=== PATIENT | female | born 1995 | race Caucasian/White ===

== ENCOUNTER 2019-10-01 10:53 | Outpatient (CLI) | payer OTHER, SELFPAY ==
--- NOTE | 2019-10-01 11:07 | US_ITS ---
WS: [id number] ULTRASOUND THYROID TECHNIQUE: Ultrasound of the thyroid. CLINICAL INFORMATION: enlarged thyroid COMPARISON: None. FINDINGS: Thyroid: Right and left thyroid lobes are normal in size and echotexture. No thyroid nodules are pres ent. Right thyroid lobe: 5.7 cm x 1.8 cm x 1.8 cm Left thyroid lobe: 4.3 cm x 1.6 cm x 1.1 cm. Isthmus: 0.3 mm. Cervical lymphadenopathy: None. US/US thyroid [id number] IMPRESSION: Normal thyroid ultrasound examination.
--- NOTE | 2019-10-01 11:31 | XR_ITS ---
WS: [id number] Lumbar spine, 3 views, 10/01/2019 Clinical Data: LUMBAR PAIN DOWN LEFT LEG/SCIATICA Comparison: None. Findings: No compression fractures or subluxation is seen. No disc space narrowing is seen. The transverse proc esses and SI joints are normal. XR/XR lumbar spine 2-3V* [id number] Impression: Negative lumbar spine.
== END 2019-10-01 10:54 | disposition home or self-care (01) ==
PROVIDERS: Family Provider Nurse Practitioner; PCP Nurse Practitioner; Visit Provider Nurse Practitioner
DX: M54.30 Sciatica, unspecified side (principal); E04.9 Nontoxic goiter, unspecified
CPT/HCPCS: 72100; 76536; 80053; 84443

== ENCOUNTER 2020-04-24 16:45 | Outpatient (CLI) | payer OTHER, SELFPAY ==
--- NOTE | 2020-04-24 16:45 | MRR_ITS ---
PROCEDURE INFORMATION: Exam: MR Head Without Contrast Exam date and time: 04/24/2020 4:50 PM Age: 24 years old Clinical indication: Pain; Headache; Without aura; Does respond to medication; Without migrainosus; Patient HX: HX of chronic migraine, recently getting worse in severity and longevity; Additional info: G43.709 chronic migraine without aura, not intractable, w. . . TECHNIQUE: Imaging protocol: MR of the head without contrast. COMPARISON: No relevant prior studies available. FINDINGS: Brain: There is no acute intracranial hemorrhage, cerebral edema, or midline shift. No restricted diffusion is present to suggest acute infarction. Ventricles: No hydrocephalus. Bones/joints: Unremarkable. Sinuses: There is a small mucus retention cyst or polyp within the right maxillary sinus. Mastoid air cells: The mastoid air cells are clear. Orbits: Unremarkable. Soft tissues: Unremarkable. MR/MR head wo con* [id number] IMPRESSION: No acute intracranial abnormality.
== END 2020-04-24 16:46 | disposition home or self-care (01) ==
LOC: RADSHAW 16:51
PROVIDERS: PCP Nurse Practitioner; Visit Provider Nurse Practitioner Family
DX: G43.709 Chronic migraine without aura, not intractable, without status migrainosus (principal)
CPT/HCPCS: 70551

== ENCOUNTER → 2020-05-20 14:52 | Outpatient (BNVA) | payer OTHER, SELFPAY | PROVIDERS: PCP Nurse Practitioner; Visit Provider Internal Medicine | DX: R63.5 Abnormal weight gain (principal); E66.01 Morbid (severe) obesity due to excess calories; Z68.41 Body mass index [BMI] 40.0-44.9, adult; G43.709 Chronic migraine without aura, not intractable, without status migrainosus; L68.0 Hirsutism | CPT/HCPCS: 99204 ==

== ENCOUNTER 2020-05-23 09:04 | Outpatient (CLI) | payer OTHER, SELFPAY ==
[2020-05-23 10:22] LABS: Thyroid Stimulating Hormone 2.19 uIU/mL (0.27-4.20)
== END 2020-05-23 09:05 | disposition home or self-care (01) ==
PROVIDERS: PCP Nurse Practitioner; Visit Provider Internal Medicine
DX: G43.709 Chronic migraine without aura, not intractable, without status migrainosus (principal)
CPT/HCPCS: 36415; 84443

== ENCOUNTER → 2020-07-21 14:26 | Outpatient (BNVA) | payer OTHER, SELFPAY | PROVIDERS: PCP Nurse Practitioner; Visit Provider Internal Medicine | DX: E66.01 Morbid (severe) obesity due to excess calories (principal); Z68.41 Body mass index [BMI] 40.0-44.9, adult; L68.0 Hirsutism; R63.5 Abnormal weight gain | CPT/HCPCS: 99213 ==

== ENCOUNTER → 2020-10-27 16:43 | Outpatient (BNVA) | payer OTHER, SELFPAY | PROVIDERS: PCP Nurse Practitioner; Visit Provider Nurse Practitioner | DX: Z12.4 Encounter for screening for malignant neoplasm of cervix (principal); Z11.3 Encounter for screening for infections with a predominantly sexual mode of transmission; N72 Inflammatory disease of cervix uteri; Z30.49 Encounter for surveillance of other contraceptives | CPT/HCPCS: 87491; 87591; 88175 ==

== ENCOUNTER 2021-05-15 10:55 | Outpatient (CLI) | payer OTHER, SELFPAY ==
[2021-05-15 11:22] LABS: Basophils % 0.7 %; Eosinophils # 0.1 10^3/uL (0.0-0.8); Hematocrit 39.3 % (37.0-47.0); Hemoglobin 12.6 g/dL (11.5-15.3); Lymphocytes % 33.3 %; Mean Corpuscular HGB Conc 32.1 g/dL (30.0-36.0); Mean Corpuscular Hemoglobin 26.6 pg (28.0-34.0); Mean Corpuscular Volume 83.1 fl (81-99); Mean Platelet Volume 9.9 fL (7.4-10.4); Monocytes # 0.4 10^3/uL (0.2-0.9); Monocytes % 6.8 %; Neutrophils # 3.38 10^3/uL (1.8-7.7); Neutrophils % 57.9 %; Nucleated Red Blood Cells % 0 %; Platelet Count 330 10^3/cmm (130-400); Red Blood Count 4.73 10^6/uL (4.1-5.3); Red Cell Distribution Width 15.4 % (12.1-15.1); White Blood Count 5.9 10^3/uL (4.0-10.0)
[2021-05-15 11:55] LABS: 25 Hydroxy Vitamin D 35 ng/mL (30-100); Alanine Aminotransferase 10 U/L (0-33); Albumin Level 4.2 g/dL (3.5-5.2); Alkaline Phosphatase 62 IU/L (35-105); Anion Gap 16.1 (5-19); Aspartate Amino Transferase 15 U/L (0-32); Blood Urea Nitrogen 8 mg/dL (6-20); Calcium 9.1 mg/dL (8.5-10.5); Carbon Dioxide 21 mmol/L (22-29); Chloride 107 mmol/L (98-107); Chol HDL Ratio 3.16 mg/dL (0.0-4.40); Cholesterol 180 mg/dL (0-200); Glomerular Filtration Rate 88.9 mL/min (90-130); Glucose 119 mg/dL (65-115); HDL Cholesterol 57 mg/dL (60-100); LDL Cholesterol Calculated 93 mg/dL (50-129); Osmolality Calculated 289 mOsm/kg (285-295); Potassium 4.1 mmol/L (3.5-5.1); Sodium 140 mmol/L (136-145); Thyroid Stimulating Hormone 1.36 uIU/mL (0.27-4.20); Total Bilirubin 0.2 mg/dL (0.15-1.2); Total Protein 7.2 g/dL (6.6-8.7); Triglycerides 151 mg/dL (0-150); VLDL Cholestrol Calculation 30 mg/dL (0-30); Vitamin B12 406 pg/mL (232-1245)
[2021-05-17 16:59] LABS: Thyroglobulin AB <1 IU/mL (< or = 1)
== END 2021-05-15 10:56 | disposition home or self-care (01) ==
PROVIDERS: PCP Nurse Practitioner; Visit Provider Nurse Practitioner
DX: R53.83 Other fatigue (principal); E55.9 Vitamin D deficiency, unspecified
CPT/HCPCS: 80053; 80061; 82306; 82607; 84443; 85025; 86800

== ENCOUNTER → 2021-06-01 11:34 | Outpatient (BNVA) | payer OTHER, SELFPAY | PROVIDERS: PCP Nurse Practitioner; Visit Provider Nurse Practitioner | DX: J02.0 Streptococcal pharyngitis (principal) | CPT/HCPCS: 87880 ==

== ENCOUNTER 2021-07-07 12:50 | Outpatient (CLI) | payer OTHER, SELFPAY ==
[2021-07-07 13:37] LABS: Estmated Average Glucose 100; Hemoglobin A1C 5.1 % (4.0-6.0)
== END 2021-07-07 12:51 | disposition home or self-care (01) ==
PROVIDERS: PCP Nurse Practitioner; Visit Provider Nurse Practitioner
DX: R73.9 Hyperglycemia, unspecified (principal)
CPT/HCPCS: 83036

== ENCOUNTER 2021-08-20 20:02 | Emergency (ER) | payer OTHER, SELFPAY ==
[2021-08-20 20:09] VITALS: BP 158/106; PULSE 104; RESP 16; TEMP 36.7; O2SAT 99
--- NOTE | 2021-08-20 20:14 | ED_ITS ---
HPI - Extremity Problem General: Chief complaint: Extremity Problem,Nontraumatic Stated complaint: Rtb Leg Pain-Burning Time Seen by Provider: 08/20/21 20:09 History of Present Illness: HPI Narrative: Patient is a 25-year-old female comes to the ED with right leg pain. Patient says symptoms started yesterday. She denies any injury or trauma to cause pain. Says pain is located in right lower leg near calf muscle. She says that some burning type pain. She admits to having a history of sciatica, but never has pain radiate all the way down to her lower leg and it usually stops around the thigh region. Denies any history of DVTs or blood clots. Patient is currently on control. She denies any chest pain, shortness of breath or hemoptysis. Associated symptoms: Deny chest pain, fever(s) or rash Review of Systems Const: Denies: fever(s), chills or fatigue Eyes: Denies: change in vision or eye discomfort ENMT: Denies: throat pain, odynophagia, nasal discharge or nasal congestion Card: Denies: chest pain, palpitations, edema, swelling of feet/ankles, dyspnea on exertion or orthopnea Resp: Denies: dyspnea, productive cough or non-productive cough GI: Denies: abdominal pain, nausea, vomiting, diarrhea, constipation or hematochezia : Denies: flank pain, dysuria or hematuria Musc: Reports: extremity pain (right lower leg); Denies: neck pain, back pain or extremity swelling Skin/Breast: Denies: rash or new lesions Neuro: Denies: headache(s), numbness in extremities or weakness in extremities [facility] ED PFSH: Medical History Anxiety Chronic migraine Encounter for surveillance of nuvaring Obesity (BMI 30-39.9) Surgical History History of tonsillectomy and adenoidectomy age 5 Family History Other Cancer Diabetes Heart disease Hypertension Social History Second hand smoke exposure: No Smoking risk assessment/counseling performed?: No Alcohol intake: current Alcohol intake frequency: holidays/special occasions only Desire information about alcohol rehabilitation?: No Counseling given: No Desire information about substance/drug rehabilitation?: No Counseling given: No Adopted: No Caregiver/support person: No Lives independently: Yes Household members: significant other Housing: House Marital status: Single Number of children: 0 service: No Current occupational status: employed Current occupation: [employer] – [place] History of recent travel: No Sexually active: Yes Current gender identity: Female Physical Exam Const: COMMON NORMALS: no acute distress, patient oriented x3, healthy appearing and alert GENERAL APPEARANCE: cooperative and comfortable HENMT: COMMON NORMALS: normocephalic HEAD & SCALP: normocephalic MOUTH: Normal oral and palatal mucosa present THROAT: posterior oropharynx normal and uvula midline Neck/C-Spine: COMMON NORMALS: supple GENERAL: Yes normal visual inspection Resp: COMMON NORMALS: normal respiratory effort, No retractions, No use of accessory muscles and clear to auscultation bilaterally AUSCULTATION: clear to auscultation bilaterally Cardio: COMMON NORMALS: regular rate, regular rhythm, S1 normal heart sound present, S2 normal heart sound present, No gallops present (Cardio), No clicks present (Cardio), No murmurs present (Cardio) and Peripheral pulses 2+ throughout RATE: regular rate RHYTHM: regular rhythm HEART SOUNDS: S1 normal heart sound present and S2 normal heart sound present PERIPHERAL PULSES: Peripheral pulses 2+ throughout GI: COMMON NORMALS: Normal to inspection, nondistended, normoactive bowel sounds present, Soft to palpation, non-tender and no masses PALPATION: Yes Soft to palpation : COMMON NORMALS: Yes no CVA tenderness BLADDER/KIDNEY EXAM: Yes no CVA tenderness Back/Pelvis: COMMON NORMALS: no CVA tenderness Extremity: COMMON NORMALS: normal to inspection, full ROM, no calf tenderness and no pedal edema Neuro: COMMON NORMALS: patient oriented x3 and moves all extremities SENSORIUM/ORIENTATION: Yes alert Skin: GENERAL SKIN EXAM: dry skin Course Vital Signs: Vital signs: Vital Signs Temperature 98.0 F 08/20/21 20:09 Pulse Rate 104 H 08/20/21 20:09 Respiratory Rate 16 08/20/21 20:09 Blood Pressure 158/106 08/20/21 20:09 Pulse Oximetry 99 08/20/21 20:09 MDM - Extremity (Nontraumatic) MDM Narrative: Medical decision making narrative: Patient is a 25-year-old female comes to the ED with nontraumatic pain then paresthesia to localized spot on right lower leg. Denies any injury. Patient has a history of sciatica pain. Denies any chest pain, shortness of breath or hemoptysis. Vital stable. Exam is benign and patient has no right lower extremity edema or calf tenderness. Ultrasound venous duplex right lower extremity showed no DVTs or blood clots. Patient was diagnosed with paresthesia and pain of right lower extremity. She was discharged home with a prescription for prednisone. Return to ED precautions given. Follow-up with PCP in 7 to 10 days for reevaluation. Patient understood agree with plan. Imaging Data^: US Vascular: Attestation: I personally reviewed and interpreted this imaging study as follows: Radiologist's impression: Ultrasound venous duplex right lower extremity?prelim report no DVTs or blood clots seen. Discharge Plan Discharge Patient Disposition: Home Clinical Impression: Paresthesia and pain of extremity Condition: Stable Prescriptions: New prednisone 20 mg tablet 20 mg PO BID 5 Days Qty: 10 RF: 0 No Action Contrave 8-90 mg tablet extended release 2 tab PO BID Qty: 120 RF: 2 NuvaRing 0.12-0.015 mg/24 hr ring 1 vag ring VAGINAL .wear for 3 weeks 90 Days Qty: 3 RF: 3 Discharge Orders: Discharge ED (Routine); Ordered 08/20/21 Ordered By: Ty Maddox Referrals: Manpreet Alonzo, [facility] [Primary Care Provider] - Discharge Diet: Regular Discharge Activity: Resume usual activity Activity Restrictions/Additional Instructions: Follow-up with medical provider as directed in 7 to 10 days reevaluation. Apply cold pack on painful sore areas of right lower leg to help with symptoms. Take medications as prescribed. Return to the ER or your medical provider if condition worsens. Please read and understand discharge instructions. Thank you for choosing [facility] for your healthcare needs today. Please realize this is an emergency room and that we are providing you with a medical screening exam and this may not be complete and all inclusive of all the testing and or work up that you may need to determine your ailment or severity of your illness. It is very important that you follow up as instructed or that you return to the Emergency Department should you have concerns or if your condition changes or worsens in any way. Coding Level of Care Code ED Counter Tender for Chg Fwd Exam Comprehensive
--- NOTE | 2021-08-20 20:21 | USR_ITS ---
PROCEDURE INFORMATION: Exam: US Duplex Right Lower Extremity Veins, Limited Exam date and time: 08/20/2021 8:21 PM Age: 25 years old Clinical indication: Pain; Leg, lower; Right; Additional info: Non traumatic pain in right lower leg TECHNIQUE: Imaging protocol: Real-time Duplex ultrasound of the Right Lower Extremity with 2-D dueñas scale, color Doppler flow and spectral waveform analysis with image documentation. Limited exam was focused on the right lower extremity veins. COMPARISON: CT Abdomen/Pelvis Renal [id number] 07/21/2017 12:55 PM FINDINGS: Real-time grayscale, Doppler, color Doppler and duplex imaging of the right lower extremity was performed. Spectral analysis was performed. There is normal flow and compressibility of the common femoral, superficial femoral and popliteal veins. There is normal augmentation. There is no intraluminal thrombus. The visualized calf veins were unremarkable. US/[place] [id number] IMPRESSION: No evidence for deep venous thrombosis. Radiation Dose CTDIVOL = (mGy): DLP = (mGy-cm)
== END 2021-08-20 21:41 | disposition home or self-care (01) ==
PROVIDERS: Emergency Provider Physician Assistant; PCP Nurse Practitioner
DX: R20.2 Paresthesia of skin (principal); M79.604 Pain in right leg
CPT/HCPCS: 93971; 99282

== ENCOUNTER 2021-11-25 08:05 | Outpatient (CLI) | payer OTHER, SELFPAY ==
--- NOTE | 2021-11-25 08:21 | FL_ITS ---
WS: [id number] Barium swallow and esophagram, upper GI series with air, 11/25/2021 Clinical Data: K21.9 - Gastro-esophageal reflux disease without esophagitis Comparison: None. Fluoroscopy time: 1.1 minutes. Findings: The patient swallowed the thick and thin barium, and it flowed through the hypopharynx without hesita tion. No stricture, mass, polyp or erosion was seen. The barium into the esophagus and there was normal motility throughout. No hiatal hernia, reflux, str icture, polyp, mass, erosion or ulcer was noted. The barium passed into the stomach which was well distended. No erosion, polyp, mass or deformity cou ld be seen. No gastric ulcer was present. Barium then passed into the duodenal bulb which distended normally without ulceration. The proximal small bowel is normal. FL/FL upper GI w air* [id number] Impression: Normal esophagram and upper GI series.
== END 2021-11-25 08:06 | disposition home or self-care (01) ==
LOC: RAD 08:05
PROVIDERS: PCP Nurse Practitioner; Visit Provider Surgery
DX: K21.9 Gastro-esophageal reflux disease without esophagitis (principal)
CPT/HCPCS: 74246

== ENCOUNTER 2022-01-20 12:48 | Outpatient (CLI) | payer OTHER, SELFPAY ==
[2022-01-20 14:33] LABS: Basophils # 0.1 10^3/uL (0.0-0.1); Basophils % 0.9 %; Eosinophils % 0.5 %; Hematocrit 35.2 % (37.0-47.0); Hemoglobin 11.3 g/dL (11.5-15.3); Mean Corpuscular HGB Conc 32.1 g/dL (30.0-36.0); Mean Corpuscular Hemoglobin 27.4 pg (28.0-34.0); Mean Corpuscular Volume 85.4 fl (81-99); Mean Platelet Volume 10.2 fL (7.4-10.4); Monocytes # 0.5 10^3/uL (0.2-0.9); Monocytes % 8.5 %; Neutrophils # 2.91 10^3/uL (1.8-7.7); Neutrophils % 52.9 %; Nucleated Red Blood Cells % 0 %; Platelet Count 335 10^3/cmm (130-400); Red Blood Count 4.12 10^6/uL (4.1-5.3); Red Cell Distribution Width 12.6 % (12.1-15.1); White Blood Count 5.5 10^3/uL (4.0-10.0)
[2022-01-20 14:59] LABS: Alanine Aminotransferase 12 U/L (0-33); Albumin Level 4.4 g/dL (3.5-5.2); Alkaline Phosphatase 65 IU/L (35-105); Chloride 103 mmol/L (98-107); Chol HDL Ratio 3.66 mg/dL (0.0-4.40); Cholesterol 194 mg/dL (0-200); Ferritin 5 ng/mL (15-150); HDL Cholesterol 53 mg/dL (60-100); Iron 37 ug/dL (37-145); LDL Cholesterol Calculated 113 mg/dL (50-129); LDL HDL Ratio 2.13 RATIO (0.00-3.22); Potassium 4.1 mmol/L (3.5-5.1); Sodium 138 mmol/L (136-145); Total Iron Binding Capacity 407 mcg/dl; Triglycerides 140 mg/dL (0-150); Unsaturated Iron Binding 370 ug/dL (112-347)
[2022-01-20 15:04] LABS: Calcium 9.7 mg/dL (8.5-10.5); Parathyroid Hormone 15.3 pg/mL (15-65)
[2022-01-20 15:13] LABS: Folate Level 15.2 ng/mL (4.8-37.3)
[2022-01-20 15:53] LABS: Anion Gap 20.1 (5-19); Aspartate Amino Transferase 15 U/L (0-32); Blood Urea Nitrogen 11 mg/dL (6-20); Calcium 9.7 mg/dL (8.5-10.5); Carbon Dioxide 19 mmol/L (22-29); Globulin 3.3 g/dL (1.3-4.6); Glomerular Filtration Rate 88.1 mL/min (90-130); Glucose 72 mg/dL (65-115); Magnesium 2.3 mg/dL (1.7-2.3); Osmolality Calculated 284 mOsm/kg (285-295); Thyroid Stimulating Hormone 1.39 uIU/mL (0.27-4.20); Total Bilirubin 0.2 mg/dL (0.15-1.2); Total Protein 7.7 g/dL (6.6-8.7); Vitamin B12 419 pg/mL (232-1245)
[2022-01-23 14:02] LABS: Vit D 1,25 (Oh)2, Total 56 pg/mL (18-72); Vit D2 1,25 (Oh)2 <8 pg/mL; Vit D3 1,25 (Oh)2 56 pg/mL
[2022-01-24 16:11] LABS: Vitamin B1(Thiamin) Plas/Ser 8 nmol/L (8-30)
[2022-01-25 11:22] LABS: Zinc Level, Serum or Plasma 81 mcg/dL (60-130)
== END 2022-01-20 12:49 | disposition home or self-care (01) ==
LOC: LAB 12:50
PROVIDERS: PCP Nurse Practitioner; Visit Provider Surgery
DX: E88.81 Metabolic syndrome and other insulin resistance (principal)
CPT/HCPCS: 36415; 80053; 80061; 82310; 82607; 82652; 82728; 82746; 83540; 83550; 83735; 83970; 84425; 84443; 84630; 85025

== ENCOUNTER 2022-02-01 09:35 | Inpatient (IN) | payer OTHER, SELFPAY ==
[2022-01-26 10:22] VITALS: BMI 34.7
--- NOTE | 2022-01-26 15:02 | ANES.PREANE2 ---
Pre-Anesthetic Assessment Height/Weight: Height 1.65 m Weight 94.801 kg Operation Date: 02/01/22 11:50 Proposed Procedures p Laparoscopic Gastric Sleeve w/ EGD 99761/73146/E66.01(Not Applicable) - Scooter Reis MD Familial anesthetic complications: None Was Beta Wolf taken within 24 hours: N/A Was Clonidine taken within 24 hours: N/A Social No alcohol and No tobacco Exam alert, oriented x 3, clear to auscultation bilaterally and regular rate & rhythm Airway Submandibular: within normal limits Cervical ROM: within normal limits Mallampati: Class II Dentition: full Metabolic Morbid Obesity Neuropsych Anxiety and Headache Anesthetic Plan ASA status: 2 Anesthesia: General Medications/Allergies Home Medications Medication Instructions Recorded Confirmed Last Taken Type etonogestrel 0.12 mg-ethinyl 1 vag ring VAGINAL .wear for 3 09/20/21 01/26/22 Unknown Rx estradiol 0.015 mg/24 hr vaginal weeks 90 Days #3 ea ring (NuvaRing) Allergies Allergy/AdvReac Type Severity Reaction Status Date / Time No Known Allergies Allergy Verified 01/26/22 10:56 [facility] Anesthesia Medical History Anxiety Chronic migraine Encounter for surveillance of nuvaring Obesity (BMI 30-39.9) Surgical History History of tonsillectomy and adenoidectomy age 5 Family History Other Cancer Diabetes Heart disease Hypertension Social History Smoking and tobacco status: never smoked Second hand smoke exposure: No Smoking risk assessment/counseling performed?: No Alcohol intake: current Alcohol intake frequency: holidays/special occasions only Desire information about alcohol rehabilitation?: No Counseling given: No Desire information about substance/drug rehabilitation?: No Counseling given: No Adopted: No Caregiver/support person: No Lives independently: Yes Household members: significant other Housing: House Marital status: Single Number of children: 0 service: No Current occupational status: employed Current occupation: [employer] [place] History of recent travel: No Sexually active: Yes Current gender identity: Female Data Anesthesia Cardiac Studies: No Data to Display
[2022-02-01] VITALS (27 sets, daily range): BP systolic 119–139; BP diastolic 68–90; PULSE 60–96; RESP 14–26; TEMP 36.4–37.2; O2SAT 96–100; BMI 34.4; BMI 35.6
--- NOTE | 2022-02-01 06:24 | W.PM.OPSUD ---
Surgery/Procedure H&P Update DATE OF PROCEDURE: February 01, 2022 DATE H&P PERFORMED: 01/26/22 H&P UPDATE INFORMATION: I have reviewed H&P completed within last 30 days, I have examined patient prior to procedure and Changes to prior documentation as noted here ( patient is down from 218 to 207 pounds) PLANNED PROCEDURE: Operation Date: 02/01/22 07:00 Proposed Procedures p Laparoscopic Gastric Sleeve w/ EGD [id number]/19502/E66.01(Not Applicable) - Scooter Reis MD
[2022-02-01] MEDS: heparin 5,000 unit/mL INJ 1 mL 5000 UNIT SUBCUT (06:43)
[2022-02-01] MEDS: pantoprazole 40 mg SDV IVP (06:43)
[2022-02-01] MEDS: scopolamine 1.5 Patch 1 PATCH TRANSDERMA (06:44)
[2022-02-01] MEDS: acetaminophen 1,000 MG/100 ML PIGGYBACK 400 MG IV ×2 (06:44→15:15)
[2022-02-01] MEDS: sodium chloride 0.9% 1,000 ML 999 ML IV (06:46)
[2022-02-01 07:09] LABS: OR HCG Qualitative Urine Negative (Negative)
--- NOTE | 2022-02-01 07:38 | ANES.PAUD2 ---
Pre-Anesthetic Update Pre-Anesthetic Assessment: Date of Surgery/Procedure: 02/01/22 Proposed Procedure: Operation Date: 02/01/22 07:00 Proposed Procedures p Laparoscopic Gastric Sleeve w/ EGD [id number]/E66.01(Not Applicable) - Scooter Reis MD Any changes to Pre-Anesthetic Assessment?: No Last Intake: Intake Last Liquid Date 01/31/22 Last Liquid Time 21:00 Last Solid Date 01/31/22 Last Solid Time 08:00 Vitals: Temperature 98.3 F 02/01/22 06:09 Temperature Source Temporal Artery S can 02/01/22 06:09 Pulse Rate 96 02/01/22 06:09 Respiratory Rate 18 02/01/22 06:09 Blood Pressure 139/73 02/01/22 06:09 Blood Pressure Viviana n 95 02/01/22 06:09 Pulse Oximetry 98 02/01/22 06:09 Oxygen Delivery Me thod 02/01/22 06:12 Exam: Pre-Anes Outpt Exam: alert, oriented x 3, clear to auscultation bilaterally and regular rate & rhythm Cardiac Studies: No Data to Display
--- NOTE | 2022-02-01 08:47 | SUR.OPER ---
Family Notified Of Patient's Status Via Phone.
--- NOTE | 2022-02-01 09:18 | PM.OP ---
Operative Report Date of procedure: February 01, 2022 Post-op findings: Obesity Procedure done: Laparoscopic vertical sleeve gastrectomy with intraoperative EGD Specimens removed/disposition: Subtotal gastrectomy with gastric sleeve, sutures marked proximal Surgeon: Scooter Reis MD Tawer: Jayjay Carson Circulating nurse Ana Anesthesia: General (ANN MARIE Shukla and Prashanth Paulino) Estimated blood loss (mL): 20 IV fluids (mL): 1,600 Urine output (mL): 200 Procedure: Patient was identified in the holding area, appropriate pharmacologic DVT prophylaxis was given and preoperative IV fluid hydration, patient was then taken to the operating room where the patient was placed in supine position, intubated by anesthesia prophylactic antibiotics were given per protocol, Time-out was done verifying the patient's name/date of /planned procedure and destination after the procedure, all were in agreement.SCDs confirmed to be functioning, and beta marlo protocol was confirmed. A Riggins catheter was inserted by the circulating nurse revealing clear urine. A foot board was applied to secure the patient while the patient is placed in reversed Trendelenburg, all pressure points were padded, and the patient was appropriately secured to the table, anesthesia was asked to rotate the table back and forth to verify that the patient is appropriately secured, and that was the case. The abdomen was prepped and draped under the usual sterile technique. A transverse incision was made with a 15 blade scalpel approximately 15 cm below the xiphoid process and 3 cm left of the midline. A 5 mm optical trocar port was placed under direct vision into the peritoneal cavity without initial evidence of injury to peritoneal structures upon entry. The peritoneal cavity was insufflated with carbon dioxide gas up to 15 mmHg pressure. A 45? angle laparoscopy was placed through the port into the peritoneal cavity there was no significant blood, fluid, or evidence of intra-abdominal injury under direct visualization, Longer trocars were then used; a 12 mm trocar port was placed in the right epigastric region and a fourth 5 mm trocar port was placed in the mid epigastric region more caudad than and medial to the previous port. A 5 mm trocar port was placed in the left lateral flank and additional 5 mm trocar was inserted midway between the left lateral flank trocar and the initial 5 mm trocar. There after the index 5 mm trocar was switched to a 12 mm trocar under direct visualization after extending the skin incision. I lifted the omentum up to make sure there were no injuries encountered from the initial trocar insertion, the underlying transverse colon and small bowel viscera were normal. All trocars inserted were long arc trocars due to the thick layer of subcutaneous tissue that the patient has.Patient was then placed in the reversed Trendelenburg. Following this, the greater curvature of the stomach was freed from the omentum using the ENSEAL device. This division included the short gastric vessels proximally. This dissection was carried from approximately 4 cm-6 cm proximal to the pylorus and extending all the way up to the angle of Hiss. During this process the posterior aspect of the stomach was mobilized from the underlying peritoneum and the posterior aspect of the stomach was well exposed. With the greater curvature of the stomach exposed from within 4-6 cm of the pylorus and extending to the angle of Hiss, which also included the posterior stomach, a 40 Brazilian standard template passed under direct vision down the esophagus, stomach, and into the first part of the duodenum by the anesthesia provider and under direct guidance and visualization by me, via the laparoscopy. Using the template 40 Brazilian aligned along the lesser curvature of the stomach and all the way to the first part of the Duodenum, the 40 Brazilian Bougie was used as a template the laparoscopic vertical gastric sleeve was performed starting from a point about 5 cm from the pylorus along the greater curvature. Using the [place] Laparoscopic ERIC linear cutting stapler with [place] Endopath enforcement, a series of mirian were used to transect the stomach in a vertical fashion along the left side of the template. Through the entire division of the stomach using the staplers, the template was always checked to be in good place and well aligned to the lesser curvature while dividing the stomach. This was carried all the way to the angle of Hiss. [place] 60 mm Green loads were used for the distal third of the stomach and Gold loads were used for the more proximal part of the stomach and then blue loads with reinforcement. All staplers were reinforced by Endopath. The staple line along the remaining tubularized stomach was tested for leaks and bleeding under direct vision as the 40 Brazilian template was exchanged (and there was no evidence of blood on the tip of the template) by a standard diagnostic EGD via the mouth by my me after I scrubbed out, insufflation was achieved and the staple line submerged under saline, meanwhile a clamp was applied distally onto the end of the tubularized stomach to allow insufflation test for leak. There was no evidence of leak .There was adequate hemostasis along the staple line.EGD was taken out at this point after deflation of the tubularized stomach. I scrubbed the back in. The transected partial stomach, which included the greater curvature, was removed from the peritoneum through the first 12 mm trocar site, there was some spillage of gastric contents in the wound but that was thoroughly irrigated after the specimen was removed. And was sent for permanent pathology. Prior to closure of the fascia. A final look laparoscopy identified no injuries or bleeding. Except for minor oozing along the distal staple line and 5 mm clips were applied. And the proximal part is well Bilateral TAP (transversus abdominous plain peripheral nerve block) block using Exparel 20 mL Exparel,40 ml Normal saline,20 ml bupivacaine 0.25% 30 mL on each side injected, 20 mL injected the port sites. An interrupted #1 PDS suture on a granny needle suture passer was used to close the right epigastric and the other 12 mm trocar left of the midline fascial defects under direct visualization. The other trocars were removed under direct vision and no evidence of bleeding was identified. The pneumoperitoneum was decompressed. All skin incisions were irrigated with saline, then closed with mirian, followed by application of sterile dressings. The patient was extubated and taken to the recovery room with normal vital signs. Riggins catheter was maintained All counts of instruments, sponges and needles were completed at the end of the procedure I was present for the whole entire procedure
--- NOTE | 2022-02-01 09:39 | SUR.PHASEI ---
0925 PT TO PACU 5 PT DOES NOT AWAKE TO VOICE OR TOUCH, GOOD RESP EFFORT NOTED SATS 100% ON 8LMASK, ABDOMEN SOFT WITH 5 SITES WITH BANDAIDS, HOB AT 30 DEGREES, MARIN TO DEPENDANT DRAINAGE WITH CLEAR LT YELLOW URINE TO TUBING AND BAG, STATLOCK PLACED TO RT INNER THIGH, BILAT SCDS ON AND WORKING, IV TO RT INNER FOREARM WITH NS 700ML UP AT KVO RATE PER GRAVITY, PT HAS #18 PIID TO LT HAND. NO CREPITUS NOTED TO NECK OR SHOULDERS, MONITOR WITH SR NO ECTOPY NOTED VSS. WARM BLANKETS TO PT, ID BRACELET TO LT WRIST AND PT ID'D WITH 2 IDENTIFIERS.
[2022-02-01] MEDS: fentaNYL 50 mcg/mL INJ 2mL IVP ×2 (09:48→10:01)
[2022-02-01] MEDS: ondansetron 2 mg/ML SDV 2 mL 4 MG IVP ×2 (09:52→15:15)
--- NOTE | 2022-02-01 10:12 | SUR.PHASEI ---
SEE PAIN MED AND NAUSEA MED GIVEN, DR GUILLAUME AND DR GUTIERREZ AT BEDSIDE, AWARE OF THE MEDS , PT SLEEPS UNLESS AWAKENED THEN MOANS AND C/O OF PAIN AND NAUSEA, BUT QUICKLY BACK TO SLEEP , PT OK TO GO TO FLOOR PER DR GUTIERREZ AND CONTINUE ORDERED NAUSEA MEDS IM ON FLOOR.L
[2022-02-01] MEDS: famotidine 20 mg/2 mL INJ IVP ×2 (10:46→21:06)
[2022-02-01] MEDS: lactated ringers 1,000 ML 150 ML IV ×3 (10:46→23:08)
--- NOTE | 2022-02-01 10:51 | SUR.PHASEI ---
PT TO FLOOR PER CART, MOM AND DAD WALKED UP WITH PT TO ROOM, PT SLEEPY BUT AWAKES AND TALKS TO MOM, PT MOVED TO BED WITH ASSIST OF 4 STAFF, PT AWAKES , VERBALLY C/O O NAUSEA AND PAIN, THEN QUICKLY BACK TO SLEEP RESPIRATIONS EVEN AND UNLABORED, VSS.
[2022-02-01 11:57] LABS: Glucose Point of Care 139 mg/dL (70-110)
[2022-02-01] MEDS: morphine 4 mg/mL SDV 1 mL 2 MG IVP (12:22)
--- NOTE | 2022-02-01 16:26 | ANE.PACU2 ---
Inpatient post-anesthesia follow up: Airway intact: Yes Vital signs: Temperature 97.7 F Pulse Rate 89 Respiratory Rate 14 Blood Pressure 131/86 Pulse Oximetry 98 Oxygen Delivery Me thod Room Air Oxygen Flow Rate 3 Fraction of Inspir ed Oxygen Hydration adequate: Yes Nausea and vomiting: No Pain level: 3 Mental status: Baseline
[2022-02-01] MEDS: HYDROmorphone 1 mg/mL INJ 1 mL IVP ×3 (17:19→22:28)
[2022-02-01 17:46] LABS: Glucose Point of Care 153 mg/dL (70-110)
--- NOTE | 2022-02-01 19:22 | PC.NURSE ---
This RN witnessed FABIAN Carter waste 0.5 mg of dilaudid.
--- NOTE | 2022-02-01 19:33 | PC.NURSE ---
Gave patient 0.5mg of Dilaudid instead of 1mg Dilaudid due to change in respiratory rate.
--- NOTE | 2022-02-01 20:37 | PC.NURSE ---
Pt refused morphine stating I would rather lay here in pain than take that and stating it doesn't even touch the pain . Pt and family educated on narcotics and respiratory depression. This RN counted respirations of 24. Dilaudid 1 mg administered as ordered over 5 minutes. Respirations decreased to 13. Re-assessed pt after 30 minutes and respirations 18 resting with eyes closed.
[2022-02-01 21:08] LABS: Glucose Point of Care 127 mg/dL (70-110)
[2022-02-02] VITALS (9 sets, daily range): BP systolic 137–147; BP diastolic 82–89; PULSE 57–85; RESP 12–20; TEMP 36.8–37.2; O2SAT 96–97
[2022-02-02] MEDS: acetaminophen 1,000 MG/100 ML PIGGYBACK 400 MG IV ×2 (02:09→19:43)
[2022-02-02] MEDS: HYDROmorphone 1 mg/mL INJ 1 mL IVP ×3 (04:04→12:46)
[2022-02-02] MEDS: ondansetron 2 mg/ML SDV 2 mL 4 MG IVP ×3 (04:06→19:47)
[2022-02-02 05:01] LABS: Hematocrit 31.7 % (37.0-47.0); Hemoglobin 10.2 g/dL (11.5-15.3)
[2022-02-02 05:22] LABS: Anion Gap 18.1 (5-19); Blood Urea Nitrogen 4 mg/dL (6-20); Calcium 7.9 mg/dL (8.5-10.5); Carbon Dioxide 17 mmol/L (22-29); Chloride 103 mmol/L (98-107); Glomerular Filtration Rate 151.6 mL/min (90-130); Glucose 129 mg/dL (65-115); Osmolality Calculated 277 mOsm/kg (285-295); Potassium 4.1 mmol/L (3.5-5.1); Sodium 134 mmol/L (136-145)
[2022-02-02] MEDS: heparin 5,000 unit/mL INJ 1 mL 5000 UNIT SUBCUT (05:22)
[2022-02-02] MEDS: lactated ringers 1,000 ML 150 ML IV (05:22)
--- NOTE | 2022-02-02 06:25 | PC.NURSE ---
Pt encouraged to amb again this am and get out of bed to the chair. Pt declined at this time.
[2022-02-02 06:34] LABS: Glucose Point of Care 115 mg/dL (70-110)
--- NOTE | 2022-02-02 06:47 | PM.PN ---
Subjective Subjective: Patient overall feels well. Adequate urine output. Patient is a bit sensitive to pain medications. Medications: Reviewed: Yes Vitals/I&O/Wt Last Vital Signs Temp 98.6 F 02/02/22 04:00 Pulse 78 02/02/22 04:00 Resp 20 H 02/02/22 04:04 BP 143/88 02/02/22 04:00 Pulse Ox 97 02/02/22 04:00 02/01/22 02/01/22 02/02/22 14:59 22:59 06:59 Intake Total 1750 / 1750 1075 / 2825 1915 / 4740 Output Total 420 / 420 1400 / 1820 2250 / 4070 Balance 1330 / 1330 -325 / 1005 -335 / 670 Weight last 48 hrs Weight 207 lb 6 oz Weight 207 lb 6 oz Physical Exam Narrative: Patient is conscious alert oriented X3 No apparent distress BMI 36 Head and neck examination PERRLA no masses no cervical lymphadenopathy no jaundice Cardiac examination audible S1-S2 no murmurs no gallops no arrhythmias Chest is clear bilateral,abscence of Rhonchi or wheezes,no surgical emphysema Abdomen nontender except for incision sites nondistended soft no organomegaly guarding or rigidity/no signs of peritonitis Fully catheter in place with clear urine Extremities no cyanosis no clubbing no edema Urinary Catheter Management: Riggins: Cath Placed During This Visit: yes Reason for Continuing Indwelling Catheter: Perioperative Use in Selected Surgeries Urinary Catheter Date of Insertion: 02/01/22 Urinary Catheter Time of Insertion: 07:15 Data : 02/02/22 04:50 02/02/22 04:50 A&P Assessment and plan (1) Status post laparoscopic sleeve gastrectomy: Assessment Status post laparoscopic sleeve gastrectomy 02/01/2022 Pllan Encourage ambulation Incentive spirometer every hour DC Riggins catheter Following an upper GI study, once this is cleared we will start the patient on post bariatric phase 1 diet Assurance and education All questions have been answered and all concerns have been addressed to patient's satisfaction. Status: Acute Attestations Medical Necessity Statement*: Patient requiring inpatient hospitalization for perioperative care. Coding Level of Care Code Acute Weatherization Specialist for Chg Fwd Diagnoses Status post laparoscopic sleeve gastrectomy Z98.84
--- NOTE | 2022-02-02 06:47 | PC.NURSE ---
Physician rounding. Verbal order to remove lockhart. 9 mL of water removed from balloon. Pt tolerated well.
--- NOTE | 2022-02-02 08:00 | FL_ITS ---
WS: [id number] Limited upper GI with Gastrografin. HISTORY: Status post gastric sleeve surgery. Fluoroscopy time: 0.7 minutes. Spot imaging number; 11. Patient swallowed the Gastrografin mixture without difficulty. Gastrografin flowed into the stomach a nd duodenum without difficulty. Very minimal edema along the gastric sleeve procedure. No extravasati on of the contrast. Patient tolerated the procedure well. FL/FL upper GI series [id number] IMPRESSION: Normal postoperative appearance of the gastric sleeve. No extravasation of Peggy rografin identified.
[2022-02-02] MEDS: famotidine 20 mg/2 mL INJ IVP ×2 (09:09→21:58)
[2022-02-02] MEDS: diatrizoate meglumine 120 mL Sol PO (09:46)
--- NOTE | 2022-02-02 11:05 | PC.CHAP ---
Pastoral Care Encounter/Spiritual Assessment Type of Contact [] Declined cafeteria director visit [] Patient/Family/Request visit [] Outpatient visit [] Follow-up visit [] Physician referral [] Code/Alert [xxxxxx] Routine visit [] Staff referral [] Actively dying [] Patient sleeping [] Family support [] [] Out of room [] Palliative care [] [] Receiving care in room [] Pre-surgical visit [] Trauma [] Long length of stay [] ICU visit [] Other: Relational/Emotional Strength [x] Patient feels connected with others/family/visitors/staff [] Distress [] Loneliness/isolation [] Abandonment Spirituality of Patient [x] Person of Radha [] Attends Mosque of their Radha [x] Believes in Prayer [] Reads Bible or Pentecostalism materials [] There are Spiritual issues to be addressed Firewood 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 Interventions [x] Prayer [x Active listening [] Non-anxious presence [] Spiritual/emotional support [] Crisis/trauma care [] Spiritual counseling [] Bereavement support [] Provided bereavement packet [] Provided Bible/devotional materials [] Provided toy/stuffed animal, coloring book to patient or family member [] Provided Communion [] Anointing/[place] [] Salvation [x] Completed spiritual assessment [] Other: Impact on Illness or Injury [] Angry [] Fearful [] Anxious [] Often cries [] Exhaustion [] Unable to work [] Unable to attend pentecostalism [] Unable to walk/stand [] Unable to read [] Unable to drive [] Unable to eat/drink [] Unable to sleep [] Unable to be with family [] Patient intubated [] Other: Summary Time spent with patient 10 min
[2022-02-02 11:40] LABS: Glucose Point of Care 108 mg/dL (70-110)
[2022-02-02] MEDS: HYDROcodone-acetaminophen 5-325 mg Tablet 1 TAB PO ×2 (16:00→22:02)
[2022-02-02] MEDS: calcium gluconate 0.9% NaCL 1 GM/50 ML PREMIX IV ×2 (16:01→16:39)
[2022-02-02] MEDS: lactated ringers 1,000 ML 50 ML IV (16:01)
--- NOTE | 2022-02-02 16:20 | P.DS_ITS ---
Discharge Providers Date of Admission: 02/01/22 09:35 Date of Discharge: February 02, 2022 Attending Provider at Admission: Scooter Reis MD Attending Provider at Discharge: Scooter Reis MD Primary Care Provider: DALIA Virk Diagnoses at Discharge Discharge Diagnosis (1) Status post laparoscopic sleeve gastrectomy: Reason for Visit Reason for Visit: Brief History: 08/18/21 This Is a pleasant 25 years old female patient with a current weight of 226 pounds and a BMI of 37.5 class II obesity.? Had tried different modalities for weight loss in the form of diet and previous administration of Contrave but was not successful Obesity related comorbidities in the form of hirsutism, chronic migraine, sciatica and anxiety Previous Bariatric surgery--- not applicable Quality of life affected in a nonpositive Psychological status--anxious She was referred to my practice for consideration of weight loss surgery, as a sustained option for obesity management. Interim history 10/20/21 Patient comes today for follow-up and she continues to struggle with her weight she did lose about 6 pounds and she has been on low calorie diet per my recommendations 12 cans/day.? Patient reports to me that she has history of diabetes.? In addition to the other medical comorbidities.in the form of hirsutism, chronic migraine, sciatica and anxiety.Also patient reports to me that she had history of bouts of acid reflux.? But she never had endoscopies done before.? Never had Upper GI study as well. Patient today provided more specific history regarding that she has been on Contrave and Metformin and she has been performing physical activity and exercise in addition that she has been on 1200-calorie diet for the past 2 months.? Also patient reports that she has been exercising and dieting even before seeing me.? Without obvious success of weight loss as she continues to have challenges with her obesity which is affecting her quality of life nonpositive weight. Patient comes today with a current weight of 219 pounds and 6 ounces and a BMI 36.5.She does continue to show interest in weight loss surgery as a sustainable option for weight management 12/01/2021 Patient comes today for follow-up and she continues to show interest in weight loss surgery.? She did undergo an upper GI study per my request that did show normal findings. Patient's current weight 222 pounds and a BMI of 36.9 continues to have associated medical comorbidities in the form of migraines, and anxiety, hirsutism, sciatica and history of GERD. Patient is very much interested in weight loss surgery as a sustainable option for her obesity and associated medical comorbidities. 01/26/2022 Patient comes today to discuss bariatric surgery in the form of laparoscopic vertical sleeve gastrectomy.? Patient was found to be psychologically an appropriate candidate for bariatric surgery.? She met the appropriate indication and based on medical necessity she would benefit from weight loss surgery. Current weight 208 pounds and a BMI of 35 with associated medical comorbidities hirsutism, chronic migraine, sciatica and anxiety. Patient recently attended the seminar for preop. Patient continued to be ambulatory without assistance and has been able to void urine without the need for Riggins catheter. She has been the bit anxious and more education was given to the patient and her mom as well as her Dad. Patient came for elective laparoscopic vertical sleeve gastrectomy for her obesity status with associated medical comorbidities. Hospital Course Hospital Course Patient undergone uneventful postoperative course. Passed the upper GI study an d tolerating p.o. intake. She has been having pain issues and it was requiring IV narcotics. The patient was switched to oral pain medication and was supposed to be going home but her level of pain was still need better control, so I elected to give the patient 1 more night and ultimately she was discharged the following day. During the hospital stay patient had stable vital signs, adequate urine output had some nausea but no vomiting and was tolerating p.o. intake. Patient met the appropriate and safe criteria for discharge home Physical Exam Narrative: Patient is conscious alert oriented X3 No apparent distress BMI 36 Head and neck examination PERRLA no masses no cervical lymphadenopathy no jaundice Cardiac examination audible S1-S2 no murmurs no gallops no arrhythmias Chest is clear bilateral,abscence of? Rhonchi or wheezes,no surgical emphysema Abdomen nontender except for incision sites nondistended soft no organomegaly guarding or rigidity/no signs of peritonitis, incisions are clean and dry and intact and skin mirian in place Extremities no cyanosis? no clubbing no edema Urinary Catheter Management: Riggins: Cath Placed During This Visit: yes Reason for Continuing Indwelling Catheter: Perioperative Use in Selected Surgeries Urinary Catheter Date of Insertion: 02/01/22 Urinary Catheter Time of Insertion: 07:15 Discharge Data Studies Completed and Pending Completed Studies During Hospitalization Category Date Time Status [place] upper GI series [id number] Routine Exams 02/02/22 08:00 Completed Pending at discharge Category Date Time Status ES surgery / GI images Routine Exams 02/01/22 06:46 Taken Basic Metabolic Panel AM LABS Lab 02/03/22 04:00 Ordered Basic Metabolic Panel AM LABS Lab 02/04/22 04:00 Ordered Hemoglobin and Hematocrit AM LABS Lab 02/03/22 04:00 Ordered Hemoglobin and Hematocrit AM LABS Lab 02/04/22 04:00 Ordered Pathology: Surgical [PTH] Routine Pth 02/01/22 09:27 Received Radiology Impressions Upper GI Series 02/02/22 08:00 IMPRESSION: Normal postoperative appearance of the gastric sleeve. No extravasation of Gastrografin identified. Laboratory Results Hgb 10.2 g/dL (11.5-15.3) L 02/02/22 04:50 Hct 31.7 % (37.0-47.0) L 02/02/22 04:50 Sodium 134 mmol/L (136-145) L 02/02/22 04:50 Potassium 4.1 mmol/L (3.5-5.1) 02/02/22 04:50 Chloride 103 mmol/L (98-107) 02/02/22 04:50 Carbon Dioxide 17 mmol/L (22-29) L 02/02/22 04:50 Anion Gap 18.1 (5-19) 02/02/22 04:50 BUN 4 mg/dL (6-20) L 02/02/22 04:50 Creatinine 0.5 mg/dL (0.5-0.9) 02/02/22 04:50 GFR Calculation 151.6 mL/min (90-130) H 02/02/22 04:50 Glucose 129 mg/dL (65-115) H 02/02/22 04:50 POC Glucose 108 mg/dL (70-110) 02/02/22 11:20 Calculated Osmolality 277 mOsm/kg (285-295) L 02/02/22 04:50 Calcium 7.9 mg/dL (8.5-10.5) L 02/02/22 04:50 Urine HCG, Qual Negative (Negative) 02/01/22 07:08 Additional Data from Hospital Stay Upper GI study Patient swallowed the Gastrografin mixture without difficulty. Gastrografin flowed into the stomach and duodenum without difficulty. Very minimal edema along the gastric sleeve procedure. No extravasation of the contrast. Patient tolerated the procedure well. FL/FL upper GI series [id number] IMPRESSION: ? Normal postoperative appearance of the gastric sleeve. No extravasation of Gastrografin identified. Procedures Performed Laparoscopic vertical sleeve gastrectomy with intraoperative EGD Specimens removed/disposition: Subtotal gastrectomy with gastric sleeve, sutures marked proximal Surgeon: Scooter Reis MD Processing Supervisor: Surgical abran Kumar and Marian Circulating nurse Ana Anesthesia: General (ANN MARIE Shukla and Prashanth Paulino) Estimated blood loss (mL): 20 IV fluids (mL): 1,600 Urine output (mL): 200 Procedure: Patient was identified in the holding area, appropriate pharmacologic DVT prophylaxis was given and preoperative IV fluid hydration, patient was then taken to the operating room where the patient was placed in supine position, intubated by anesthesia prophylactic antibiotics were given per protocol, Time- out was done verifying the patient's name/date of /planned procedure and destination after the procedure, all were in agreement.SCDs confirmed to be functioning, and beta marlo protocol was confirmed. A Riggins catheter was inserted by the circulating nurse revealing clear urine. A foot board was applied to secure the patient while the patient is placed in reversed Trendelenburg, all pressure points were padded, and the patient was appropriately secured to the table, anesthesia was asked to rotate the table back and forth to verify that the patient is appropriately secured, and that was the case. The abdomen was prepped and draped under the usual sterile technique.? A transverse incision was made with a 15 blade scalpel approximately 15 cm below the xiphoid process and 3 cm left of the midline. A 5 mm optical trocar port was placed under direct vision into the peritoneal cavity without initial evidence of injury to peritoneal structures upon entry. The peritoneal cavity was insufflated with carbon dioxide gas up to 15 mmHg pressure. A 45? angle laparoscopy was placed through the port into the peritoneal cavity there was no significant blood, fluid, or evidence of intra- abdominal injury under direct visualization, Longer trocars were then used; a 12 mm trocar port was placed in the right epigastric region and a fourth 5 mm trocar port was placed in the mid epigastric region more caudad than and medial to the previous port. A 5 mm trocar port was placed in the left lateral flank and additional 5 mm trocar was inserted midway between the left lateral flank trocar and the initial 5 mm trocar.? There after the index 5 mm trocar was switched to a 12 mm trocar under direct visualization after extending the skin incision. I lifted the omentum up to make sure there were no injuries encountered from the initial trocar insertion, the underlying transverse colon and small bowel viscera were normal. ? All trocars inserted were long arc trocars due to the thick layer of subcutaneous tissue that the patient has.Patient was then placed in the reversed Trendelenburg. Following this, the greater curvature of the stomach was freed from the omentum using the ENSEAL device.? This division included the short gastric vessels proximally.? This dissection was carried from approximately 4 cm-6 cm proximal to the pylorus and extending all the way up to the angle of Hiss. During this process the posterior aspect of the stomach was mobilized from the underlying peritoneum and the posterior aspect of the stomach was well exposed. With the greater curvature of the stomach exposed from within 4-6 cm of the pylorus and extending to the angle of Hiss, which also included the posterior stomach, a 40 [place] standard template passed under direct vision down the esophagus, stomach, and into the first part of the duodenum by the anesthesia provider and under direct guidance and visualization by me, via the laparoscopy. Using the template 40 [place] aligned along the lesser curvature of the stomach and all the way to the first part of the Duodenum, the 40 [place] Bougie was used as a template the laparoscopic vertical gastric sleeve was performed starting from a point about 5 cm from the pylorus along the greater curvature. Using the [place] Laparoscopic ERIC linear cutting stapler with [email or web address] enforcement, a series of mirian were used to transect the stomach in a vertical fashion along the left side of the template. Through the entire division of the stomach using the staplers, the template was always checked to be in good place and well aligned to the lesser curvature while dividing the stomach. This was carried all the way to the angle of Hiss. [place] 60 mm Green loads were used for the distal third of the stomach and Gold loads were used for the more proximal part of the stomach and then blue loads with reinforcement. All staplers were reinforced by Endopath. The staple line along the remaining tubularized stomach was tested for leaks and bleeding under direct vision as the 40 [place] template was exchanged (and there was no evidence of blood on the tip of the template) by a standard diagnostic EGD via the mouth by my me after I scrubbed out, insufflation was achieved and the staple line submerged under saline, meanwhile a clamp was applied distally onto the end of the tubularized stomach to allow insufflation test for leak. Th ere was no evidence of leak .There was adequate hemostasis along the staple line.EGD was taken out at this point after deflation of the tubularized stomach. I scrubbed the back in. The transected partial stomach, which included the greater curvature, was removed from the peritoneum through the first 12 mm trocar site, there was some spillage of gastric contents in the wound but that was thoroughly irrigated after the specimen was removed.? And was sent for permanent pathology. Prior to closure of the fascia.? A final look laparoscopy identified no injuries or bleeding.? Except for minor oozing along the distal staple line and 5 mm clips were applied.? And the proximal part is well Bilateral TAP (transversus abdominous plain peripheral nerve block) block using Exparel 20 mL Exparel,40 ml Normal saline,20 ml bupivacaine 0.25% 30 mL on each side injected, 20 mL injected the port sites. An interrupted #1 PDS suture on a granny needle suture passer was used to close the right epigastric and the other 12 mm trocar left of the midline fascial defects under direct visualization. The other trocars were removed under direct vision and no evidence of bleeding was identified. The pneumoperitoneum was decompressed. All skin incisions were irrigated with saline, then closed with mirian, followed by application of sterile dressings. The patient was extubated and taken to the recovery room with normal vital signs. Riggins catheter was maintained All counts of instruments, sponges and needles were completed at the end of the procedure I was present for the whole entire procedure Vitals Last Vital Signs Temp 98.3 F 02/02/22 15:39 Pulse 67 02/02/22 15:39 Resp 12 02/02/22 15:39 BP 144/89 02/02/22 15:39 Pulse Ox 96 02/02/22 15:39 Discharge Plan Discharge Patient Disposition: Home Condition: Stable Prescriptions: New hydrocodone-acetaminophen 5-325 mg tablet 1 tab PO Q6H PRN (Reason: pain) Qty: 28 0RF Transderm-Scop 1 mg over 3 days patch 3 day 1 patch transdermal Q72H Qty: 4 1RF ondansetron HCl 4 mg tablet 4 mg PO Q8H PRN (Reason: nausea and vomiting) 10 Days Qty: 30 2RF oxycodone 5 mg tablet 5 mg PO Q6H PRN (Reason: pain) Qty: 20 0RF Protonix 40 mg tablet,delayed release (DR/EC) 40 mg PO DAILY 30 Days Qty: 30 3RF Continued NuvaRing 0.12-0.015 mg/24 hr ring 1 vag ring VAGINAL .wear for 3 weeks 90 Days Qty: 3 0RF Discharge Orders: Discharge Order (Routine); Ordered 02/02/22 Ordered By: Scooter Reis Referrals: Scooter Reis MD [Physician] - 02/09/22 2:15 pm () Manpreet Alonzo FNP-C [Primary Care Provider] - 02/09/22 11:20 am (Please follow up with primary care and discuss anxiety) Discharge Diet: As Directed Discharge Activity: Limit activity as instructed Patient Instructions: Scopolamine (Absorbed through the skin) (Transderm Scop), Hydrocodone/Acetaminophen (By mouth) (Vicodin, Barton, Lortab), Oxycodone/Acetaminophen (By mouth), Ondansetron (By mouth) (Zofran, Zofran ODT, Zuplenz), Nutrition after Bariatric Surgery (DC), Opioid Safety, Post Anesthesia Care Activity Restrictions/Additional Instructions: Post discharge instructions: 1. Patient can shower after 48 hours from surgery. Do not soak in bathtub, swimming pool or hot tub for 4 weeks after surgery. 2. Leave incisions open to air, do not apply triple antibiotic ointment or medications on the incisions. 3. Up and walking as tolerated Activity 4. Do not lift more than 5 pounds first 2 weeks after surgery and not more than 25 pounds 6 to 8 weeks after surgery. Driving 5. Do not operate heavy machinery or drive while using pain medications Diet Stage 1 When do I start this stage? The day after your surgery (Day 1). You will get to start this stage after you pass the upper GI study and/or methylene blue test. How long will I be on this stage? Day 1 thru day 2 or until you are discharged from the hospital. Goals: ? Drink 4 to 6 ounces of fluid per hour. ? Aim for a total of 64 ounces of fluid daily. Add the following food/beverages to your diet: Clear broth or bouillon 100% no sugar added apple, cranberry, or grape juice. Dilute with 1 part juice and 1 part water. No citrus justice (i.e. organe juice, grapefruit juice, etc.) Limit to 8 ounces per or less per day. Tea (do not add milk) Coffee (do not add milk or creamer) Sugar-free gelatin Sugar-free popsicles Sugar-free flavored beverages (Crystal Light?, Sugar-Free Josep-Aid?, Propel?, PowerAde Zero?, Vitamin Water 10?, Fruit?0?, Sob? Lean?, etc.) Artificial sweetener of your choice Stage 2 When do I start this stage? Day 3 (or once you are discharged from the hospital) How long will I be on this stage? Day 3 thru Day 13 Goals: ? Drink 4 to 6 ounces of fluid per hour. ? Aim for a total of 64 ounces of fluid daily. ? Aim to meet protein goals with liquid protein supplements Add the following food/beverages to your diet: Protein supplements (thin, water-based supplement may be easier to digest at first while milk-based supplements may feel ``heavy?? and uncomfortable at first) Milk: 1%, skim, light soy milk, or lactose-free milk Pain control Patient was given a prescription for pain Nausea Nausea is common after surgery, take nausea medications as needed and stay on a liquid bland diet until nausea resolves. Breathing Patient was encouraged and was given incentive spirometer to use at home 10 times an hour while awake Call the office at [phone] during office hours or go the Emergency Room after hours for - ?Fever to 100.4 or greater ?Shaking chills ?Pain that increases over time ?Redness, warmth, or pus draining from incision sites ?Persistent nausea or inability to take in liquids Discharge Attestations Time Spent in Discharge Care*: greater than 30 min Quality Metrics Clinical Quality Measures [ No reported AMI, CVA or VTE this stay] Coding Level of Care Code Acute Chg FW DC note Diagnoses Status post laparoscopic sleeve gastrectomy Z98.84
[2022-02-02 18:18] LABS: Glucose Point of Care 95 mg/dL (70-110)
[2022-02-02 20:59] LABS: Glucose Point of Care 98 mg/dL (70-110)
[2022-02-02] MEDS: metoclopramide 5 mg/mL SDV 2 mL IVP (22:06)
[2022-02-03] VITALS (7 sets, daily range): BP systolic 135–146; BP diastolic 80–90; PULSE 59–86; RESP 17–18; TEMP 36.7–37.3; O2SAT 97
[2022-02-03] MEDS: ondansetron 2 mg/ML SDV 2 mL 4 MG IVP (03:28)
[2022-02-03] MEDS: HYDROmorphone 1 mg/mL INJ 1 mL IVP (03:35)
--- NOTE | 2022-02-03 04:08 | PC.NURSE ---
patient had been c/o pain 3 hours after receiving last pain meds, ambulation and cold compress utilized with no positive result, patient continue to c/o pain, @0315 morphine offered and patient refused along with patient's mother stating that morphine does not work, nurse explained current orders and which pain meds needs to be given first, second, and third, patient continue to refuse morphine. nausea and dry heaving started, zofran given and dilaudid given at 0335. re-assessment of pain @0400 and patient rated pain at ZERO
[2022-02-03 04:22] LABS: Hematocrit 34.9 % (37.0-47.0)
[2022-02-03 04:49] LABS: Anion Gap 20.1 (5-19); Blood Urea Nitrogen 5 mg/dL (6-20); Calcium 8.9 mg/dL (8.5-10.5); Carbon Dioxide 20 mmol/L (22-29); Chloride 104 mmol/L (98-107); Glomerular Filtration Rate 102.8 mL/min (90-130); Glucose 118 mg/dL (65-115); Osmolality Calculated 288 mOsm/kg (285-295); Potassium 4.1 mmol/L (3.5-5.1); Sodium 140 mmol/L (136-145)
[2022-02-03 06:46] LABS: Glucose Point of Care 94 mg/dL (70-110)
[2022-02-03] MEDS: famotidine 20 mg/2 mL INJ IVP (08:45)
[2022-02-03] MEDS: oxyCODONE 5 mg IR Tab/Cap PO (09:01)
--- NOTE | 2022-02-03 09:06 | PM.PN ---
Subjective Subjective: Elected to keep the patient 1 more night in the hospital for better pain control. Patient seems to be requiring IV narcotics. She denies being anxious. Medications: Reviewed: Yes Vitals/I&O/Wt Last Vital Signs Temp 99.1 F 02/03/22 07:43 Pulse 81 02/03/22 07:43 Resp 17 02/03/22 09:01 BP 146/90 02/03/22 07:43 Pulse Ox 97 02/03/22 07:43 02/02/22 02/03/22 02/03/22 22:59 06:59 14:59 Intake Total 350 / 1200 Output Total 1640 / 1740 880 / 2620 Balance -1290 / -540 -880 / -1420 Weight last 48 hrs Weight 207 lb 6 oz Physical Exam Narrative: Patient is conscious alert oriented X3 No apparent distress BMI 36 Head and neck examination PERRLA no masses no cervical lymphadenopathy no jaundice Cardiac examination audible S1-S2 no murmurs no gallops no arrhythmias Chest is clear bilateral,abscence of? Rhonchi or wheezes,no surgical emphysema Abdomen nontender except for incision sites nondistended soft no organomegaly guarding or rigidity/no signs of peritonitis, incisions are clean and dry and intact and skin mirian in place Extremities no cyanosis no clubbing no edema Urinary Catheter Management: Riggins: Cath Placed During This Visit: yes Reason for Continuing Indwelling Catheter: Perioperative Use in Selected Surgeries Urinary Catheter Date of Insertion: 02/01/22 Urinary Catheter Time of Insertion: 07:15 Data : 02/03/22 03:15 02/03/22 03:15 A&P Assessment and plan (1) Status post laparoscopic sleeve gastrectomy: Assessment Status post laparoscopic sleeve gastrectomy 02/01/2022 Pllan Encourage ambulation Incentive spirometer every hour We will add we will add oxycodone 5 mg p.o. IR every 6 hours as needed for pain control and hydrocodone for breakthrough pain We will monitor the patient through the day and if she continues to do well we will plan to DC home. Patient was kept 1 more night and was discharged today for better pain control Assurance and education All questions have been answered and all concerns have been addressed to patient's satisfaction. Attestations Medical Necessity Statement*: Patient requiring inpatient hospitalization passing 2 midnights for appropriate pain control Coding Level of Care Code Acute Dictating Machine Transcriber for Chg Fwd Diagnoses Status post laparoscopic sleeve gastrectomy Z98.84
== END 2022-02-03 12:46 | disposition home or self-care (01) | DRG 621 ==
LOC: MEDSURG 09:38
PROVIDERS: Anesthesiology; Admitting Provider Surgery; PCP Nurse Practitioner; Visit Provider Surgery
PROC: 0DB64Z3 Excision of Stomach, Percutaneous Endoscopic Approach, Vertical (ICD-10-PCS; CPT 43775; principal; 2022-02-01 07:00)
PROC: 0DJ08ZZ Inspection of Upper Intestinal Tract, Via Natural or Artificial Opening Endoscopic (ICD-10-PCS; CPT 43235; 2022-02-01 07:00)
DX: E66.9 Obesity, unspecified (principal); Z68.35 Body mass index [BMI] 35.0-35.9, adult; L68.0 Hirsutism; M54.30 Sciatica, unspecified side; G43.709 Chronic migraine without aura, not intractable, without status migrainosus; F41.9 Anxiety disorder, unspecified
CPT/HCPCS: 36410; 36415; 36416; 51702; 74240; 80048; 81025; 82962; 84703; 85014; 85018; 88309; 96372; C9113; C9290; J0610; J0690; J1100; J1170; J1200; J1644; J1885; J2250; J2270; J2405; J2704; J2710; J2765; J3010; J3490; J7030; Q9963

== ENCOUNTER 2022-02-12 05:10 | Inpatient (IN) | payer OTHER, SELFPAY ==
[2022-02-12] VITALS (24 sets, daily range): BP systolic 113–180; BP diastolic 82–116; PULSE 86–122; RESP 16–24; TEMP 36.3–36.8; O2SAT 93–98; BMI 33.3
--- NOTE | 2022-02-12 05:30 | CTR_ITS ---
PROCEDURE INFORMATION: Exam: CT Abdomen And Pelvis With Contrast Exam date and time: 02/12/2022 6:17 AM Age: 26 years old Clinical indication: Nausea and vomiting; Abdominal pain; Generalized; Prior surgery; Surgery date: <1 month; Surgery type: Gastric sleeve on 02/01/2022; Patient HX: C/O diffuse abd pain with n/v x 2 days. ; Additional info: Abdominal pain vomiting postgastrectomy TECHNIQUE: Imaging protocol: Computed tomography of the abdomen and pelvis with contrast. Radiation optimization: All CT scans at this facility use at least one of these dose optimization techniques: automated exposure control; mA and/or kV adjustment per patient size (includes targeted exams where dose is matched to clinical indication); or iterative reconstruction. Contrast material: OMNI 300; Contrast volume: 90 ml; Contrast route: INTRAVENOUS (IV); COMPARISON: CT Abdomen/Pelvis Renal [id number] 07/21/2017 12:55 PM RADIATION DOSE METRICS: Total DLP (mGy-cm): 1822.12 FINDINGS: Lungs: The lung bases are clear. Liver: Essentially unremarkable, except for portal vein findings discussed below. Gallbladder and bile ducts: No visible gallstones or other definite gallbladder abnormality by CT. Ultrasound would be more sensitive for detecting gallstones, if clinically needed. No biliary tree dilation. Pancreas: Slight enlargement of the pancreatic head, possibly with very mild increased attenuation/inflammation in the adjacent fat. These findings are subtle, but could represent evidence for mild acute pancreatitis. Please correlate with clinical and laboratory evaluation. No significant peripancreatic and retroperitoneal fluid. No pseudocyst. No pancreatic duct dilation. Spleen: Unremarkable. Adrenal glands: Unremarkable. Kidneys and ureters: Possible small left intrarenal calculus. No hydronephrosis of either kidney. No visible ureteral calculus. No perinephric fluid. The kidneys enhance homogeneously. Stomach and bowel: Evidence for recent gastric sleeve surgery. No adjacent extraluminal gas or fluid collection. Possibility of somewhat thickened mucosa/wall in the distal stomach and proximal duodenum. This is a nonspecific appearance, and could be transient on CT, but could also represent evidence for gastritis/duodenitis or peptic ulcer disease. Please correlate clinically. No significant bowel distention. There are no CT findings to strongly suggest diverticulitis. Appendix: The appendix is visualized and appears normal. Intraperitoneal space: No free intraperitoneal air, or generalized ascites. Vasculature: There is apparent thrombosis of the main portal vein. The main portal vein is unopacified with contrast, and the apparent thrombus extends into the intrahepatic portal veins, right greater than left. Thrombus is also seen extending inferiorly into the upper branches of the superior mesenteric vein. Probably some mild associated mesenteric edema. The splenic vein appears patent. No evidence for abdominal aortic aneurysm. Lymph nodes: No retroperitoneal adenopathy. Urinary bladder: Unremarkable as visualized. Reproductive: Very small amount of cul-de-sac fluid. No definite abnormal ovarian/adnexal cyst or mass by CT. Bones/joints: No significant acute finding. Soft tissues: Postsurgical changes are seen in the abdominal wall. Very small umbilical hernia, containing only fat, unchanged. CT/CT abdomen pelvis w con* [id number] IMPRESSION: 1. Evidence for portal vein thrombosis, with extension into the liver, and also into the upper branches of the superior mesenteric vein. See additional details/discussion above. 2. Suspect possible mucosal/wall thickening in the distal stomach and proximal duodenum, see above discussion. 3. Possibility of mild acute pancreatitis, see above discussion. 4. No free air or significant bowel distention. No evidence for bowel obstruction. 5. Normal appendix. 6. Possible small left intrarenal calculus. No hydronephrosis or visible ureteral calculus. 7. Very small amount of cul-de-sac fluid. No definite abnormal ovarian/adnexal cyst or mass by CT. 8. Other findings discussed above.
--- NOTE | 2022-02-12 05:33 | W.ED.NAVMDI ---
Documented by User: Zay Hatfield DO 02/12/22 18:13 HPI - Nausea/Vomiting/Diarrhea General: Chief complaint: Nausea/Vomiting/Diarrhea Stated complaint: N/V Time Seen by Provider: 02/12/22 05:25 Source: patient History of Present Illness: 26-year-old female who is 11 days post sleeve gastrectomy. He states that she ate food that she was not supposed to yesterday, refried beans, and began to vomit. She has had abdominal pain and vomiting since that time. Multiple episodes of vomiting. No coffee-ground emesis or clots. No diarrhea. No fever. Pain is located in the epigastrium and left upper quadrant. She has not been able to hold down her pain medication. MD elicited complaint: nausea, vomiting and abdominal pain Pertinent past history: abdominal surgery Onset (ago): hour(s) Description of vomiting: food contents and watery Associated nausea: Yes Associated abdominal pain: Yes Location of pain: Epigastric and LUQ Pain consistency: constant Severity: moderate Quality: stabbing and aching Exacerbating factors: vomiting Relieving factors: none Associated symtoms: Reports nausea; Denies chest pain, cough, dysuria, fevers/chills, headache(s) or short of breath Review of Systems ENMT: Denies: bleeding gums Card: Denies: chest pain Resp: Denies: dyspnea, productive cough or non-productive cough GI: Reports: abdominal pain, nausea and vomiting; Denies: diarrhea : Denies: dysuria Skin/Breast: Denies: rash Neuro: Denies: headache(s) PFS ED PFSH: Medical History Anxiety Chronic migraine Encounter for surveillance of nuvaring Obesity (BMI 30-39.9) Surgical History History of tonsillectomy and adenoidectomy age 5 Status post laparoscopic sleeve gastrectomy Family History Other Cancer Diabetes Heart disease Hypertension Social History Smoking and tobacco status: never smoked Second hand smoke exposure: No Smoking risk assessment/counseling performed?: No Alcohol intake: current Alcohol intake frequency: holidays/special occasions only Desire information about alcohol rehabilitation?: No Counseling given: No Desire information about substance/drug rehabilitation?: No Counseling given: No Adopted: No Caregiver/support person: No Lives independently: Yes Household members: significant other Housing: House Marital status: Single Number of children: 0 service: No Current occupational status: employed Current [place]: [employer] [place] of recent travel: No Sexually active: Yes Current gender identity: Female Physical Exam Const: GENERAL APPEARANCE: cooperative; not comfortable HENMT: COMMON NORMALS: normocephalic, atraumatic and Normal external nose present HEAD & SCALP: normocephalic and atraumatic FACE & SINUS: normal facial exam NOSE: Normal external nose present and Normal nares present Eye: COMMON NORMALS: Equal, round and reactive pupils present and EOMs intact bilaterally PUPIL: Yes Equal, round and reactive pupils present Neck/C-Spine: GENERAL: Yes trachea midline Chest: CHEST: Yes Symmetrical chest wall rise Resp: COMMON NORMALS: normal respiratory effort, No use of accessory muscles and clear to auscultation bilaterally AUSCULTATION: clear to auscultation bilaterally Cardio: COMMON NORMALS: regular rate and regular rhythm RATE: regular rate RHYTHM: regular rhythm GI: COMMON NORMALS: Normal to inspection, nondistended, normoactive bowel sounds present PALPATION: Yes Tenderness to palpation present (GI) Details: LUQ : COMMON NORMALS: Yes no CVA tenderness BLADDER/KIDNEY EXAM: Yes no CVA tenderness Back/Pelvis: COMMON NORMALS: no CVA tenderness Extremity: COMMON NORMALS: no pedal edema Neuro: CHARLY COMA SCALE: document GCS findings [place] coma scale eye opening: Spontaneous Charly coma scale verbal response: Orientated [place] coma scale motor response: Obey commands Charly coma scale total score: 15 Course Vital Signs: Vital signs: Vital Signs Temperature 97.4 F L 02/12/22 05:15 Pulse Rate 115 H 02/12/22 15:30 Respiratory Rate 24 H 02/12/22 16:33 Blood Pressure 148/107 02/12/22 15:30 Pulse Oximetry 96 02/12/22 16:33 MDM - Nausea/Vomiting/Diarrhea Medical Decision Making Patient is pending laboratory and imaging results. She will be checked out at shift change Lab Data : 02/12/22 05:48 02/12/22 05:48 Radiology Impressions Abdomen/Pelvis CT 02/12/22 05:30 IMPRESSION: 1. Evidence for portal vein thrombosis, with extension into the liver, and also into the upper branches of the superior mesenteric vein. See additional details/discussion above. 2. Suspect possible mucosal/wall thickening in the distal stomach and proximal duodenum, see above discussion. 3. Possibility of mild acute pancreatitis, see above discussion. 4. No free air or significant bowel distention. No evidence for bowel obstruction. 5. Normal appendix. 6. Possible small left intrarenal calculus. No hydronephrosis or visible ureteral calculus. 7. Very small amount of cul-de-sac fluid. No definite abnormal ovarian/adnexal cyst or mass by CT. 8. Other findings discussed above. ADDENDUM: 02/12/22 0737 This report contains findings that may be critical to patient care. I discussed the critical exam findings by phone with Dr Villanueva, at 7:31 AM CDT, 02/12/2022. The findings were acknowledged and understood. They were also instructed to review the provided written report for complete details, and description of other non-critical findings. ADDENDUM: 02/12/22 1004 Request for additional radiological consultation by Dr. Espinosa. Findings were discussed with Dr. Espinosa at 02/12/2022 10:01 AM CDT. Laboratory Results WBC 11.5 10^3/uL (4.0-10.0) H 02/12/22 05:48 RBC 4.60 10^6/uL (4.1-5.3) 02/12/22 05:48 Hgb 12.4 g/dL (11.5-15.3) 02/12/22 05:48 Hct 37.8 % (37.0-47.0) 02/12/22 05:48 MCV 82.2 fl (81-99) 02/12/22 05:48 MCH 27.0 pg (28.0-34.0) L 02/12/22 05:48 MCHC 32.8 g/dL (30.0-36.0) 02/12/22 05:48 RDW 12.9 % (12.1-15.1) 02/12/22 05:48 Plt Count 265 10^3/cmm (130-400) 02/12/22 05:48 MPV 11.1 fL (7.4-10.4) H 02/12/22 05:48 Neut % (Auto) 84.7 % 02/12/22 05:48 Lymph % (Auto) 8.4 % 02/12/22 05:48 Carver % (Auto) 6.3 % 02/12/22 05:48 Eos % (Auto) 0.0 % 02/12/22 05:48 Baso % (Auto) 0.3 % 02/12/22 05:48 Neut # (Auto) 9.72 10^3/uL (1.8-7.7) H 02/12/22 05:48 Lymph # (Auto) 1.0 10^3/uL (0.8-4.8) 02/12/22 05:48 Carver # (Auto) 0.7 10^3/uL (0.2-0.9) 02/12/22 05:48 Eos # (Auto) 0.0 10^3/uL (0.0-0.8) 02/12/22 05:48 Baso # (Auto) 0.0 10^3/uL (0.0-0.1) 02/12/22 05:48 Nucleated RBC % (auto) 0 % 02/12/22 05:48 Nucleated RBCs # 0.0 /100WBC 02/12/22 05:48 PT 15.40 SECONDS (12.1-14.9) H 02/12/22 14:32 INR 1.19 (0.8-1.2) 02/12/22 14:32 APTT 149.7 SECONDS (23.9-36.7) H D 02/12/22 14:32 Sodium 137 mmol/L (136-145) 02/12/22 05:48 Potassium 3.7 mmol/L (3.5-5.1) 02/12/22 05:48 Chloride 98 mmol/L (98-107) 02/12/22 05:48 Carbon Dioxide 15 mmol/L (22-29) L 02/12/22 05:48 Anion Gap 27.7 (5-19) H 02/12/22 05:48 BUN 8 mg/dL (6-20) 02/12/22 05:48 Creatinine 0.7 mg/dL (0.5-0.9) 02/12/22 05:48 GFR Calculation 102.8 mL/min (90-130) 02/12/22 05:48 Glucose 152 mg/dL (65-115) H 02/12/22 05:48 Calculated Osmolality 285 mOsm/kg (285-295) 02/12/22 05:48 Lactate 0.7 mmol/L (0.5-2.2) 02/12/22 09:33 Calcium 9.7 mg/dL (8.5-10.5) 02/12/22 05:48 Total Bilirubin 0.4 mg/dL (0.15-1.2) 02/12/22 05:48 AST 18 U/L (0-32) 02/12/22 05:48 ALT 22 U/L (0-33) 02/12/22 05:48 Alkaline Phosphatase 91 IU/L (35-105) 02/12/22 05:48 C-Reactive Protein 172.5 mg/L (0.0-4.9) H 02/12/22 05:48 Total Protein 8.3 g/dL (6.6-8.7) 02/12/22 05:48 Albumin 4.4 g/dL (3.5-5.2) 02/12/22 05:48 Globulin 3.9 g/dL (1.3-4.6) 02/12/22 05:48 Lipase 60 U/L (13-60) 02/12/22 05:48 HCG, Qual Negative (Negative) 02/12/22 09:33 Urine Color Yellow (Yellow) 02/12/22 07:25 Urine Appearance Clear (CLEAR) 02/12/22 07:25 Urine pH 5 (5-7) 02/12/22 07:25 Ur Specific [place] 1.015 (1.005-1.030) 02/12/22 07:25 Urine Protein 1+ (Negative) H 02/12/22 07:25 Urine Glucose (UA) Norm (Normal) 02/12/22 07:25 Urine Ketones 3+ (Negative) H 02/12/22 07:25 Urine Blood 3+ (Negative) H 02/12/22 07:25 Urine Nitrate Negative (Negative) 02/12/22 07:25 Urine Bilirubin 1+ (Negative) H 02/12/22 07:25 Urine Urobilinogen Norm mg/dL (Negative) 02/12/22 07:25 Ur Leukocyte Esterase Negative (Negative) 02/12/22 07:25 Urine RBC 5-10 /hpf (0-2) H 02/12/22 07:25 Urine WBC Rare /hpf (0-5) 02/12/22 07:25 Ur Squamous Epith Cells 10-15 /hpf (0-5) H 02/12/22 07:25 Amorphous Sediment Not Reportable 02/12/22 07:25 Urine Bacteria Trace /hpf (NONE) 02/12/22 07:25 Urine Mucus Trace /hpf 02/12/22 07:25 Discharge Plan Discharge Patient Disposition: Admitted As Inpatient Clinical Impression: Portal vein thrombosis, Superior mesenteric vein thrombosis Condition: Stable Coding Level of Care Code ED Embossing Clerk for Chg Fwd Exam Comprehensive Documented by User: Nikita Villanueva MD 02/12/22 08:31 HPI - Nausea/Vomiting/Diarrhea General: Chief complaint: Nausea/Vomiting/Diarrhea Stated complaint: N/V Time Seen by Provider: 02/12/22 05:25 [facility] ED PFSH: Medical History Anxiety Chronic migraine Encounter for surveillance of nuvaring Obesity (BMI 30-39.9) Surgical History History of tonsillectomy and adenoidectomy age 5 Status post laparoscopic sleeve gastrectomy Family History Other Cancer Diabetes Heart disease Hypertension Social History Smoking and tobacco status: never smoked Second hand smoke exposure: No Smoking risk assessment/counseling performed?: No Alcohol intake: current Alcohol intake frequency: holidays/special occasions only Desire information about alcohol rehabilitation?: No Counseling given: No Desire information about substance/drug rehabilitation?: No Counseling given: No Adopted: No Caregiver/support person: No Lives independently: Yes Household members: significant other Housing: House Marital status: Single Number of children: 0 service: No Current occupational status: employed Current [place]: [employer] [place] History of recent travel: No Sexually active: Yes Current gender identity: Female Physical Exam Neuro: CHARLY COMA SCALE: document GCS findings Charly coma scale total score: 15 Course Reevaluation(s): Reevaluation #1: Signout from Dr. Hatfield. Patient here with abdominal pain and vomiting. She is about 10 days postop from gastric sleeve surgery. We are awaiting lab and CT results. On reassessment I talked to the patient about the CT results. We will start her on heparin bolus and drip thrombosis dosing protocol. I discussed the case with her surgeon who will admit, with consult from hospitalist service. Vital Signs: Vital signs: Vital Signs Temperature 97.4 F L 02/12/22 05:15 Pulse Rate 115 H 02/12/22 15:30 Respiratory Rate 24 H 02/12/22 16:33 Blood Pressure 148/107 02/12/22 15:30 Pulse Oximetry 96 02/12/22 16:33 MDM - Nausea/Vomiting/Diarrhea Lab Data : 02/12/22 05:48 02/12/22 05:48 Radiology Impressions Abdomen/Pelvis CT 02/12/22 05:30 IMPRESSION: 1. Evidence for portal vein thrombosis, with extension into the liver, and also into the upper branches of the superior mesenteric vein. See additional details/discussion above. 2. Suspect possible mucosal/wall thickening in the distal stomach and proximal duodenum, see above discussion. 3. Possibility of mild acute pancreatitis, see above discussion. 4. No free air or significant bowel distention. No evidence for bowel obstruction. 5. Normal appendix. 6. Possible small left intrarenal calculus. No hydronephrosis or visible ureteral calculus. 7. Very small amount of cul-de-sac fluid. No definite abnormal ovarian/adnexal cyst or mass by CT. 8. Other findings discussed above. ADDENDUM: 02/12/22 0737 This report contains findings that may be critical to patient care. I discussed the critical exam findings by phone with Dr Villanueva, at 7:31 AM CDT, 02/12/2022. The findings were acknowledged and understood. They were also instructed to review the provided written report for complete details, and description of other non-critical findings. ADDENDUM: 02/12/22 1004 Request for additional radiological consultation by Dr. Espinosa. Findings were discussed with Dr. Espinosa at 02/12/2022 10:01 AM CDT. Laboratory Results WBC 11.5 10^3/uL (4.0-10.0) H 02/12/22 05:48 RBC 4.60 10^6/uL (4.1-5.3) 02/12/22 05:48 Hgb 12.4 g/dL (11.5-15.3) 02/12/22 05:48 Hct 37.8 % (37.0-47.0) 02/12/22 05:48 MCV 82.2 fl (81-99) 02/12/22 05:48 MCH 27.0 pg (28.0-34.0) L 02/12/22 05:48 MCHC 32.8 g/dL (30.0-36.0) 02/12/22 05:48 RDW 12.9 % (12.1-15.1) 02/12/22 05:48 Plt Count 265 10^3/cmm (130-400) 02/12/22 05:48 MPV 11.1 fL (7.4-10.4) H 02/12/22 05:48 Neut % (Auto) 84.7 % 02/12/22 05:48 Lymph % (Auto) 8.4 % 02/12/22 05:48 Carver % (Auto) 6.3 % 02/12/22 05:48 Eos % (Auto) 0.0 % 02/12/22 05:48 Baso % (Auto) 0.3 % 02/12/22 05:48 Neut # (Auto) 9.72 10^3/uL (1.8-7.7) H 02/12/22 05:48 Lymph # (Auto) 1.0 10^3/uL (0.8-4.8) 02/12/22 05:48 Carver # (Auto) 0.7 10^3/uL (0.2-0.9) 02/12/22 05:48 Eos # (Auto) 0.0 10^3/uL (0.0-0.8) 02/12/22 05:48 Baso # (Auto) 0.0 10^3/uL (0.0-0.1) 02/12/22 05:48 Nucleated RBC % (auto) 0 % 02/12/22 05:48 Nucleated RBCs # 0.0 /100WBC 02/12/22 05:48 PT 15.40 SECONDS (12.1-14.9) H 02/12/22 14:32 INR 1.19 (0.8-1.2) 02/12/22 14:32 APTT 149.7 SECONDS (23.9-36.7) H D 02/12/22 14:32 Sodium 137 mmol/L (136-145) 02/12/22 05:48 Potassium 3.7 mmol/L (3.5-5.1) 02/12/22 05:48 Chloride 98 mmol/L (98-107) 02/12/22 05:48 Carbon Dioxide 15 mmol/L (22-29) L 02/12/22 05:48 Anion Gap 27.7 (5-19) H 02/12/22 05:48 BUN 8 mg/dL (6-20) 02/12/22 05:48 Creatinine 0.7 mg/dL (0.5-0.9) 02/12/22 05:48 GFR Calculation 102.8 mL/min (90-130) 02/12/22 05:48 Glucose 152 mg/dL (65-115) H 02/12/22 05:48 Calculated Osmolality 285 mOsm/kg (285-295) 02/12/22 05:48 Lactate 0.7 mmol/L (0.5-2.2) 02/12/22 09:33 Calcium 9.7 mg/dL (8.5-10.5) 02/12/22 05:48 Total Bilirubin 0.4 mg/dL (0.15-1.2) 02/12/22 05:48 AST 18 U/L (0-32) 02/12/22 05:48 ALT 22 U/L (0-33) 02/12/22 05:48 Alkaline Phosphatase 91 IU/L (35-105) 02/12/22 05:48 C-Reactive Protein 172.5 mg/L (0.0-4.9) H 02/12/22 05:48 Total Protein 8.3 g/dL (6.6-8.7) 02/12/22 05:48 Albumin 4.4 g/dL (3.5-5.2) 02/12/22 05:48 Globulin 3.9 g/dL (1.3-4.6) 02/12/22 05:48 Lipase 60 U/L (13-60) 02/12/22 05:48 HCG, Qual Negative (Negative) 02/12/22 09:33 Urine Color Yellow (Yellow) 02/12/22 07:25 Urine Appearance Clear (CLEAR) 02/12/22 07:25 Urine pH 5 (5-7) 02/12/22 07:25 Ur Specific [place] 1.015 (1.005-1.030) 02/12/22 07:25 Urine Protein 1+ (Negative) H 02/12/22 07:25 Urine Glucose (UA) Norm (Normal) 02/12/22 07:25 Urine Ketones 3+ (Negative) H 02/12/22 07:25 Urine Blood 3+ (Negative) H 02/12/22 07:25 Urine Nitrate Negative (Negative) 02/12/22 07:25 Urine Bilirubin 1+ (Negative) H 02/12/22 07:25 Urine Urobilinogen Norm mg/dL (Negative) 02/12/22 07:25 Ur Leukocyte Esterase Negative (Negative) 02/12/22 07:25 Urine RBC 5-10 /hpf (0-2) H 02/12/22 07:25 Urine WBC Rare /hpf (0-5) 02/12/22 07:25 Ur Squamous Epith Cells 10-15 /hpf (0-5) H 02/12/22 07:25 Amorphous Sediment Not Reportable 02/12/22 07:25 Urine Bacteria Trace /hpf (NONE) 02/12/22 07:25 Urine Mucus Trace /hpf 02/12/22 07:25 Discharge Plan Discharge Patient Disposition: Admitted As Inpatient Clinical Impression: Portal vein thrombosis, Superior mesenteric vein thrombosis Condition: Stable Coding Level of Care Code ED Embossing Clerk for Angelica Fwd Exam Comprehensive
[2022-02-12] MEDS: ondansetron 2 mg/ML SDV 2 mL 8 MG IVP (05:51)
[2022-02-12] MEDS: sodium chloride 0.9% 1,000 ML 999 ML IV (05:51)
[2022-02-12] MEDS: HYDROmorphone 1 mg/mL INJ 1 mL IVP ×6 (05:52→23:33)
[2022-02-12 06:02] LABS: Basophils % 0.3 %; Hematocrit 37.8 % (37.0-47.0); Hemoglobin 12.4 g/dL (11.5-15.3); Lymphocytes % 8.4 %; Mean Corpuscular HGB Conc 32.8 g/dL (30.0-36.0); Mean Corpuscular Volume 82.2 fl (81-99); Mean Platelet Volume 11.1 fL (7.4-10.4); Monocytes # 0.7 10^3/uL (0.2-0.9); Monocytes % 6.3 %; Neutrophils # 9.72 10^3/uL (1.8-7.7); Neutrophils % 84.7 %; Nucleated Red Blood Cells % 0 %; Platelet Count 265 10^3/cmm (130-400); Red Cell Distribution Width 12.9 % (12.1-15.1); White Blood Count 11.5 10^3/uL (4.0-10.0)
[2022-02-12] MEDS: iohexol 300 mg/mL 100 mL Btl IV (06:17)
[2022-02-12 06:19] LABS: Alanine Aminotransferase 22 U/L (0-33); Albumin Level 4.4 g/dL (3.5-5.2); Alkaline Phosphatase 91 IU/L (35-105); Anion Gap 27.7 (5-19); Aspartate Amino Transferase 18 U/L (0-32); Blood Urea Nitrogen 8 mg/dL (6-20); C Reactive Protein 172.5 mg/L (0.0-4.9); Calcium 9.7 mg/dL (8.5-10.5); Carbon Dioxide 15 mmol/L (22-29); Chloride 98 mmol/L (98-107); Globulin 3.9 g/dL (1.3-4.6); Glomerular Filtration Rate 102.8 mL/min (90-130); Glucose 152 mg/dL (65-115); Lipase 60 U/L (13-60); Osmolality Calculated 285 mOsm/kg (285-295); Potassium 3.7 mmol/L (3.5-5.1); Sodium 137 mmol/L (136-145); Total Bilirubin 0.4 mg/dL (0.15-1.2); Total Protein 8.3 g/dL (6.6-8.7)
[2022-02-12 08:00] LABS: Glucose Urine UA Norm (Normal); Protein Urine 1+ (Negative); Specific Gravity, Urine 1.015 (1.005-1.030); Urine Appearance Clear (CLEAR); Urine Color Yellow (Yellow); pH Urine 5 (5-7)
[2022-02-12 08:01] LABS: Add Urine Microscopic? YES; Bilirubin Urine 1+ (Negative); Blood Urine 3+ (Negative); Ketones Urine 3+ (Negative); Leukocyte Esterase Urine Negative (Negative); Nitrate Urine Negative (Negative); Urobilinogen Urine Norm (Negative)
--- NOTE | 2022-02-12 08:02 | PM.CONSULT ---
Providers/Reason For Consult Consulting Physician/Specialty*: Scooter Reis MD Reason for Consult*: Portal venous thrombosis status post laparoscopic vertical sleeve gastrectomy Requesting Physician: Dr. Villanueva Attending Physician: Scooter Reis MD Primary Care Provider: ANNA Virk-Mellissa History of Present Illness History of Present Illness Ms. Luke Cook is a pleasant 26 year old female undergone uneventful laparoscopic vertical sleeve gastrectomy by me on 02/01/2022. Patient overall hospital course was uneventful except for requirement of additional pain medication at discharge to help her with pain control. Particularly at the incision sites. Patient has been tolerating p.o. intake while she was in the hospital and passing gas and she has been on pharmacologic DVT prophylaxis. Was discharged home on 02/03/2022 and has been followed at the bariatric surgery office on 02/09/2022 and continued to tolerate p.o. intake and stay compliant with her bariatric vitamins as well as appropriate hydration, she did struggle some with her protein intake and yesterday I did receive a phone call from her in the evening saying that she had fried beans and she has been vomiting ever since, were instructed the patient at that point to go back to the post bariatric phase 1 diet. As it got worse she presented to the ER with vague diffuse abdominal pain associated with nausea and vomiting with no evidence of hematemesis. And a CT scan of the abdomen pelvis was done with contrast and that did show; 1. Evidence for portal vein thrombosis, with extension into the liver, and also into the upper branches of the superior mesenteric vein. See additional details/discussion above. 2. Suspect possible mucosal/wall thickening in the distal stomach and proximal duodenum, see above discussion. 3. Possibility of mild acute pancreatitis, see above discussion. 4. No free air or significant bowel distention. No evidence for bowel obstruction. 5. Normal appendix. 6. Possible small left intrarenal calculus. No hydronephrosis or visible ureteral calculus. 7. Very small amount of cul-de-sac fluid. No definite abnormal ovarian/adnexal cyst or mass by CT. 8. Other findings discussed above. Dr. Villanueva called me and I came to the ER right away to evaluate the patient. Patient was seen and evaluated in ER room #13. Resting with stable vital signs. Patient reports no history of previous DVT and no previous procedures except for tonsillectomy and as stated on the prior H&P and clinic notes prior to her bariatric surgery. She does report that her dad had history of DVTs in the past. But the patient herself never had any blood clot issues never been evaluated by hematology service. As there was no indication for that. Patient reports that she had a bowel movement yesterday and she is passing gas. Review of Systems General: Reports: 10 or more systems reviewed and unremarkable except in HPI and below Medications/Allergies Home Medications Medication Instructions Recorded Confirmed Last Taken Type hydrocodone 5 mg-acetaminophen 325 1 tab PO Q6H PRN #28 tab 02/02/22 02/10/22 Unknown Rx mg tablet ondansetron HCl 4 mg tablet 4 mg PO Q8H PRN 10 Days #30 tab 02/02/22 02/10/22 Unknown Rx scopolamine base 1 mg over 3 days 1 patch TRANSDERMAL Q72H #4 ea 02/02/22 02/10/22 Unknown Rx transdermal patch (Transderm-Scop 1.5 mg transdermal patch () oxycodone 5 mg tablet 5 mg PO Q6H PRN #20 tab 02/03/22 02/10/22 Unknown Rx pantoprazole 40 mg tablet,delayed 40 mg PO DAILY 30 Days #30 tab 02/03/22 02/10/22 Unknown Rx release (Protonix) etonogestrel 0.12 mg-ethinyl 1 vag ring VAGINAL .wear for 3 02/09/22 02/10/22 Unknown Rx estradiol 0.015 mg/24 hr vaginal weeks 90 Days #3 ea ring (NuvaRing) Allergies Allergy/AdvReac Type Severity Reaction Status Date / Time No Known Allergies Allergy Verified 02/10/22 16:51 PFSH Acute PFSH: Medical History Anxiety Chronic migraine Encounter for surveillance of nuvaring Obesity (BMI 30-39.9) Surgical History History of tonsillectomy and adenoidectomy age 5 Status post laparoscopic sleeve gastrectomy Family History Other Cancer Diabetes Heart disease Hypertension Social History Smoking and tobacco status: never smoked Second hand smoke exposure: No Smoking risk assessment/counseling performed?: No Alcohol intake: current Alcohol intake frequency: holidays/special occasions only Desire information about alcohol rehabilitation?: No Counseling given: No Desire information about substance/drug rehabilitation?: No Counseling given: No Adopted: No Caregiver/support person: No Lives independently: Yes Household members: significant other Housing: House Marital status: Single Number of children: 0 service: No Current occupational status: employed Current occupation: [employer] – [place] History of recent travel: No Sexually active: Yes Current gender identity: Female Vitals/I&O/Wt Last Vital Signs Temp 97.4 F L 02/12/22 05:15 Pulse 86 02/12/22 06:45 Resp 16 02/12/22 06:45 BP 159/93 02/12/22 06:45 Pulse Ox 96 02/12/22 06:45 02/11/22 02/12/22 02/12/22 22:59 06:59 14:59 Intake Total 1000 / 1000 Balance 1000 / 1000 Weight last 48 hrs Weight 194 lb Physical Exam Narrative: Patient is conscious alert oriented X3 No apparent distress BMI 33.3 Head and neck examination PERRLA no masses no cervical lymphadenopathy no jaundice Cardiac examination audible S1-S2 no murmurs no gallops no arrhythmias Chest is clear bilateral,abscence of Rhonchi or wheezes,no surgical emphysema Abdomen mildly and diffusely tender but nondistended soft no organomegaly guarding or rigidity/no signs of peritonitis Bowel sounds are positive Extremities no cyanosis no clubbing no edema Data : 02/12/22 05:48 02/12/22 05:48 A&P Assessment and plan (1) Portal vein thrombosis: After thorough history physical examination and reviewing the chart and images with my personal interpretation, there is no evidence of pneumatosis or free air. As I did discuss with the patient that portal vein thrombosis status post laparoscopic vertical sleeve gastrectomy is a rare complication and we will plan on the followin-IV fluid resuscitation 2-we will start the patient on heparin drip and will start her on a bolus of IV heparin with coordination of management with the ER physician 3-I did discuss the case over the phone with hepatobiliary surgery at [facility] flight operations engineer and Dr. Fu whom she ecommended IV fluid resuscitation using fractionated or unfractionated anticoagulation. Nothing would have been done differently if the patient to be transferred. 4. We will consult hospitalist to manage anticoagulation 5. Repeated physical exam 6. N.p.o. for 7. Pain control 8. Repeat labs in the morning 9. Strict I's and O's 10. Cardiac monitoring Assurance and education All questions have been answered and all concerns have been addressed to patient's satisfaction. 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
[2022-02-12 08:03] LABS: Bacteria Urine TRACE /hpf; Mucus Urine TRACE /hpf; WBC Urine RARE /hpf (0-5)
[2022-02-12 08:04] LABS: Add Urine Culture? No
[2022-02-12 08:43] LABS: INR 1.16 (0.8-1.2)
--- NOTE | 2022-02-12 08:45 | PM.CONSULT ---
Providers/Reason For Consult Consulting Physician/Specialty*: Internal Medicine Reason for Consult*: Management of anticoagulation Requesting Physician: Dr Reis Attending Physician: Dr Reis Primary Care Provider: DALIA Virk History of Present Illness History of Present Illness Luke Cook is a 26 year old female with a past medical history significant for anxiety, migraines, and obesity status post recent laproscopic vertical sleeve who presents to the emergency department complaining of severe pain, nausea, and emesis. Patient underwent laproscopic vertical sleeve on 02/01 and discharged on 02/03 with post-op course reportedly unremarkable. She reports she was doing fairly well at home until yesterday when she fried beans followed by nausea, recurrent emesis, and severe abdominal pains. She reports she has been unable to hold any PO intake down since that time. She reports the abdominal pain is currently 8 out of 10. Reports IV hydromorphone given in the ED helped the pain some. Endorses associated symptoms of dry mouth. Denies fevers, chills, chest pain, diarrhea, or constipation. In the ED, CT imaging was most concerning for portal vein thrombosis with extension into the liver and upper branches of the superior mesenteric vein. She was evaluated by her surgeon Dr. Reis and started on heparin drip. Patient denies known history of prior VTE. She is on a ethinylestradiol/etonogesterl ring. She reports her father had a blood clot but is unsure if provoked or unprovoked. Also unsure age of onset. Review of Systems Narrative: A complete review of systems was obtained and is negative except as stated in HPI. Medications/Allergies Home Medications Medication Instructions Recorded Confirmed Last Taken Type hydrocodone 5 mg-acetaminophen 325 1 tab PO Q6H PRN #28 tab 02/02/22 02/10/22 Unknown Rx mg tablet ondansetron HCl 4 mg tablet 4 mg PO Q8H PRN 10 Days #30 tab 02/02/22 02/10/22 Unknown Rx scopolamine base 1 mg over 3 days 1 patch TRANSDERMAL Q72H #4 ea 02/02/22 02/10/22 Unknown Rx transdermal patch (Transderm-Scop 1.5 mg transdermal patch () oxycodone 5 mg tablet 5 mg PO Q6H PRN #20 tab 02/03/22 02/10/22 Unknown Rx pantoprazole 40 mg tablet,delayed 40 mg PO DAILY 30 Days #30 tab 02/03/22 02/10/22 Unknown Rx release (Protonix) etonogestrel 0.12 mg-ethinyl 1 vag ring VAGINAL .wear for 3 02/09/22 02/10/22 Unknown Rx estradiol 0.015 mg/24 hr vaginal weeks 90 Days #3 ea ring (NuvaRing) Allergies Allergy/AdvReac Type Severity Reaction Status Date / Time No Known Allergies Allergy Verified 02/10/22 16:51 PFSH Acute PFSH: Medical History Anxiety Chronic migraine Encounter for surveillance of nuvaring Obesity (BMI 30-39.9) Surgical History History of tonsillectomy and adenoidectomy age 5 Status post laparoscopic sleeve gastrectomy Family History Other Cancer Diabetes Heart disease Hypertension Social History Smoking and tobacco status: never smoked Second hand smoke exposure: No Smoking risk assessment/counseling performed?: No Alcohol intake: current Alcohol intake frequency: holidays/special occasions only Desire information about alcohol rehabilitation?: No Counseling given: No Desire information about substance/drug rehabilitation?: No Counseling given: No Adopted: No Caregiver/support person: No Lives independently: Yes Household members: significant other Housing: House Marital status: Single Number of children: 0 service: No Current occupational status: employed Current occupation: [employer] – [place] History of recent travel: No Sexually active: Yes Current gender identity: Female Vitals/I&O/Wt Last Vital Signs Temp 97.4 F L 02/12/22 05:15 Pulse 86 02/12/22 06:45 Resp 16 02/12/22 06:45 BP 159/93 02/12/22 06:45 Pulse Ox 96 02/12/22 06:45 02/11/22 02/12/22 02/12/22 22:59 06:59 14:59 Intake Total 1000 / 1000 Balance 1000 / 1000 Weight last 48 hrs Weight 87.997 kg Physical Exam Narrative: General: Patient is awake and alert. Appears uncomfortable. Head: Normocephalic. Atraumatic. EOM intact. Neck: No JVD. Cardiovascular: RRR. No gallops. No murmurs. No peripheral edema. Lungs: Clear to auscultation, no use of accessory muscles, no crackles or wheezes. Skin: No jaundice. No rashes. Abdomen: Trocar site surgical wounds are clear dry and intact. Very mild tenderness to palpation. No rebound. No guarding. Genito Urinary: Genital exam not performed since complaints not related. Rectal: Rectal exam not performed since no symptoms indicated blood loss. Extremeties: No cyanosis or clubbing. Musculoskeletal: 5/5 strength, normal range of motion, no swollen or erythematous joints. Neurological: Moves all 4 extremities. No myoclonus. Data : 02/12/22 05:48 02/12/22 05:48 A&P Assessment and plan (1) Portal vein thrombosis: -Associated with abdominal pain, nausea, and emesis -Pain control, reports hydromorphone works best -Antiemetics -NPO -IV fluids -Start heparin drip -Monitor PTT -Monitor PLT per protocol -Patient educated to remove Nuvaring, she reports will remove today Status: Acute (2) Superior mesenteric vein thrombosis: -As above Status: Acute (3) Leukocytosis: -Likely stress induced -Continue to monitor Status: Acute (4) Metabolic acidosis: -HAGMA -Obtain lactic acid -IV fluids Status: Acute (5) Status post laparoscopic sleeve gastrectomy: -Surgical sites C/D/I -Management per surgery -Diet and vitamin per surgery Status: Acute (6) Obesity (BMI 30-39.9): -S/P recent vertical sleeve Status: Chronic (7) Chronic migraine: Status: Chronic (8) Anxiety: Status: Acute Plan Thank you for allowing the hospitalist service to participate in the care of this patient. Will continue to follow. Consult Attestations Medical Necessity Statement: Patient with intractable n/v/abd pain, found to have PVT requiring hospiltization for IV fluids, IV analgesics, IV anti-emetics, and IV anticoagulation. 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
[2022-02-12] MEDS: pantoprazole 40 mg SDV IVP ×2 (08:48→18:30)
[2022-02-12] MEDS: heparin 5,000 unit/mL INJ 1 mL 7032 UNIT IVP (08:48)
[2022-02-12] MEDS: heparin drip 25,000 UNIT/500 ML PREMIX 31.68 UNIT IV (08:50)
[2022-02-12 09:58] LABS: Lactate (Lactic Acid level) 0.7 mmol/L (0.5-2.2)
[2022-02-12 10:06] LABS: HCG, Serum Qual Negative (Negative)
--- NOTE | 2022-02-12 11:09 | PC.NURSE ---
PT placed on continuous NIBP, SpO2, and CM
[2022-02-12] MEDS: lactated ringers 1,000 ML 125 ML IV ×2 (13:46→21:50)
[2022-02-12 15:36] LABS: INR 1.19 (0.8-1.2)
[2022-02-12 15:48] LABS: Partial Thromboplastin Time 149.7 SECONDS (23.9-36.7)
--- NOTE | 2022-02-12 17:20 | PC.NURSE ---
Hospitalist notified of PTT level. dose titrated per protocol. Hospitalist aware of new dose.
[2022-02-12] MEDS: LORazepam 0.5 mg Tablet 0.25 MG PO (18:30)
[2022-02-12] MEDS: heparin drip 25,000 UNIT/500 ML PREMIX 26.4 UNIT IV (19:26)
[2022-02-12] MEDS: scopolamine 1.5 Patch 1 PATCH TRANSDERMA (19:27)
[2022-02-12 21:36] LABS: Partial Thromboplastin Time 69.4 SECONDS (23.9-36.7)
--- NOTE | 2022-02-12 21:45 | PC.NURSE ---
PTT 69.4, heparin dosing protocol- no change, repeat PTT in 6 hours. Verified with Marlin Ibarra RN
[2022-02-13] VITALS (13 sets, daily range): BP systolic 115–166; BP diastolic 80–94; PULSE 80–107; RESP 12–18; TEMP 36.6–36.8; O2SAT 93–98
[2022-02-13 03:22] LABS: Basophils # 0.1 10^3/uL (0.0-0.1); Basophils % 0.4 %; Eosinophils # 0.1 10^3/uL (0.0-0.8); Eosinophils % 0.7 %; Hematocrit 32.8 % (37.0-47.0); Hemoglobin 10.5 g/dL (11.5-15.3); Lymphocytes # 2.9 10^3/uL (0.8-4.8); Lymphocytes % 21.2 %; Mean Corpuscular Hemoglobin 26.6 pg (28.0-34.0); Mean Corpuscular Volume 83.2 fl (81-99); Mean Platelet Volume 10.9 fL (7.4-10.4); Monocytes # 0.9 10^3/uL (0.2-0.9); Monocytes % 6.3 %; Neutrophils % 70.7 %; Nucleated Red Blood Cells % 0 %; Platelet Count 255 10^3/cmm (130-400); Red Blood Count 3.94 10^6/uL (4.1-5.3); Red Cell Distribution Width 13.2 % (12.1-15.1); White Blood Count 13.4 10^3/uL (4.0-10.0)
[2022-02-13 03:38] LABS: Partial Thromboplastin Time 56.8 SECONDS (23.9-36.7)
--- NOTE | 2022-02-13 03:41 | PC.NURSE ---
PTT 56.8, according to heparin dosing protocol- no dose change, recheck PTT in 6 hours. Verified by Marlin Ibarra RN.
[2022-02-13 03:43] LABS: Lactate (Lactic Acid level) 0.7 mmol/L (0.5-2.2)
[2022-02-13 03:44] LABS: Alanine Aminotransferase 15 U/L (0-33); Albumin Level 3.4 g/dL (3.5-5.2); Alkaline Phosphatase 75 IU/L (35-105); Anion Gap 16.6 (5-19); Aspartate Amino Transferase 11 U/L (0-32); Blood Urea Nitrogen 5 mg/dL (6-20); Calcium 8.8 mg/dL (8.5-10.5); Carbon Dioxide 21 mmol/L (22-29); Chloride 102 mmol/L (98-107); Globulin 3.2 g/dL (1.3-4.6); Glomerular Filtration Rate 122.8 mL/min (90-130); Glucose 96 mg/dL (65-115); Osmolality Calculated 279 mOsm/kg (285-295); Potassium 3.6 mmol/L (3.5-5.1); Sodium 136 mmol/L (136-145); Total Bilirubin 0.3 mg/dL (0.15-1.2); Total Protein 6.6 g/dL (6.6-8.7)
[2022-02-13] MEDS: HYDROmorphone 1 mg/mL INJ 1 mL IVP ×3 (04:51→15:20)
[2022-02-13] MEDS: lactated ringers 1,000 ML 125 ML IV ×2 (05:53→15:21)
--- NOTE | 2022-02-13 06:37 | USR_ITS ---
PROCEDURE INFORMATION: Exam: US Abdomen Complete Exam date and time: 02/13/2022 6:57 AM Age: 26 years old Clinical indication: Abdominal tenderness and bloating and nausea and vomiting and other: Please see CT; Prior surgery; Surgery date: <1 month; Surgery type: Stomach sleeve for obesity. Patient HX: Sleeve lap on 02-01-2022. ; Additional info: Portal vein thrmbosis on CT abdomen and pelvis, please preform u/s mesenteric duplex of mesenteric and and portal TECHNIQUE: Imaging protocol: Real-time ultrasound of the abdomen with image documentation. COMPARISON: CT abdomen pelvis w con* [id number] 02/12/2022 6:17 AM FINDINGS: Liver: Normal. No mass. Gallbladder: Normal. Sludge noted. No gallstones. There is no gallbladder wall thickening. Negative sonographic Ellis's sign. Biliary ducts: Normal. No stones. No dilation. Pancreas: Visualized pancreas is unremarkable. Right kidney: Normal. No mass. No hydronephrosis. Left kidney: Normal. No mass. No hydronephrosis. Spleen: Normal. No splenomegaly. Intraperitoneal space: Trace perihepatic free fluid noted. Aorta: Normal. No aneurysm. Inferior vena cava: Normal. Hepatic veins: Patent hepatic veins. Portal venous: No clear visualization of the portal vein, SMV or IMV. US/US abdomen complete* [id number] IMPRESSION: No clear visualization of the portal vein, SMV and IMV, which given CT findings is concerning for thrombosis.
[2022-02-13] MEDS: heparin drip 25,000 UNIT/500 ML PREMIX 26.4 UNIT IV (07:47)
--- NOTE | 2022-02-13 08:08 | P.PN_ITS ---
Subjective Subjective: Patient overall feels a whole lot better. Responding to IV fluid resuscitation, nausea medications and continue to have therapeutic PTT with the heparin drip that has been currently monitored by the hospitalist service. Adequate urine output. No acute events overnight. Multiple attempts by Dr. Villanueva ED physician to reach out for different facilities about potential further intervention if needed as he communicated with interventional vascular providers as well as me communicating with he patobiliary surgeon over [place] he also communicated with the interventional intervention at other facilities and all agreed to keep the patient on anticoagulation and that should take care of the matter. My initial concern if the patient were to deteriorate and she may need something tPA based we do not offer it at this facility. Ultimately the patient clinically is making appropriate progress, slight elevation of leukocytosis to 13.4 and could be reactive and also a slight drift in H&H where hemoglobin dropped from 12.4-10.5. Patient maintains stable vital signs. CMP shows normal lactic acid of 0.7 and liver function tests within normal limits. Patient was able to remove her estrogen based vaginal ring yesterday in the ER per my recommendation Medications: Reviewed: Yes Vitals/I&O/Wt Last Vital Signs Temp 98.2 F 02/13/22 03:53 Pulse 95 02/13/22 08:00 Resp 13 02/13/22 08:00 BP 126/81 02/13/22 08:00 Pulse Ox 98 02/13/22 08:00 02/12/22 02/13/22 02/13/22 22:59 06:59 14:59 Intake Total 1319.088 / 2319.088 1000 / 3319.088 326.04 / 326.04 Balance 1319.088 / 2319.088 1000 / 3319.088 326.04 / 326.04 Weight last 48 hrs Weight 194 lb 0.108 oz Weight 194 lb Physical Exam Narrative: Patient is conscious alert oriented X3 No apparent distress BMI 33.3 Head and neck examination PERRLA no masses no cervical lymphadenopathy no jaundice Cardiac examination audible S1-S2 no murmurs no gallops no arrhythmias Chest is clear bilateral,abscence of Rhonchi or wheezes,no surgical emphysema Abdomen less tender but nondistended soft no organomegaly guarding or rigidity/no signs of peritonitis Bowel sounds are positive Extremities no cyanosis no clubbing no edema Data : 02/13/22 02:49 02/13/22 02:49 A&P Assessment and plan (1) Portal vein thrombosis: Assessment Status post laparoscopic sleeve gastrectomy 02/01/2022. Developed nausea and vomiting over the past couple of days status post ingestion of fried beans and was drinking from a straw, likely she did build bubble of of gas of her gastric conduit and she ended up coming to the ER where CT scan of the abdomen pelvis was done and incidental finding of portal vein thrombosis and mild pancreatitis was detected. Plan of care; 1-IV fluid resuscitation 2-Continue heparin drip and will discuss with the hospitalist service about the appropriate oral anticoagulation upon discharge at some point 3-repeated physical exam 4. Encourage ambulation 5. Repeated physical exam 6. We will continue PPI and have the patient sips of water 7. Adequate pain control 8. Repeat labs in the morning 9. Strict I's and O's 10. Cardiac monitoring 11. I will start the patient empirically on Zosyn due to the leukocytosis 12. We will order an ultrasound mesenteric venous Doppler to reevaluate the portal vein thrombosis as well as the superior mesenteric. 13. Incentive spirometer every hour 14. Patient's education as well as educating her parents. Assurance and education All questions have been answered and all concerns have been addressed to patient's satisfaction. Status: Acute (2) Hypercoagulable state: We will plan to have hematology consultation upon discharge for potential work- up to rule out hypercoagulability status. To rule out potential underlying factor V Leiden deficiency, antiphospholipid syndrome etc. Patient was educated about that and she agreed Status: Suspected Attestations Medical Necessity Statement*: Patient requiring inpatient hospitalization for anticoagulation and resuming bowel function. 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
[2022-02-13] MEDS: piperacillin-tazobactam 3.375 GM in sodium chloride 0.9% (plus) 50 ML IV ×2 (09:01→18:06)
--- NOTE | 2022-02-13 09:12 | P.PN_ITS ---
Subjective Subjective: Patient reports abdominal pain is improved as compared to yesterday. Reports deep breaths aggrevate the pain. Reports no bowel movement overnight. Reports she removed her Nuva ring. Denies fevers, chills, chest pain or shortness of breath. Medications: Reviewed: Yes Vitals/I&O/Wt Last Vital Signs Temp 98.2 F 02/13/22 03:53 Pulse 95 02/13/22 08:00 Resp 13 02/13/22 08:00 BP 126/81 02/13/22 08:00 Pulse Ox 98 02/13/22 08:00 02/12/22 02/13/22 02/13/22 22:59 06:59 14:59 Intake Total 1319.088 / 2319.088 1000 / 3319.088 326.04 / 326.04 Balance 1319.088 / 2319.088 1000 / 3319.088 326.04 / 326.04 Weight last 48 hrs Weight 88 kg Weight 87.997 kg Physical Exam Narrative: General: Patient is awake and alert.? Appears fatigued. Head:? Normocephalic. Atraumatic. EOM intact. Neck: No JVD. Cardiovascular: RRR. No gallops. No murmurs. No peripheral edema. Lungs: Clear to auscultation, no use of accessory muscles, no crackles or wh eezes. Skin: No jaundice. No rashes. Abdomen: Surgical wounds are clear, dry and intact.? Very mild tenderness to palpation.? No rebound.? No guarding. Bowel sounds present. Extremeties: No cyanosis or clubbing. Musculoskeletal: Normal range of motion, no swollen or erythematous joints. Neurological: Moves all 4 extremities. No myoclonus. Data : 02/13/22 02:49 02/13/22 02:49 A&P Assessment and plan (1) Portal vein thrombosis: -PMV thrombus w/ extension intot he intrahepatic portal veins, right > left; upper branches of SMV a/w mild mesenteric edema -Abdominal pain improving, on IV analgesics -Reports she removed Nuva ring -Antiemetics as needed -Continue IV fluids while NPO -Heparin drip with serial PTT monitoring -Anticipate at least 6 months of anticoagulation with goal of PMV recanalization, recommend repeat imaging prior to discontinuing anticoagulation at that time -Can likely transition to DOAC when clinically improved and no procedures are needed Status: Acute (2) Superior mesenteric vein thrombosis: -As above Status: Acute (3) Metabolic acidosis: -Improving with treatment Status: Acute (4) Leukocytosis: -Slightly worse today -Afebrile -Exam improved -On emperic Zosyn Status: Acute (5) Status post laparoscopic sleeve gastrectomy: -Surgery following -Surgical wounds are c/d/i -Diet and bariatric vitamins per surgery Status: Acute (6) Obesity (BMI 30-39.9): -S/P lap sleeve Status: Chronic (7) Chronic migraine: -Anagesics as needed Status: Chronic (8) Anxiety: -On ativan PRN Status: Acute Plan Thank you for this consultation. The hospitalist service will continue to follow while patient remains in patient. Attestations Medical Necessity Statement*: Patient w/ symptomatic extensive portal vein thrombosis requring ongoing hospitalization for IV fluids support, IV analgesics/anti-emetics, and IV anticoagulation. Coding Level of Care Code Acute Product Support Consultant for [facility] Diagnoses Metabolic acidosis E87.2 Leukocytosis D72.829 Portal vein thrombosis I81 Superior mesenteric vein thrombosis K55.069 Status post laparoscopic sleeve gastrectomy Z98.84 Obesity (BMI 30-39.9) E66.9 Chronic migraine G43.709 Anxiety F41.9
[2022-02-13 14:00] LABS: Partial Thromboplastin Time 82.7 SECONDS (23.9-36.7)
[2022-02-13] MEDS: ondansetron 2 mg/ML SDV 2 mL 4 MG IVP ×2 (15:20→20:01)
--- NOTE | 2022-02-13 16:31 | PM.MISC ---
Miscellaneous Note Purpose of Documentation: Evening rounds Note: Ms. Cook has been clinically improving and feeling better. Started passing gas. Vital signs continue to be stable and no evidence of fevers. Tolerating sips of water. Talked with mom over the phone for updates and she told me that she feels that Ms. Cook is 100% better. Ultrasound findings were shared with the patient and her mom. We will plan to continue IV fluid and heparin drip with the plan to repeat blood work in the morning I will start the patient on sugar-free popsicles Encourage ambulation and incentive spirometer Risks benefits of bleeding as a side effect from anticoagulation has been discussed with the patient and her mom Assurance and education All questions have been answered and all concerns have been addressed to patient's satisfaction.
[2022-02-13] MEDS: lactated ringers 500 ML 999 ML IV (16:51)
[2022-02-13] MEDS: pantoprazole DR 40 mg Tablet PO (18:08)
[2022-02-13] MEDS: oxyCODONE 5 mg IR Tab/Cap PO (19:58)
[2022-02-13 20:03] LABS: Partial Thromboplastin Time 97.1 SECONDS (23.9-36.7)
[2022-02-13] MEDS: morphine 4 mg/mL SDV 1 mL 1 MG IVP (20:44)
[2022-02-13] MEDS: lactated ringers 1,000 ML 100 ML IV (23:02)
[2022-02-14] VITALS (10 sets, daily range): BP systolic 133–163; BP diastolic 80–87; PULSE 78–101; RESP 16–20; TEMP 36.4–36.9; O2SAT 97–99
[2022-02-14] MEDS: acetaminophen 325 mg Tablet 650 MG PO (00:55)
[2022-02-14] MEDS: piperacillin-tazobactam 3.375 GM in sodium chloride 0.9% (plus) 50 ML IV ×3 (00:59→17:57)
[2022-02-14 01:16] LABS: Basophils # 0.1 10^3/uL (0.0-0.1); Basophils % 0.5 %; Eosinophils # 0.1 10^3/uL (0.0-0.8); Eosinophils % 1.1 %; Hematocrit 28.8 % (37.0-47.0); Hemoglobin 9.5 g/dL (11.5-15.3); Lymphocytes # 2.8 10^3/uL (0.8-4.8); Lymphocytes % 28.1 %; Mean Corpuscular Hemoglobin 26.8 pg (28.0-34.0); Mean Corpuscular Volume 81.1 fl (81-99); Mean Platelet Volume 10.8 fL (7.4-10.4); Monocytes # 0.7 10^3/uL (0.2-0.9); Monocytes % 7.1 %; Neutrophils # 6.23 10^3/uL (1.8-7.7); Neutrophils % 62.8 %; Nucleated Red Blood Cells % 0 %; Platelet Count 233 10^3/cmm (130-400); Red Blood Count 3.55 10^6/uL (4.1-5.3); Red Cell Distribution Width 13.1 % (12.1-15.1); White Blood Count 9.9 10^3/uL (4.0-10.0)
[2022-02-14 01:33] LABS: Partial Thromboplastin Time 58.9 SECONDS (23.9-36.7)
[2022-02-14 01:41] LABS: Alanine Aminotransferase 12 U/L (0-33); Albumin Level 3.2 g/dL (3.5-5.2); Alkaline Phosphatase 65 IU/L (35-105); Anion Gap 19.1 (5-19); Aspartate Amino Transferase 10 U/L (0-32); Blood Urea Nitrogen 4 mg/dL (6-20); Calcium 8.6 mg/dL (8.5-10.5); Carbon Dioxide 18 mmol/L (22-29); Chloride 101 mmol/L (98-107); Globulin 3.3 g/dL (1.3-4.6); Glomerular Filtration Rate 122.8 mL/min (90-130); Glucose 77 mg/dL (65-115); Osmolality Calculated 276 mOsm/kg (285-295); Potassium 3.1 mmol/L (3.5-5.1); Sodium 135 mmol/L (136-145); Total Bilirubin 0.3 mg/dL (0.15-1.2); Total Protein 6.5 g/dL (6.6-8.7)
[2022-02-14 01:42] LABS: Lactate (Lactic Acid level) 0.8 mmol/L (0.5-2.2)
--- NOTE | 2022-02-14 04:25 | PC.NURSE ---
Heparin drip titrated per protocol throughout shift, last blood draw therapeutic with no change in infusion according to protocol.
[2022-02-14] MEDS: ondansetron 2 mg/ML SDV 2 mL 4 MG IVP ×3 (05:11→20:06)
--- NOTE | 2022-02-14 05:14 | PC.NURSE ---
Patient reports nausea at this time with small amount of clear emesis out. Prn medication given.
--- NOTE | 2022-02-14 06:11 | PC.NURSE ---
Reports a pain of 7, denies pharmacological intervention as well as non-pharmacological intervention. States nausea was alleviated with prn medication no further emesis.
[2022-02-14 07:39] LABS: Partial Thromboplastin Time 64.6 SECONDS (23.9-36.7)
[2022-02-14] MEDS: heparin drip 25,000 UNIT/500 ML PREMIX 17.6 UNIT IV (07:54)
[2022-02-14] MEDS: potassium chloride premix 100 ML 25 MEQ IV (07:55)
--- NOTE | 2022-02-14 08:23 | P.PN_ITS ---
Subjective Subjective: Patient overall feels better yet she did require IV pain medication overnight. She did have a bout of nonbloody clear emesis and she reports nausea. Maintained to have stable vital signs and adequate urine output. Slight drift in H&H and normalization of WBC count. Potassium of 3.1 pending replacement. Normal LFTs and normal lactic acid. APTT within therapeutic. Patient complains of pain towards the left and right side of the abdomen mostly at the incision sites Vitals/I&O/Wt Last Vital Signs Temp 98.3 F 02/14/22 07:31 Pulse 96 02/14/22 07:31 Resp 17 02/14/22 07:31 BP 163/85 02/14/22 07:31 Pulse Ox 98 02/14/22 07:31 02/13/22 02/14/22 02/14/22 22:59 06:59 14:59 Intake Total 1665.544 / 3208.784 50 / 3258.784 498.168 / 498.168 Output Total 0 / 400 1100 / 1500 Balance 1665.544 / 2808.784 -1050 / 1758.784 498.168 / 498.168 Weight last 48 hrs Weight 194 lb 0.108 oz Physical Exam Narrative: Patient is conscious alert oriented X3 No apparent distress BMI 33.3 Head and neck examination PERRLA no masses no cervical lymphadenopathy no jaundice Cardiac examination audible S1-S2 no murmurs no gallops no arrhythmias Chest is clear bilateral,abscence of Rhonchi or wheezes,no surgical emphysema Abdomen mildly but nondistended soft no organomegaly guarding or rigidity/no signs of peritonitis Bowel sounds are positive Extremities no cyanosis no clubbing no edema Data : 02/14/22 01:09 02/14/22 01:09 A&P Assessment and plan (1) Portal vein thrombosis: Assessment Status post laparoscopic sleeve gastrectomy 02/01/2022. Developed nausea and vomiting over the past couple of days status post ingestion of fried beans and was drinking from a straw, likely she did build bubble of of gas of her gastric conduit and she ended up coming to the ER where CT scan of the abdomen pelvis was done and incidental finding of portal vein thrombosis and mild pancreatitis was detected. Plan of care; 1-we will switch to maintenance fluids D5 and half-normal +20 KCl at 75 mL/h 2-discussed with hospitalist service about potential switch to oral anticoagulation and patient has been updated with that regard. 3-repeated physical exam 4. Encourage ambulation 5. Educate patient about safe contraception nonhormonal based and to seek specialist advice with that regard 6. We will start the patient on post bariatric stage I diet 7. Adequate pain control 8. We will follow on serum lipase 9. Strict I's and O's 10. Continue cardiac monitoring 11. DC Zosyn 12. Incentive spirometer every hour 13. Patient's education as well as educating her parents. Assurance and education All questions have been answered and all concerns have been addressed to patient's satisfaction. Status: Acute (2) Hypercoagulable state: We will plan to have hematology consultation upon discharge for potential work- up to rule out hypercoagulability status.Potential rule out underlying factor V Leiden deficiency, antiphospholipid syndrome etc. Patient was educated about that and she agreed Status: Suspected (3) Contraception management: Outpatient referral to women's health to discuss potential options Status: Chronic Attestations Medical Necessity Statement*: Patient requiring inpatient hospitalization for management of portal vein thrombosis and resuming bowel function Time Spent in Patient Care: 16 - 35 minutes Coding Level of Care Code Acute Slicer Machine Operator for Angelica Colon Diagnoses Portal vein thrombosis I81 Hypercoagulable state D68.59 Contraception management Z30.9
[2022-02-14] MEDS: promethazine 25 mg/mL SDV 1 mL 12.5 MG IM ×3 (08:24→22:41)
[2022-02-14] MEDS: HYDROmorphone 1 mg/mL INJ 1 mL IVP ×2 (08:31→23:17)
[2022-02-14] MEDS: potassium chloride oral liq 20 mEq/15 mL UDC 40 MEQ PO (08:42)
[2022-02-14 08:44] LABS: Lipase 17 U/L (13-60)
[2022-02-14] MEDS: D5-NS 0.45% + KCL 20 mEq 20 MEQ/1,000 ML BAG 75 MEQ IV ×2 (08:44→22:41)
--- NOTE | 2022-02-14 09:39 | PM.PN ---
Subjective Subjective: Luke reports that she is feeling better. She is not nauseated. She is still having some abdominal discomfort. She believes she is able to eat, without vomiting. A clear liquid diet has been started by her attending physician, surgery. Medications: Reviewed: Yes Vitals/I&O/Wt Last Vital Signs Temp 98.3 F 02/14/22 07:31 Pulse 96 02/14/22 07:31 Resp 18 02/14/22 08:31 BP 163/85 02/14/22 07:31 Pulse Ox 98 02/14/22 07:31 02/13/22 02/14/22 02/14/22 22:59 06:59 14:59 Intake Total 1665.544 / 3208.784 50 / 3258.784 1498.168 / 1498.168 Output Total 0 / 400 1100 / 1500 Balance 1665.544 / 2808.784 -1050 / 3162.378 4575.168 / 1498.168 Weight last 48 hrs Weight 88 kg Physical Exam Narrative: General exam is a young white female, conversive in no distress Neck is supple Cardiovascular regular rate and rhythm without murmur Lungs clear no wheezes or crackles Abdomen is soft. Positive bowel sounds are noted. Slight generalized tenderness. Extremities no cyanosis clubbing or edema Data : 02/14/22 01:09 02/14/22 01:09 A&P Assessment and plan (1) Portal vein thrombosis: She is currently on a heparin drip. 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 Check magnesium level Mild anemia Thank you for this consultation Attestations Medical Necessity Statement*: As per primary Coding Level of Care Code Acute Metalizing Machine Operator for Angelica Colon Diagnoses Portal vein thrombosis I81 Superior mesenteric vein thrombosis K55.069 Leukocytosis D72.829 Status post laparoscopic sleeve gastrectomy Z98.84 Anxiety F41.9
[2022-02-14 13:05] LABS: Partial Thromboplastin Time 54.5 SECONDS (23.9-36.7)
[2022-02-14] MEDS: heparin 5,000 unit/mL INJ 1 mL IV (14:50)
--- NOTE | 2022-02-14 15:03 | P.MISC_ITS ---
Miscellaneous Note Purpose of Documentation: Evening rounds Note: Patient overall seems to have intermittent nausea and once she start retching her abdominal wall muscles hurt, and require pain medications which made the nausea worse. She continues to pass gas and having stable vital signs and denies any bloating or abdominal distention or hematemesis. No evidence of hypotension or tachycardia or fevers, did tolerate some p.o. intake. To me she seems anxious and I did have a discussion over the phone with her mom and Ms. Cook's presents and her friend. About the importance to realize that pain medications can make her more nauseous and constipated which will make it a vicious [place]. At the same time we do want Ms. Cook to hurt so by application of ice packs or heat pads alternatingly can cut the edge and try to wean her off any pain medications if possible. I will also add Carafate p.o. every 6 hours to help with soothing of the lining of the gastric conduit and perhaps minimize the nausea. Patient's mom had an idea about having a machine at home to check on the blood thinner level and perhaps that would include warfarin which the patient will not be receiving this medicine she will be receiving Eliquis by the hospitalist service and that will not require testing at home. Another component that I educated the patient about the importance to control her nausea as I do want her to vomit her Eliquis when she gets started to maintain appropriate anticoagulation level. Patient understands and was assured Physical examination shows no tenderness except at the left upper quadrant and mild at the right lower quadrant but no signs of peritonitis We will continue to follow the patient closely as I do appreciate hospitalist input. Assurance and education All questions have been answered and all concerns have been addressed to marsha calvillo's satisfaction.
[2022-02-14] MEDS: LORazepam 0.5 mg Tablet 0.25 MG PO (17:56)
[2022-02-14] MEDS: pantoprazole DR 40 mg Tablet PO (17:56)
[2022-02-14] MEDS: sucralfate 1 gm/10 mL Oral Liq UDC PO ×2 (17:57→21:47)
--- NOTE | 2022-02-14 19:08 | PC.NURSE ---
PATIENT HAS VOMITED X3 IN THE LAST FEW HOURS. HEPARIN DRIP TURNED OFF AT 1800. DR. BENDER NOTIFIED. PLAN IS TO START ELIQUIS TONIGHT AT 2100. IF PATIENT IS UNABLE TO KEEP ELIQUIS DOWN WITHOUT VOMITING, HEPARIN DRIP WILL BE RESTARTED.
--- NOTE | 2022-02-14 20:11 | PC.NURSE ---
Patient's urine emptied from hat by this RN. Urine was clear pale yellow with one small blood clot.
[2022-02-14] MEDS: metoclopramide 5 mg/mL SDV 2 mL IVP (20:40)
--- NOTE | 2022-02-14 20:45 | PC.NURSE ---
New order for PRN Reglan received due to other anti nausea medications being ineffective for patient. New med administered. Patient did have bile green emesis.
[2022-02-14 21:07] LABS: Partial Thromboplastin Time 40.8 SECONDS (23.9-36.7)
[2022-02-14] MEDS: apixaban 5 mg Tablet 10 MG PO (21:09)
--- NOTE | 2022-02-14 22:32 | PC.NURSE ---
No pill fragments noted in bile emesis at this time. Dr. Bahena notified with no new orders received at this time.
[2022-02-15] VITALS (11 sets, daily range): BP systolic 107–145; BP diastolic 70–94; PULSE 66–92; RESP 16–18; TEMP 36.3–36.8; O2SAT 91–100
[2022-02-15] MEDS: piperacillin-tazobactam 3.375 GM in sodium chloride 0.9% (plus) 50 ML IV (00:13)
[2022-02-15] MEDS: sucralfate 1 gm/10 mL Oral Liq UDC PO ×4 (03:17→20:39)
[2022-02-15] MEDS: HYDROmorphone 1 mg/mL INJ 1 mL IVP (04:24)
[2022-02-15] MEDS: ondansetron 2 mg/ML SDV 2 mL 4 MG IVP ×3 (04:25→21:27)
--- NOTE | 2022-02-15 04:29 | PC.NURSE ---
Patient's urine clear pale yellow with one very small blood clot noted
[2022-02-15 04:58] LABS: Basophils % 0.6 %; Eosinophils # 0.1 10^3/uL (0.0-0.8); Eosinophils % 0.8 %; Hematocrit 29.8 % (37.0-47.0); Hemoglobin 9.8 g/dL (11.5-15.3); Lymphocytes # 1.5 10^3/uL (0.8-4.8); Lymphocytes % 23.8 %; Mean Corpuscular HGB Conc 32.9 g/dL (30.0-36.0); Mean Corpuscular Hemoglobin 26.8 pg (28.0-34.0); Mean Corpuscular Volume 81.6 fl (81-99); Mean Platelet Volume 10.9 fL (7.4-10.4); Monocytes # 0.7 10^3/uL (0.2-0.9); Monocytes % 11.3 %; Neutrophils # 3.93 10^3/uL (1.8-7.7); Neutrophils % 63.2 %; Nucleated Red Blood Cells % 0 %; Platelet Count 238 10^3/cmm (130-400); Red Blood Count 3.65 10^6/uL (4.1-5.3); Red Cell Distribution Width 13.2 % (12.1-15.1); White Blood Count 6.2 10^3/uL (4.0-10.0)
--- NOTE | 2022-02-15 05:13 | PC.NURSE ---
Patient reassessed after pain and nausea medication administration this morning. Patient states pain is at a 1 right now she feels pretty good , denies nausea. When asked if flatulence has been present patient stated it is when she ambulates to the restroom. Has been educated on need for ambulation to assist/encourage bowel motility.
[2022-02-15 05:24] LABS: Alanine Aminotransferase 11 U/L (0-33); Albumin Level 3.3 g/dL (3.5-5.2); Alkaline Phosphatase 93 IU/L (35-105); Aspartate Amino Transferase 23 U/L (0-32); Blood Urea Nitrogen 2 mg/dL (6-20); Calcium 8.8 mg/dL (8.5-10.5); Carbon Dioxide 22 mmol/L (22-29); Chloride 105 mmol/L (98-107); Globulin 3.3 g/dL (1.3-4.6); Glomerular Filtration Rate 151.6 mL/min (90-130); Glucose 95 mg/dL (65-115); Osmolality Calculated 282 mOsm/kg (285-295); Sodium 138 mmol/L (136-145); Total Bilirubin 0.3 mg/dL (0.15-1.2); Total Protein 6.6 g/dL (6.6-8.7)
[2022-02-15 05:25] LABS: Anion Gap 14.5 (5-19)
[2022-02-15 05:26] LABS: Potassium 3.5 mmol/L (3.5-5.1)
[2022-02-15] MEDS: LORazepam 0.5 mg Tablet 0.25 MG PO ×3 (06:15→21:26)
[2022-02-15] MEDS: metoclopramide 5 mg/mL SDV 2 mL IVP ×3 (06:15→17:40)
--- NOTE | 2022-02-15 06:16 | P.PN_ITS ---
Subjective Subjective: Patient reports that she had a better night and slept better. Had 2 bouts of small bilious emesis but otherwise she has been doing well. Stable vital signs and adequate urine output. Continues to pass gas. Eliquis was started yesterday 9 PM in the form of 5 mg tablet x2 and patient managed to keep them down. Heparin drip was discontinued by hospitalist's service. Stable H&H, hemoglobin 9.8 g from 9.5 g. Platelet count 238. Potassium 3.5 and serum creatinine 0.5. Liver function tests maintain to be within normal limits. Per nursing staff patient gets anxious particularly that one of the family members yesterday mention something about her vomiting that is an indicator of her bowels shutting down. And patient started to get anxious and worried thereafter. On morning rounds patient seemed to be calm and comfortable and I assured her about her clinical progress that she continues to do well and we need to have her anxiety under better control and educate family members more, as I would like to see the patient tolerating p.o. intake. Prior to any potential discharge home. Morning rounds took place with the nursing staff Selena with emphasis on educating the patient and her fianc?. Medications: Reviewed: Yes Vitals/I&O/Wt Last Vital Signs Temp 97.3 F L 02/15/22 04:00 Pulse 76 02/15/22 05:20 Resp 17 02/15/22 04:24 BP 116/74 02/15/22 04:00 Pulse Ox 100 02/15/22 04:00 02/14/22 02/14/22 02/15/22 14:59 22:59 06:59 Intake Total 2271.661 / 2271.661 1426.507 / 3698.168 50 / 3748.168 Output Total 780 / 780 1050 / 1830 Balance 2271.661 / 2271.661 646.507 / 2918.168 -1000 / 1918.168 Physical Exam Narrative: Patient is conscious alert oriented X3 No apparent distress BMI 33.3 Head and neck examination PERRLA no masses no cervical lymphadenopathy no jaundice Cardiac examination audible S1-S2 no murmurs no gallops no arrhythmias Chest is clear bilateral,abscence of Rhonchi or wheezes,no surgical emphysema Abdomen mildly tender otherwise soft no organomegaly guarding or rigidity/no signs of peritonitis Bowel sounds are positive Extremities no cyanosis no clubbing no edema Data : 02/15/22 04:30 02/15/22 04:30 A&P Assessment and plan (1) Portal vein thrombosis: Assessment Status post laparoscopic sleeve gastrectomy 02/01/2022. Developed nausea and v omiting over the past couple of days status post ingestion of fried beans and was drinking from a straw, likely she did build bubble of of gas of her gastric conduit and she ended up coming to the ER where CT scan of the abdomen pelvis was done and incidental finding of portal vein thrombosis and mild pancreatitis was detected. Plan of care; 1-continue coordination with hospitalist service, I appreciate the input and management 2-patient's assurance and answering all questions related to her condition and educating the patient about the importance to focus on nutrition at this point, will follow on dietitian's recommendations. 3-Encourage ambulation 5-continue post bariatric stage I diet 7. Adequate pain control ,educating the patient about weaning off IV Dilaudid 8. Strict I's and O's 10. Continue cardiac monitoring 11.Incentive spirometer every hour 12. Patient's education as well as educating her parents. And other family members Assurance and education All questions have been answered and all concerns have been addressed to patient's satisfaction. Status: Acute (2) Hypercoagulable state: Hematology consultation upon discharge for potential work-up to rule out hypercoagulability status.Potential rule out underlying factor V Leiden deficiency, antiphospholipid syndrome etc. Patient was educated about that and she agreed Status: Suspected (3) Contraception management: Outpatient referral to women's health to discuss potential options Status: Chronic Attestations Medical Necessity Statement*: Patient requiring inpatient hospital passing 2 midnights for appropriate anticoagulation and maintain p.o. intake. Time Spent in Patient Care: 16 - 35 minutes Coding Level of Care Code Acute Child Adolescent Psychiatrist for [facility] Diagnoses Portal vein thrombosis I81 Hypercoagulable state D68.59 Contraception management Z30.9
--- NOTE | 2022-02-15 06:46 | PC.NURSE ---
Printed education was reviewed with and given to patient at this time.
--- NOTE | 2022-02-15 08:00 | P.PN_ITS ---
Subjective Subjective: Had some nausea last night associated with some vomiting. Feels better this morning. Does not feel nauseous, abdominal pain is improved. Medications: Reviewed: Yes Vitals/I&O/Wt Last Vital Signs Temp 98.1 F 02/15/22 07:50 Pulse 74 02/15/22 07:50 Resp 16 02/15/22 07:50 BP 107/70 02/15/22 07:50 Pulse Ox 95 02/15/22 07:50 02/14/22 02/15/22 02/15/22 22:59 06:59 14:59 Intake Total 1426.507 / 3698.168 50 / 3748.168 Output Total 780 / 780 1050 / 1830 Balance 646.507 / 2918.168 -1000 / 1918.168 Physical Exam Narrative: General exam is a young white female, no distress Neck is supple Cardiovascular regular rate and rhythm without murmur Lungs clear no wheezes or crackles Abdomen is soft. Positive bowel sounds are noted. Discomfort improved. Surgical scars healing well without drainage Extremities no cyanosis clubbing or edema Data : 02/15/22 04:30 02/15/22 04:30 A&P Assessment and plan (1) Portal vein thrombosis: She was transitioned to Eliquis 10 mg twice daily yesterday with intention to give this 7 days, then 5 mg twice daily secondary to her portal vein and superior mesenteric vein thrombosis. Discussed risks and benefits of anticoagulation. She appears to be tolerating the medication currently. Status: Acute (2) Superior mesenteric vein thrombosis: See above Status: Acute (3) Leukocytosis: Resolved Status: Acute (4) Status post laparoscopic sleeve gastrectomy: Followed by her surgeon, who is the attending Status: Acute (5) Anxiety: Ativan as needed Status: Acute Plan Hypokalemia, supplemented yesterday and normal today. Mild anemia, stable Thank you for this consultation Attestations Medical Necessity Statement*: As per primary Coding Level of Care Code Acute Rubber Extrusion Machine Operator for Angelica Colon Diagnoses Portal vein thrombosis I81 Superior mesenteric vein thrombosis K55.069 Leukocytosis D72.829 Status post laparoscopic sleeve gastrectomy Z98.84 Anxiety F41.9
[2022-02-15] MEDS: apixaban 5 mg Tablet 10 MG PO ×2 (08:24→20:39)
[2022-02-15] MEDS: D5-NS 0.45% + KCL 20 mEq 20 MEQ/1,000 ML BAG 75 MEQ IV (11:54)
[2022-02-15] MEDS: polyethylene glycol 3350 Pkt 17 gm PO (13:10)
[2022-02-15] MEDS: pantoprazole DR 40 mg Tablet PO (17:17)
[2022-02-15] MEDS: oxyCODONE 5 mg IR Tab/Cap PO ×2 (17:39→21:26)
[2022-02-15] MEDS: scopolamine 1.5 Patch 1 PATCH TRANSDERMA (18:37)
[2022-02-16] VITALS (8 sets, daily range): BP systolic 119–137; BP diastolic 79–91; PULSE 81–114; RESP 12–18; TEMP 36.4–36.7; O2SAT 94–98
[2022-02-16] MEDS: D5-NS 0.45% + KCL 20 mEq 20 MEQ/1,000 ML BAG 75 MEQ IV (01:04)
[2022-02-16] MEDS: oxyCODONE 5 mg IR Tab/Cap PO (01:26)
[2022-02-16] MEDS: metoclopramide 5 mg/mL SDV 2 mL IVP (01:26)
[2022-02-16] MEDS: sucralfate 1 gm/10 mL Oral Liq UDC PO ×3 (03:16→15:00)
[2022-02-16 04:55] LABS: Platelet Count 232 10^3/cmm (130-400)
[2022-02-16] MEDS: LORazepam 0.5 mg Tablet 0.25 MG PO (06:16)
[2022-02-16] MEDS: ondansetron 2 mg/ML SDV 2 mL 4 MG IVP (06:16)
--- NOTE | 2022-02-16 06:59 | PC.NURSE ---
Telephone order received from Dr. Reis to add hemoglobin and hematocrit, CMP, and lactate to morning labs.
[2022-02-16 07:37] LABS: Hematocrit 29.6 % (37.0-47.0); Hemoglobin 9.6 g/dL (11.5-15.3)
--- NOTE | 2022-02-16 08:04 | PM.PN ---
Subjective Subjective: Patient is seen and examined today. She feels a whole lot better and denies any vomiting for the past 24 hours. Tolerating protein intake. Seen and evaluated by the hospital dietitian. Hemoglobin and hematocrit stays stable. Adequate urine output and stable vital signs. Requiring no IV pain medications. Continues to pass gas but no bowel movement yet. Medications: Reviewed: Yes Vitals/I&O/Wt Last Vital Signs Temp 97.6 F 02/16/22 07:33 Pulse 81 02/16/22 07:33 Resp 12 02/16/22 07:33 BP 119/79 02/16/22 07:33 Pulse Ox 96 02/16/22 07:33 02/15/22 02/16/22 02/16/22 22:59 06:59 14:59 Intake Total 540 / 1531.25 1000 / 2531.25 Output Total 400 / 400 600 / 1000 Balance 140 / 1131.25 400 / 1531.25 Physical Exam Narrative: Patient is conscious alert oriented X3 No apparent distress BMI 33.3 Head and neck examination PERRLA no masses no cervical lymphadenopathy no jaundice Cardiac examination audible S1-S2 no murmurs no gallops no arrhythmias Chest is clear bilateral,abscence of Rhonchi or wheezes,no surgical emphysema Abdomen not tender soft no organomegaly guarding or rigidity/no signs of peritonitis Bowel sounds are positive Extremities no cyanosis no clubbing no edema Data : 02/16/22 04:20 02/15/22 04:30 A&P Assessment and plan (1) Portal vein thrombosis: Assessment Status post laparoscopic sleeve gastrectomy 02/01/2022. Developed nausea and vomiting over the past couple of days status post ingestion of fried beans and was drinking from a straw, likely she did build bubble of of gas of her gastric conduit and she ended up coming to the ER where CT scan of the abdomen pelvis was done and incidental finding of portal vein thrombosis and mild pancreatitis was detected. Plan of care; Offer the patient glycerin suppository as needed Encourage ambulation Continue to stay adherent to the post bariatric phase 1 diet Plan to discharge home today should the patient continues to do well on p.o. anticoagulation per hospitalist recommendation. I do appreciate the input. We will continue PPI upon discharge Stool softeners Patient's education as well as educating her parents. And other family members Assurance and education All questions have been answered and all concerns have been addressed to patient's satisfaction. Status: Acute (2) Hypercoagulable state: Hematology consultation upon discharge for potential work-up to rule out hypercoagulability status.Potential rule out underlying factor V Leiden deficiency, antiphospholipid syndrome etc. 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
--- NOTE | 2022-02-16 08:08 | P.PN_ITS ---
Subjective Subjective: Luke reports no vomiting in the last 24 hours. She is feeling much better. Much less pain. It appears she may be discharged today. She is passing gas. Medications: Reviewed: Yes Vitals/I&O/Wt Last Vital Signs Temp 97.6 F 02/16/22 07:33 Pulse 81 02/16/22 07:33 Resp 12 02/16/22 07:33 BP 119/79 02/16/22 07:33 Pulse Ox 96 02/16/22 07:33 02/15/22 02/16/22 02/16/22 22:59 06:59 14:59 Intake Total 540 / 1531.25 1000 / 2531.25 Output Total 400 / 400 600 / 1000 Balance 140 / 1131.25 400 / 1531.25 Physical Exam Narrative: General exam is a young white female, no distress, denies any vomiting Neck is supple Cardiovascular regular rate and rhythm without murmur Lungs clear no wheezes or crackles Abdomen is soft. Positive bowel sounds are noted. Discomfort improved. Surgical scars healing well without drainage Extremities no cyanosis clubbing or edema Data : 02/16/22 04:20 02/15/22 04:30 A&P Assessment and plan (1) Portal vein thrombosis: She was transitioned to Eliquis 10 mg twice daily February 14 with intention to give this 7 days, then 5 mg twice daily secondary to her portal vein and superior mesenteric vein thrombosis. Discussed risks and benefits of anticoagulation. She appears to be tolerating the medication currently. Discharge prescription written. 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 Mild anemia, stable Thank you for this consultation Attestations Medical Necessity Statement*: As per primary Coding Level of Care Code Acute Bottom Precipitator Operator for Angelica Colon Diagnoses Portal vein thrombosis I81 Superior mesenteric vein thrombosis K55.069 Leukocytosis D72.829 Status post laparoscopic sleeve gastrectomy Z98.84 Anxiety F41.9
[2022-02-16 08:09] LABS: Alanine Aminotransferase 11 U/L (0-33); Albumin Level 3.4 g/dL (3.5-5.2); Alkaline Phosphatase 63 IU/L (35-105); Anion Gap 15.6 (5-19); Aspartate Amino Transferase 12 U/L (0-32); Blood Urea Nitrogen 2 mg/dL (6-20); Calcium 8.4 mg/dL (8.5-10.5); Carbon Dioxide 23 mmol/L (22-29); Chloride 105 mmol/L (98-107); Globulin 2.2 g/dL (1.3-4.6); Glomerular Filtration Rate 151.6 mL/min (90-130); Glucose 85 mg/dL (65-115); Osmolality Calculated 285 mOsm/kg (285-295); Potassium 3.6 mmol/L (3.5-5.1); Sodium 140 mmol/L (136-145); Total Bilirubin 0.3 mg/dL (0.15-1.2); Total Protein 5.6 g/dL (6.6-8.7)
[2022-02-16] MEDS: apixaban 5 mg Tablet 10 MG PO (09:21)
[2022-02-16] MEDS: polyethylene glycol 3350 Pkt 17 gm PO (09:21)
[2022-02-16 09:28] LABS: Lactate (Lactic Acid level) 0.9 mmol/L (0.5-2.2)
--- NOTE | 2022-02-16 13:11 | PM.DCS ---
Discharge Providers Date of Admission: 02/12/22 16:52 Date of Discharge: February 16, 2022 Attending Provider at Admission: Scooter Reis MD Attending Provider at Discharge: Scooter Reis MD Consults: Dr. Donovan Primary Care Provider: DALIA Virk Diagnoses at Discharge Discharge Diagnosis (1) Portal vein thrombosis: Details from hospital stay: Ms. Luke Cook is a pleasant 26 year old female undergone uneventful laparoscopic vertical sleeve gastrectomy by me on 02/01/2022.? Patient overall hospital course was uneventful except for requirement of additional pain medication at discharge to help her with pain control.? Particularly at the incision sites.? Patient has been tolerating p.o. intake while she was in the hospital and passing gas and she has been on pharmacologic DVT prophylaxis.? Was discharged home on 02/03/2022 and has been followed at the bariatric surgery office on 02/09/2022 and continued to tolerate p.o. intake and stay compliant with her bariatric vitamins as well as appropriate hydration, she did struggle some with her protein intake and yesterday I did receive a phone call from her in the evening saying that she had fried beans and she has been vomiting ever since, were instructed the patient at that point to go back to the post bariatric phase 1 diet.? As it got worse she presented to the ER with vague diffuse abdominal pain associated with nausea and vomiting with no evidence of hematemesis.? And a CT scan of the abdomen pelvis was done with contrast and that did show; 1. Evidence for portal vein thrombosis, with extension into the liver, and also into the upper branches of the superior mesenteric vein. See additional details/discussion above. 2. Suspect possible mucosal/wall thickening in the distal stomach and proximal duodenum, see above discussion. 3. Possibility of mild acute pancreatitis, see above discussion. 4. No free air or significant bowel distention. No evidence for bowel obstruction. 5. Normal appendix. 6. Possible small left intrarenal calculus. No hydronephrosis or visible ureteral calculus. 7. Very small amount of cul-de-sac fluid. No definite abnormal ovarian/adnexal cyst or mass by CT. 8. Other findings discussed above. Dr. Villanueva called me and I came to the ER right away to evaluate the patient.? Patient was seen and evaluated in ER room #13.? Resting with stable vital signs.? Patient reports no history of previous DVT and no previous procedures except for tonsillectomy and as stated on the prior H&P and clinic notes prior to her bariatric surgery.? She does report that her dad had history of DVTs in the past.? But the patient herself never had any blood clot issues never been evaluated by hematology service.? As there was no indication for that. Patient reports that she had a bowel movement yesterday and she is passing gas. I did further discuss the images of the CT scan of the abdomen and pelvis with Dr. Funes radiologist over? [facility] as he confirmed the previously mentioned findings of the portal vein thrombosis and he emphasized that the main trunk is occluded and some haziness around the hepatic flexure of the colon but no pneumatosis or free air and also the splenic vein is well patent.? And it sounded that Dr. Funes is an interventional radiologist and he recommended initially anticoagulation but with the potential to have a tPA via catheter placement by IR if the anticoagulation did not work. Less likely thrombectomy would be warranted.? Also he recommended for potentially getting an ultrasound dedicated to assess the portal venous system instead of repeating CT scans.? So based on this information I tried to get a hold of the hepatobiliary surgery service again over [facility] but that was not successful and subsequently I did discuss with the patient that I would feel safer that the patient would be in a facility where anticoagulation to be continued yet if the patient is not getting better and or repeat imaging shows worsening findings patient may benefit from interventional radiology/open thrombectomy which obviously we do not carry in our facility and the patient will require to be at a higher level of care. I did discuss with Dr. Villanueva ED physician the above updates and he will be working on transferring the patient as we canceled the admission and I will make myself available for any discussion about the transfer.? Patient was also updated that she will require to be in a higher level of care and she agreed on the plan of care. I did update Ms. Cook's mother with status and the recommendation to have her daughter Luke transferred to higher level of care for potential intervention.? And she agreed on that as well.? She did mention that she would prefer [facility] and I told her that I will be working with Dr. Villanueva about a facility where they have this technology and she understands that this facility might not be in [place] and her other preference would be in [facility].? I respected mom's wishes and will work on that but obviously what ever there is an opportunity for transfer to higher level of care will invest in this direction.? And also I did mention to mom that I hope that the anticoagulation that the patient is getting now should sort the matter but if not she will need further interventions. Multiple attempts by Dr. Villanueva ED physician to reach out for different facilities about potential further intervention if needed as he communicated with interventional vascular providers as well as me communicating with hepatobiliary surgeon over [place] he also communicated with the interventional intervention at other facilities and all agreed to keep the patient on anticoagulation and that should take care of the matter.? My initial concern if the patient were to deteriorate and she may need something tPA based we do not offer it at this facility. Ultimately the patient clinically is making appropriate progress, slight elevation of leukocytosis to 13.4 and could be reactive and also a slight drift in H&H where hemoglobin dropped from 12.4-10.5.? Patient maintains stable vital signs.? CMP shows normal lactic acid of 0.7 and liver function tests within normal limits. Patient was able to remove her estrogen based vaginal ring yesterday in the ER per my recommendation. Status: Acute (2) Superior mesenteric vein thrombosis: Details from hospital stay: Patient was started on heparin drip for anticoagulation and once she started to tolerate p.o. intake was switched to Eliquis 10 mg twice daily by hospitalist service. Status: Acute (3) Leukocytosis: Details from hospital stay: Patient was placed empirically on broad-spectrum antibiotics and subsequently on monitoring her leukocytosis got normalized at some point, I do not believe that the patient had an underlying infection but rather dehydration Status: Acute (4) Status post laparoscopic sleeve gastrectomy: Details from hospital stay: Patient resumed her oral intake and post bariatric phase 1 diet was started with the guidance of dietitian. Further recommendations were appreciated. Status: Acute (5) Anxiety: Details from hospital stay: Patient responded to as needed Ativan Status: Acute (6) Portal vein thrombosis: Details from hospital stay: Continue anticoagulation upon discharge Status: Acute (7) Hypercoagulable state: Details from hospital stay: Hematology consultation down the road for further work-up for hypercoagulability status Status: Suspected Permanent problem details: Hematology consultation. (8) Contraception management: Details from hospital stay: Highly recommend to have the patient follow-up with her primary care provider to discuss nonhormonal options for contraception Status: Chronic Permanent problem details: Avoid fro 18-24 months s/p Bariatric surgery, seek effective method. Other Information Additional DC diagnoses/information: CT of the abdomen and pelvis was done that showed 1. Evidence for portal vein thrombosis, with extension into the liver, and also into the upper branches of the superior mesenteric vein. See additional details/discussion above. 2. Suspect possible mucosal/wall thickening in the distal stomach and proximal duodenum, see above discussion. 3. Possibility of mild acute pancreatitis, see above discussion. 4. No free air or significant bowel distention. No evidence for bowel obstruction. 5. Normal appendix. 6. Possible small left intrarenal calculus. No hydronephrosis or visible ureteral calculus. 7. Very small amount of cul-de-sac fluid. No definite abnormal ovarian/adnexal cyst or mass by CT. 8. Other findings discussed above. ? A follow-up ultrasound of the mesenteric duplex was done on 02/13/2022 that showed Liver: Normal. No mass. Gallbladder: Normal. Sludge noted. No gallstones. There is no gallbladder wall thickening. Negative sonographic Ellis's sign. Biliary ducts: Normal. No stones. No dilation. Pancreas: Visualized pancreas is unremarkable. Right kidney: Normal. No mass. No hydronephrosis. Left kidney: Normal. No mass. No hydronephrosis. Spleen: Normal. No splenomegaly. Intraperitoneal space: Trace perihepatic free fluid noted. Aorta: Normal. No aneurysm. Inferior vena cava: Normal. Hepatic veins: Patent hepatic veins. Portal venous: No clear visualization of the portal vein, SMV or IMV. US/US abdomen complete* [id number] IMPRESSION: No clear visualization of the portal vein, SMV and IMV, which given CT findings is concerning for thrombosis. ? Reason for Visit Reason for Visit: N/V Hospital Course Hospital Course Initially upon admission patient did encounter repeated nausea and vomiting but no hematemesis yet she continues to pass gas . Responded to IV fluid resuscitation and heparin drip was continued. Stable vital signs and adequate urine output and patient was started to tolerate p.o. intake slowly under the medication of antinausea and antianxiety. Ultimately the patient had no vomiting and was able to be switched to oral anticoagulation Eliquis 10 mg twice daily with the guidance of the hospitalist service. Repeated labs were appropriate after normalization of the leukocytosis and lactic acid from the start was normal. LFTs were normal as well, patient had a slight drift in H&H but maintain to be stable. And did not require any blood transfusion. Initial admission patient was asked to remove her vaginal estrogen estrogen-based ring and was well educated about the importance to consider nonhormonal based contraception methods. And her fianc? was educated as well. Through the whole entire hospital stay on daily basis patient's mom was included in the education process of the current clinical status and the potential progression of portal venous thrombosis and modes of therapy. And also the expectation with regard to future garcia management in the form of chronic anticoagulation. All questions have been answered to patient's and mom's satisfaction. Patient was very well educated about the importance to continue oral anticoagulation and to monitor for signs of bleeding. Patient verbalized her understanding and cooperation Physical Exam Narrative: Patient is conscious alert oriented X3 No apparent distress BMI 33.3 Head and neck examination PERRLA no masses no cervical lymphadenopathy no jaundice Abdomen not tender soft no organomegaly guarding or rigidity/no signs of peritonitis Extremities no cyanosis no clubbing no edema Discharge Data Studies Completed and Pending Completed Studies During Hospitalization Category Date Time Status CT abdomen pelvis w con* [id number] Urgent Cat Scan 02/12/22 05:30 Completed US abdomen complete* [id number] Urgent Ultrasound 02/13/22 06:37 Completed Pending at discharge Category Date Time Status C DIFF [Clostridioides Difficile PCR] Routine Lab 02/12/22 08:05 Uncollected Radiology Impressions Abdomen/Pelvis CT 02/12/22 05:30 IMPRESSION: 1. Evidence for portal vein thrombosis, with extension into the liver, and also into the upper branches of the superior mesenteric vein. See additional details/discussion above. 2. Suspect possible mucosal/wall thickening in the distal stomach and proximal duodenum, see above discussion. 3. Possibility of mild acute pancreatitis, see above discussion. 4. No free air or significant bowel distention. No evidence for bowel obstruction. 5. Normal appendix. 6. Possible small left intrarenal calculus. No hydronephrosis or visible ureteral calculus. 7. Very small amount of cul-de-sac fluid. No definite abnormal ovarian/adnexal cyst or mass by CT. 8. Other findings discussed above. ADDENDUM: 02/12/22 0737 This report contains findings that may be critical to patient care. I discussed the critical exam findings by phone with Dr Villanueva, at 7:31 AM CDT, 02/12/2022. The findings were acknowledged and understood. They were also instructed to review the provided written report for complete details, and description of other non-critical findings. ADDENDUM: 02/12/22 1004 Request for additional radiological consultation by Dr. Espinosa. Findings were discussed with Dr. Espinosa at 02/12/2022 10:01 AM CDT. Abdomen Ultrasound 02/13/22 06:37 IMPRESSION: No clear visualization of the portal vein, SMV and IMV, which given CT findings is concerning for thrombosis. Laboratory Results WBC 6.2 10^3/uL (4.0-10.0) 02/15/22 04:30 RBC 3.65 10^6/uL (4.1-5.3) L 02/15/22 04:30 Hgb 9.6 g/dL (11.5-15.3) L 02/16/22 04:20 Hct 29.6 % (37.0-47.0) L 02/16/22 04:20 MCV 81.6 fl (81-99) 02/15/22 04:30 MCH 26.8 pg (28.0-34.0) L 02/15/22 04:30 MCHC 32.9 g/dL (30.0-36.0) 02/15/22 04:30 RDW 13.2 % (12.1-15.1) 02/15/22 04:30 Plt Count 232 10^3/cmm (130-400) 02/16/22 04:20 MPV 10.9 fL (7.4-10.4) H 02/15/22 04:30 Neut % (Auto) 63.2 % 02/15/22 04:30 Lymph % (Auto) 23.8 % 02/15/22 04:30 [place] % (Auto) 11.3 % 02/15/22 04:30 Eos % (Auto) 0.8 % 02/15/22 04:30 Baso % (Auto) 0.6 % 02/15/22 04:30 Neut # (Auto) 3.93 10^3/uL (1.8-7.7) 02/15/22 04:30 Lymph # (Auto) 1.5 10^3/uL (0.8-4.8) 02/15/22 04:30 [place] # (Auto) 0.7 10^3/uL (0.2-0.9) 02/15/22 04:30 Eos # (Auto) 0.1 10^3/uL (0.0-0.8) 02/15/22 04:30 Baso # (Auto) 0.0 10^3/uL (0.0-0.1) 02/15/22 04:30 Nucleated RBC % (auto) 0 % 02/15/22 04:30 Nucleated RBCs # 0.0 /100WBC 02/15/22 04:30 PT 15.40 SECONDS (12.1-14.9) H 02/12/22 14:32 INR 1.19 (0.8-1.2) 02/12/22 14:32 APTT 40.8 SECONDS (23.9-36.7) H 02/14/22 20:30 PTT Patient/Normal 1:1 Cancelled 02/13/22 19:10 Sodium 140 mmol/L (136-145) 02/16/22 04:20 Potassium 3.6 mmol/L (3.5-5.1) 02/16/22 04:20 Chloride 105 mmol/L (98-107) 02/16/22 04:20 Carbon Dioxide 23 mmol/L (22-29) 02/16/22 04:20 Anion Gap 15.6 (5-19) 02/16/22 04:20 BUN 2 mg/dL (6-20) L 02/16/22 04:20 Creatinine 0.5 mg/dL (0.5-0.9) 02/16/22 04:20 GFR Calculation 151.6 mL/min (90-130) H 02/16/22 04:20 Glucose 85 mg/dL (65-115) 02/16/22 04:20 Calculated Osmolality 285 mOsm/kg (285-295) 02/16/22 04:20 Lactate 0.9 mmol/L (0.5-2.2) 02/16/22 08:48 Calcium 8.4 mg/dL (8.5-10.5) L 02/16/22 04:20 Total Bilirubin 0.3 mg/dL (0.15-1.2) 02/16/22 04:20 AST 12 U/L (0-32) 02/16/22 04:20 ALT 11 U/L (0-33) 02/16/22 04:20 Alkaline Phosphatase 63 IU/L (35-105) 02/16/22 04:20 C-Reactive Protein 172.5 mg/L (0.0-4.9) H 02/12/22 05:48 Total Protein 5.6 g/dL (6.6-8.7) L 02/16/22 04:20 Albumin 3.4 g/dL (3.5-5.2) L 02/16/22 04:20 Globulin 2.2 g/dL (1.3-4.6) 02/16/22 04:20 Lipase 17 U/L (13-60) 02/14/22 01:09 HCG, Qual Negative (Negative) 02/12/22 09:33 Urine Color Yellow (Yellow) 02/12/22 07:25 Urine Appearance Clear (CLEAR) 02/12/22 07:25 Urine pH 5 (5-7) 02/12/22 07:25 Ur Specific [place] 1.015 (1.005-1.030) 02/12/22 07:25 Urine Protein 1+ (Negative) H 02/12/22 07:25 Urine Glucose (UA) Norm (Normal) 02/12/22 07:25 Urine Ketones 3+ (Negative) H 02/12/22 07:25 Urine Blood 3+ (Negative) H 02/12/22 07:25 Urine Nitrate Negative (Negative) 02/12/22 07:25 Urine Bilirubin 1+ (Negative) H 02/12/22 07:25 Urine Urobilinogen Norm mg/dL (Negative) 02/12/22 07:25 Ur Leukocyte Esterase Negative (Negative) 02/12/22 07:25 Urine RBC 5-10 /hpf (0-2) H 02/12/22 07:25 Urine WBC Rare /hpf (0-5) 02/12/22 07:25 Ur Squamous Epith Cells 10-15 /hpf (0-5) H 02/12/22 07:25 Amorphous Sediment Not Reportable 02/12/22 07:25 Urine Bacteria Trace /hpf (NONE) 02/12/22 07:25 Urine Mucus Trace /hpf 02/12/22 07:25 Procedures Performed Conservative measures Vitals Last Vital Signs Temp 98.0 F 02/16/22 11:04 Pulse 114 H 02/16/22 11:04 Resp 12 02/16/22 11:04 BP 136/81 02/16/22 11:04 Pulse Ox 98 02/16/22 11:04 Discharge Plan Discharge Patient Disposition: Home Condition: Stable Prescriptions: New Eliquis 5 mg tablet 5 mg PO BID Qty: 70 0RF Rx Instructions: 10 mg twice a day for 5 more days, then 5 mg twice daily ondansetron HCl 4 mg tablet 4 mg PO Q6H PRN (Reason: nausea and vomiting) Qty: 30 2RF oxycodone 5 mg tablet 5 mg PO Q6H PRN (Reason: pain) Qty: 28 0RF Carafate 1 gram tablet 1 g PO BID 84 Days Qty: 168 0RF Continued hydrocodone-acetaminophen 5-325 mg tablet 1 tab PO Q6H PRN (Reason: pain) Qty: 28 0RF ondansetron HCl 4 mg tablet 4 mg PO Q8H PRN (Reason: nausea and vomiting) 10 Days Qty: 30 2RF pantoprazole [Protonix] 40 mg tablet,delayed release (DR/EC) 40 mg PO DAILY 30 Days Qty: 30 3RF Transderm-Scop 1 mg over 3 days patch 3 day 1 patch transdermal Q72H Qty: 4 3RF oxycodone 5 mg tablet 5 mg PO Q6H PRN (Reason: pain) Qty: 20 0RF Discontinued NuvaRing 0.12-0.015 mg/24 hr ring 1 vag ring VAGINAL .wear for 3 weeks 90 Days Qty: 3 0RF Discharge Orders: Discharge Order (Routine); Ordered 02/16/22 Ordered By: Scooter Reis Referrals: Scooter Reis MD [Physician] - ([facility] will call you to set up an appointment to be seen in the next 10 days. ) Manpreet Alonzo, STOCK RECEIVER-C [Primary Care Provider] - 02/25/22 9:40 am (Continued follow-up of portal vein thrombosis. Will likely need anticoagulation for 6 months. Will certainly need refill of anticoagulant during this time. ) Marcelino Caraballo MD [Staff Physician] - 2 weeks (Please call 02-17-22 to schedule a hospital follow up appointment for thrombus. ) Discharge Diet: As Directed Discharge Activity: Limit activity as instructed Patient Instructions: Sucralfate (By mouth), Oxycodone/Acetaminophen (By mouth), Ondansetron (By mouth), Apixaban (By mouth), Barrier Methods of Contraception (DC), Venous Thromboembolism (GEN), Nutrition after Bariatric Surgery (GEN), Opioid Safety Activity Restrictions/Additional Instructions: Please follow-up with INSURANCE ADMINISTRATIVE ASSISTANT regarding prevention. 1. Patient can shower .Do not soak in bathtub, swimming pool or hot tub for 4 weeks after surgery. 2.? Leave incisions open to air, do not apply triple antibiotic ointment or medications on the incisions. 3. Up and walking as tolerated Activity 4. Do not lift more than 5 pounds first 2 weeks after surgery and not more than 25 pounds 6 to 8 weeks after surgery. Driving 5. Do not operate heavy machinery or drive while using pain medications Diet Stage 1 When do I start this stage? The day after your surgery (Day 1). You will get to start this stage after you pass the upper GI study and/or methylene blue test. How long will I be on this stage? Day 1 thru day 2 or until you are discharged from the hospital. Goals: ? ? ? Drink 4 to 6 ounces of fluid per hour. ? ? ? Aim for a total of 64 ounces of fluid daily. Add the following food/beverages to your diet: Clear broth or bouillon 100% no sugar added apple, cranberry, or grape juice. Dilute with 1 part juice and 1 part water. No citrus justice (i.e. organe juice, grapefruit juice, etc.) Limit to 8 ounces per or less per day. Tea (do not add milk) Coffee (do not add milk or creamer) Sugar-free gelatin Sugar-free popsicles Sugar-free flavored beverages (Crystal Light?, Sugar-Free Josep-Aid?, Propel?, PowerAde Zero?, Vitamin Water 10?, Fruit?0?, Sob? Lean?, etc.) Artificial sweetener of your choice ? Stage 2 When do I start this stage? Day 3 (or once you are discharged from the hospital) How long will I be on this stage? Day 3 thru Day 13 Goals: ? ? ? Drink 4 to 6 ounces of fluid per hour. ? ? ? Aim for a total of 64 ounces of fluid daily. ? ? ? Aim to meet protein goals with liquid protein supplements Add the following food/beverages to your diet: Protein supplements (thin, water-based supplement may be easier to digest at first while milk-based supplements may feel ``heavy?? and uncomfortable at first) Milk: 1%, skim, light soy milk, or lactose-free milk Pain control Patient was given a prescription for pain Nausea Nausea is common after surgery, take nausea medications as needed and stay on a liquid bland diet until nausea resolves. Breathing Patient was encouraged and was given incentive spirometer to use at home 10 times an hour while awake Call the office at [phone] during office hours or go the Emergency Room after hours for - ?Fever to 100.4 or greater ?Shaking chills ?Pain that increases over time ?Redness, warmth, or pus draining from incision sites ?Persistent nausea or inability to take in liquids Discharge Attestations Time Spent in Discharge Care*: greater than 30 min Specific Discharge Activities: educating patient, educating and/or supporting family/caregiver, documenting/other paperwork and evaluating patient/reviewing data Status at Discharge: Cognitive status at discharge: cognitively intact, Behavioral status at discharge: cooperative, Functional status at discharge: independent ambulation, Overall status at discharge: patient is progressing back to baseline Quality Metrics Clinical Quality Measures [ No reported AMI, CVA or VTE this stay (Patient was admitted because of portal venous thrombosis as a diagnosis, did not develop it during hospital stay)] Coding Level of Care Code Acute Chg FW DC note Diagnoses Portal vein thrombosis I81 Superior mesenteric vein thrombosis K55.069 Leukocytosis D72.829 Status post laparoscopic sleeve gastrectomy Z98.84 Anxiety F41.9 Portal vein thrombosis I81 Hypercoagulable state D68.59 Contraception management Z30.9
== END 2022-02-16 17:00 | disposition home or self-care (01) | DRG 441 ==
LOC: ER 18:13 → MEDSURG 18:15
PROVIDERS: Emergency Medicine; Internal Medicine; Admitting Provider Surgery; Emergency Provider Emergency Medicine; PCP Nurse Practitioner; Visit Provider Surgery
DX: I81 Portal vein thrombosis (principal); K55.059 Acute (reversible) ischemia of intestine, part and extent unspecified; K85.90 Acute pancreatitis without necrosis or infection, unspecified; E87.2 Acidosis; D68.59 Other primary thrombophilia; F41.9 Anxiety disorder, unspecified; Z98.84 Bariatric surgery status; G43.709 Chronic migraine without aura, not intractable, without status migrainosus; E66.9 Obesity, unspecified; Z68.33 Body mass index [BMI] 33.0-33.9, adult; E87.6 Hypokalemia; D64.9 Anemia, unspecified; R11.2 Nausea with vomiting, unspecified; Z79.891 Long term (current) use of opiate analgesic
CPT/HCPCS: 36415; 74177; 76700; 80053; 81001; 83605; 83690; 84703; 85014; 85018; 85025; 85049; 85610; 85730; 86140; 96365; 96372; 96375; 96376; 99285; C9113; J1170; J1644; J2270; J2405; J2543; J2550; J2765; J3480; J7030; Q9967

== ENCOUNTER 2022-02-21 12:32 | Inpatient (IN) | payer OTHER, SELFPAY ==
[2022-02-21] VITALS (15 sets, daily range): BP systolic 109–139; BP diastolic 76–89; PULSE 79–98; RESP 16–20; TEMP 36.8–36.9; O2SAT 95–100; BMI 31.1
--- NOTE | 2022-02-21 14:55 | USR_ITS ---
PROCEDURE INFORMATION: Exam: US Nonobstetric Pelvis; Complete Exam date and time: 02/21/2022 3:58 PM Age: 26 years old Clinical indication: Other: Heavy vag bleeding; Patient HX: Gastric sleeve with portal clot. Please see CT; Additional info: Heavy vaginal bleeding and cramping TECHNIQUE: Imaging protocol: Transabdominal pelvic nonobstetric ultrasound. Complete exam. Real time ultrasound with image documentation. COMPARISON: CT abdomen pelvis wo con [id number] 02/21/2022 3:56 PM FINDINGS: Uterus: Uterus measures 5.9 x 3.7 x 3.3 cm. No uterine mass. Endometrial stripe thickness measures 1 cm. Right ovary/adnexa: Right ovary measures 2.3 x 4.3 x 3.8 cm. Numerous peripheral ovarian follicles noted. Normal blood flow. Left ovary/adnexa: Left ovary measures by 2.3 x 4.6 x 2.8 cm. Numerous peripheral ovarian follicles noted. Normal blood flow. Intraperitoneal space: Small volume free fluid around the left ovary, likely physiologic. Urinary bladder: Normal. US/US pelvic with transvaginal IMPRESSION: 1. No acute findings. 2. Enlarged ovaries with multiple ovarian follicles. Correlate clinically for signs of polycystic ovarian syndrome.
[2022-02-21 14:56] LABS: Basophils # 0.1 10^3/uL (0.0-0.1); Basophils % 0.9 %; Eosinophils # 0.1 10^3/uL (0.0-0.8); Eosinophils % 1.1 %; Hematocrit 37.8 % (37.0-47.0); Hemoglobin 11.8 g/dL (11.5-15.3); Lymphocytes # 1.8 10^3/uL (0.8-4.8); Lymphocytes % 32.6 %; Mean Corpuscular HGB Conc 31.2 g/dL (30.0-36.0); Mean Corpuscular Hemoglobin 25.7 pg (28.0-34.0); Mean Corpuscular Volume 82.4 fl (81-99); Mean Platelet Volume 10.2 fL (7.4-10.4); Monocytes # 0.6 10^3/uL (0.2-0.9); Monocytes % 10.2 %; Neutrophils # 3.02 10^3/uL (1.8-7.7); Nucleated Red Blood Cells % 0 %; Platelet Count 410 10^3/cmm (130-400); Red Blood Count 4.59 10^6/uL (4.1-5.3); Red Cell Distribution Width 13.5 % (12.1-15.1); White Blood Count 5.5 10^3/uL (4.0-10.0)
--- NOTE | 2022-02-21 14:56 | ED_ITS ---
Documented by User: SAMANTHA Novoa 02/21/22 17:03 HPI - Female Genitourinary General: Chief complaint: Vaginal Bleeding Stated complaint: vaginal bleeding/passing clots/weakness/nausea Time Seen by Provider: 02/21/22 14:37 History of Present Illness: Patient is a 26-year-old female comes to the ED with heavy vaginal bleeding, nausea, weakness and cramping. Patient had gastric sleeve surgery performed on February 01 and then came to the ED back on February 12 for acute nausea and vomiting and a CT was performed and it showed that she had a portal vein thrombosis. She was admitted and put on a heparin drip. She was also started on Eliquis and discharged home. She says she started developing heavy vaginal bleeding the day she was discharged. She states that her period is currently about a week early. She is having heavy bleeding and says she goes through 2 heavy pads at night. She reports passing a lot of clots as well. Endorses some mild abdominal cramping pain. Denies any fevers. Endorses nausea, but has not had any emesis since that she was discharged from hospital. With the heavy bleeding she is starting to feel generalized weakness as well. She states she has an appointment with her PCP tomorrow. Associated symptoms: Reports abdominal pain (Mild abdominal pain) and nausea; Deny headache(s) Review of Systems Const: Denies: fever(s), chills or fatigue Eyes: Denies: change in vision or eye discomfort ENMT: Denies: throat pain, odynophagia, nasal discharge or nasal congestion Card: Denies: chest pain, palpitations, edema, swelling of feet/ankles, dyspnea on exertion or orthopnea Resp: Denies: dyspnea, productive cough or non-productive cough GI: Reports: abdominal pain (Mild abdominal pain) and nausea; Denies: vomiting, diarrhea, constipation or hematochezia : Reports: vaginal bleeding and pelvic pain (Cramping pain); Denies: flank pain, dysuria or hematuria Musc: Denies: neck pain, back pain or extremity swelling Skin/Breast: Denies: rash or new lesions Neuro: Denies: headache(s), numbness in extremities or weakness in extremities [facility] ED PFSH: Medical History (Updated 03/01/22 @ 07:05 by Hema L Horstman, DO) Chronic migraine Hypercoagulable state Hematology consultation. No pertinent past medical history Denies diabetes, asthma, hypertension, seizures, DVT/PE in the past prior to portal vein thrombus in February 2022. Portal vein thrombosis 02/2022---1 week status post surgery and using NuvaRing Surgical History (Updated 02/23/22 @ 07:34 by Kathy Finnegan MD) History of tonsillectomy and adenoidectomy age 5 Status post laparoscopic sleeve gastrectomy 02/01/2022---[facility] [place] Family History (Updated 02/23/22 @ 07:35 by Kathy Finnegan MD) Father History of DVT (deep vein thrombosis) Other Cancer Diabetes Heart disease Hypertension Social History Smoking and tobacco status: never smoked Second hand smoke exposure: No Smoking risk assessment/counseling performed?: No Alcohol intake: current Alcohol intake frequency: holidays/special occasions only Desire information about alcohol rehabilitation?: No Counseling given: No Desire information about substance/drug rehabilitation?: No Counseling given: No Adopted: No Caregiver/support person: No Lives independently: Yes Household members: significant other Housing: House Marital status: Single Number of children: 0 service: No Current occupational status: employed Current occupation: [employer] [place] History of recent travel: No Sexually active: Yes Current gender identity: Female Physical Exam Const: COMMON NORMALS: patient oriented x3 and alert GENERAL APPEARANCE: cooperative HENMT: COMMON NORMALS: normocephalic HEAD & SCALP: normocephalic MOUTH: Normal oral and palatal mucosa present THROAT: posterior oropharynx normal and uvula midline Neck/C-Spine: COMMON NORMALS: supple GENERAL: Yes normal visual inspection Resp: COMMON NORMALS: normal respiratory effort, No retractions, No use of accessory muscles and clear to auscultation bilaterally AUSCULTATION: clear to auscultation bilaterally Cardio: COMMON NORMALS: regular rate, regular rhythm, S1 normal heart sound present, S2 normal heart sound present, No gallops present (Cardio), No clicks present (Cardio), No murmurs present (Cardio) and Peripheral pulses 2+ throughout RATE: regular rate RHYTHM: regular rhythm HEART SOUNDS: S1 normal heart sound present and S2 normal heart sound present PERIPHERAL PULSES: Peripheral pulses 2+ throughout GI: COMMON NORMALS: Normal to inspection, nondistended, normoactive bowel sounds present, Soft to palpation and no masses PALPATION: Yes Soft to palpation and Yes Tenderness to palpation present (GI) (Mild generalized tenderness throughout abdomen.) : COMMON NORMALS: Yes no CVA tenderness BLADDER/KIDNEY EXAM: Yes no CVA tenderness Back/Pelvis: COMMON NORMALS: no CVA tenderness Extremity: COMMON NORMALS: normal to inspection and no pedal edema Neuro: COMMON NORMALS: patient oriented x3 and moves all extremities SENSORIUM/ORIENTATION: Yes alert Skin: GENERAL SKIN EXAM: dry skin Course Vital Signs: Vital signs: Vital Signs Temperature 97.9 F 02/24/22 12:00 Pulse Rate 94 02/24/22 12:00 Respiratory Rate 13 02/24/22 12:00 Blood Pressure 118/72 02/24/22 12:00 Pulse Oximetry 98 02/24/22 12:00 [facility] - Female Medical Decision Making Patient is a 26-year-old female comes to the ED with vaginal bleeding and abdominal cramping and nausea. I performed the initial history physical exam and lab work-up of patient. She had an elevated lipase level of 296. CT of abdomen pelvis showed suspected mild pancreatitis. I talked with Dr. Phillips about patient case given her history of a recent portal vein thrombosis, gastric sleeve surgery on February 01 he recommended having her admitted to the hospital. Dr. Phillips will be taking over patient case and setting up her admission. Lab Data I reviewed the patient's lab results. : 02/24/22 05:09 02/24/22 05:09 Radiology Impressions Pelvic/Transvag US 02/21/22 14:55 IMPRESSION: 1. No acute findings. 2. Enlarged ovaries with multiple ovarian follicles. Correlate clinically for signs of polycystic ovarian syndrome. Abdomen Ultrasound 02/22/22 07:39 IMPRESSION: 1. No distended gallbladder with a large amount of sludge. No bile duct dilatation. 2. Poor visualization of flow in the portal vein suspicious for portal vein thrombosis as previously described. Portal vein thrombosis was identified on 02/12/2022 CT. Continued portal vein thrombosis. The overall extent cannot be determined by ultrasound. Abdomen/Pelvis CT 02/22/22 15:11 IMPRESSION: 1. No acute finding. SMV and portal vein thrombosis are again noted, similar to that present on the 02/12/2022 exam. 2. No lymphadenopathy. 3. Nonobstructing left kidney renal stone. Laboratory Results WBC 5.5 10^3/uL (4.0-10.0) 02/21/22 14:45 RBC 4.59 10^6/uL (4.1-5.3) 02/21/22 14:45 Hgb 11.8 g/dL (11.5-15.3) 02/21/22 14:45 Hct 37.8 % (37.0-47.0) 02/21/22 14:45 MCV 82.4 fl (81-99) 02/21/22 14:45 MCH 25.7 pg (28.0-34.0) L 02/21/22 14:45 MCHC 31.2 g/dL (30.0-36.0) 02/21/22 14:45 RDW 13.5 % (12.1-15.1) 02/21/22 14:45 Plt Count 410 10^3/cmm (130-400) H 02/21/22 14:45 MPV 10.2 fL (7.4-10.4) 02/21/22 14:45 Neut % (Auto) 55.0 % 02/21/22 14:45 Lymph % (Auto) 32.6 % 02/21/22 14:45 Josephine % (Auto) 10.2 % 02/21/22 14:45 Eos % (Auto) 1.1 % 02/21/22 14:45 Baso % (Auto) 0.9 % 02/21/22 14:45 Neut # (Auto) 3.02 10^3/uL (1.8-7.7) 02/21/22 14:45 Lymph # (Auto) 1.8 10^3/uL (0.8-4.8) 02/21/22 14:45 Josephine # (Auto) 0.6 10^3/uL (0.2-0.9) 02/21/22 14:45 Eos # (Auto) 0.1 10^3/uL (0.0-0.8) 02/21/22 14:45 Baso # (Auto) 0.1 10^3/uL (0.0-0.1) 02/21/22 14:45 Nucleated RBC % (auto) 0 % 02/21/22 14:45 Nucleated RBCs # 0.0 /100WBC 02/21/22 14:45 PT 25.80 SECONDS (12.1-14.9) H 02/21/22 14:45 INR 2.32 (0.8-1.2) H 02/21/22 14:45 APTT 47.9 SECONDS (23.9-36.7) H 02/21/22 14:45 Sodium 141 mmol/L (136-145) 02/21/22 14:45 Potassium 4.0 mmol/L (3.5-5.1) 02/21/22 14:45 Chloride 101 mmol/L (98-107) 02/21/22 14:45 Carbon Dioxide 19 mmol/L (22-29) L 02/21/22 14:45 Anion Gap 25.0 (5-19) H 02/21/22 14:45 BUN 7 mg/dL (6-20) 02/21/22 14:45 Creatinine 0.6 mg/dL (0.5-0.9) 02/21/22 14:45 GFR Calculation 122.8 mL/min (90-130) 02/21/22 14:45 Glucose 70 mg/dL (65-115) 02/21/22 14:45 Calculated Osmolality 288 mOsm/kg (285-295) 02/21/22 14:45 Calcium 10.0 mg/dL (8.5-10.5) 02/21/22 14:45 Total Bilirubin 0.4 mg/dL (0.15-1.2) 02/21/22 14:45 AST 23 U/L (0-32) 02/21/22 14:45 ALT 21 U/L (0-33) 02/21/22 14:45 Alkaline Phosphatase 78 IU/L (35-105) 02/21/22 14:45 Total Protein 8.8 g/dL (6.6-8.7) H 02/21/22 14:45 Albumin 4.7 g/dL (3.5-5.2) 02/21/22 14:45 Globulin 4.1 g/dL (1.3-4.6) 02/21/22 14:45 Lipase 296 U/L (13-60) H 02/21/22 14:45 HCG, Qual Negative (Negative) 02/21/22 14:45 Discharge Plan Discharge Patient Disposition: Admitted As Inpatient Admit Provider: Erma Somers Clinical Impression: Pancreatitis, Portal vein thrombosis Condition: Stable Discharge Activity: Resume usual activity Sign Out Sign Out Data: Patient Sign Out occurred on 02/21/22 at 17:13. Patient's care was discussed, and care was transferred from to Hema Phillips DO. Coding Level of Care Code ED Manager Human Resources for Chg Fwd Exam Comprehensive Documented by User: Hema Phillips DO 03/01/22 07:05 HPI - Female Genitourinary General: Chief complaint: Vaginal Bleeding Stated complaint: vaginal bleeding/passing clots/weakness/nausea Time Seen by Provider: 02/21/22 14:37 [facility] ED PFSH: Medical History (Updated 03/01/22 @ 07:05 by Hema Phillips DO) Chronic migraine Hypercoagulable state Hematology consultation. No pertinent past medical history Denies diabetes, asthma, hypertension, seizures, DVT/PE in the past prior to portal vein thrombus in February 2022. Portal vein thrombosis 02/2022---1 week status post surgery and using NuvaRing Surgical History (Updated 02/23/22 @ 07:34 by Kathy Finnegan MD) History of tonsillectomy and adenoidectomy age 5 Status post laparoscopic sleeve gastrectomy 02/01/2022---[facility] [place] Family History (Updated 02/23/22 @ 07:35 by Kathy Finnegan MD) Father History of DVT (deep vein thrombosis) Other Cancer Diabetes Heart disease Hypertension Social History Smoking and tobacco status: never smoked Second hand smoke exposure: No Smoking risk assessment/counseling performed?: No Alcohol intake: current Alcohol intake frequency: holidays/special occasions only Desire information about alcohol rehabilitation?: No Counseling given: No Desire information about substance/drug rehabilitation?: No Counseling given: No Adopted: No Caregiver/support person: No Lives independently: Yes Household members: significant other Housing: House Marital status: Single Number of children: 0 service: No Current occupational status: employed Current occupation: [employer] [place] History of recent travel: No Sexually active: Yes Current gender identity: Female Course Vital Signs: Vital signs: Vital Signs Temperature 97.9 F 02/24/22 12:00 Pulse Rate 94 02/24/22 12:00 Respiratory Rate 13 02/24/22 12:00 Blood Pressure 118/72 02/24/22 12:00 Pulse Oximetry 98 02/24/22 12:00 [facility] - Female Medical Decision Making Patient is a 26-year-old female comes to the ED with vaginal bleeding and abdominal cramping and nausea. I performed the initial history physical exam and lab work-up of patient. She had an elevated lipase level of 296. CT of abdomen pelvis showed suspected mild pancreatitis. I talked with Dr. Phillips about patient case given her history of a recent portal vein thrombosis, gastric sleeve surgery on February 01 he recommended having her admitted to the hospital. Dr. Phillips will be taking over patient case and setting up her admission. Chart reviewed. Evaluated patient agree with history and exam on the chart. Orders written. Medical Records I reviewed the patient's medical records. Lab Data : 02/24/22 05:09 02/24/22 05:09 Radiology Impressions Pelvic/Transvag US 02/21/22 14:55 IMPRESSION: 1. No acute findings. 2. Enlarged ovaries with multiple ovarian follicles. Correlate clinically for signs of polycystic ovarian syndrome. Abdomen Ultrasound 02/22/22 07:39 IMPRESSION: 1. No distended gallbladder with a large amount of sludge. No bile duct dilatation. 2. Poor visualization of flow in the portal vein suspicious for portal vein thrombosis as previously described. Portal vein thrombosis was identified on 02/12/2022 CT. Continued portal vein thrombosis. The overall extent cannot be determined by ultrasound. Abdomen/Pelvis CT 02/22/22 15:11
[2022-02-21 15:16] LABS: INR 2.32 (0.8-1.2)
[2022-02-21 15:18] LABS: Partial Thromboplastin Time 47.9 SECONDS (23.9-36.7)
[2022-02-21] MEDS: ondansetron 2 mg/ML SDV 2 mL 4 MG IVP (15:20)
[2022-02-21] MEDS: sodium chloride 0.9% 1,000 ML 999 ML IV (15:20)
[2022-02-21 15:24] LABS: Alanine Aminotransferase 21 U/L (0-33); Albumin Level 4.7 g/dL (3.5-5.2); Alkaline Phosphatase 78 IU/L (35-105); Aspartate Amino Transferase 23 U/L (0-32); Blood Urea Nitrogen 7 mg/dL (6-20); Carbon Dioxide 19 mmol/L (22-29); Chloride 101 mmol/L (98-107); Globulin 4.1 g/dL (1.3-4.6); Glomerular Filtration Rate 122.8 mL/min (90-130); Glucose 70 mg/dL (65-115); Lipase 296 U/L (13-60); Osmolality Calculated 288 mOsm/kg (285-295); Sodium 141 mmol/L (136-145); Total Bilirubin 0.4 mg/dL (0.15-1.2); Total Protein 8.8 g/dL (6.6-8.7)
[2022-02-21 15:31] LABS: HCG, Serum Qual Negative (Negative)
--- NOTE | 2022-02-21 15:41 | CTR_ITS ---
PROCEDURE INFORMATION: Exam: CT Abdomen And Pelvis Without Contrast Exam date and time: 02/21/2022 3:56 PM Age: 26 years old Clinical indication: Nausea and vomiting; Prior surgery; Surgery date: <1 month; Surgery type: Gastric sleeve; Additional info: N/v, mild abdom pain, lipase 296 TECHNIQUE: Imaging protocol: Computed tomography of the abdomen and pelvis without contrast. Radiation optimization: All CT scans at this facility use at least one of these dose optimization techniques: automated exposure control; mA and/or kV adjustment per patient size (includes targeted exams where dose is matched to clinical indication); or iterative reconstruction. COMPARISON: CT abdomen pelvis w con* [id number] 02/12/2022 6:17 AM RADIATION DOSE METRICS: Total DLP (mGy-cm): 1773.57 FINDINGS: Liver: Normal. No mass. Gallbladder and bile ducts: Normal. No calcified stones. No ductal dilation. Pancreas: Mild inflammatory changes surrounding the pancreas. Questionable mild pancreatitis on this noncontrast examination. Spleen: Normal. No splenomegaly. Adrenal glands: Normal. No mass. Kidneys and ureters: 2 mm nonobstructing left renal stone. No right renal calcifications. Stomach and bowel: Scattered colonic diverticula. No evidence of acute diverticulitis. Appendix: Unremarkable right lower quadrant appendix. Intraperitoneal space: Unremarkable. No free air. No significant fluid collection. Vasculature: There is increased density seen within the portal vein at its confluence. Questionable thrombosis in correlation with the previous study. Lymph nodes: Questionable celiac axis lymph node image 11/14 measuring 16 x 17 mm with a hypodense area in it questionably necrotic. Urinary bladder: Unremarkable as visualized. Reproductive: Unremarkable as visualized. Bones/joints: Unremarkable. No acute fracture. Soft tissues: Unremarkable. Other findings: Stable post bariatric surgery. Inflammatory changes again identified questionably postoperative or post stroke are related involving left and right anterior abdominal wall. CT/CT abdomen pelvis wo con [id number] IMPRESSION: 1. Suspect mild pancreatitis. 2. Suspect portal venous thrombosis. 3. Nephrolithiasis without hydronephrosis. 4. Postop and postop related changes. 5. Possible new celiac axis lymph node.
--- NOTE | 2022-02-21 18:43 | P.HP_ITS ---
Providers/Chief Complaint Primary Care Provider: AMAURY VirkC Chief Complaint: vaginal bleeding/passing clots/weakness/nausea History of Present Illness Luke Cook is a 26 year old female with history of portal vein thrombosis, hypercoagulable work-up has been initiated by heading and priming operator, she has history of gastric bypass, celiac axis lymphadenopathy, presented with chief complaint of worsening vaginal bleeding. Patient is stating that since her gastric bypass she has been experiencing multiple complications such as protuberant thrombosis, recurrent emesis, she is on liquid diet. She was discharged on 02/16 after cyclical vomiting management. Patient primary concern is vaginal bleeding. Since initiation of Eliquis she is noticing heavy periods. She was concerned and wanted to get it checked. In the ER she was diagnosed with pancreatitis, transvaginal ultrasound did show regular menstrual flow, endometrial thickening, polycystic ovaries. Abdominal CT scan revealed pancreatitis portal vein thrombosis nephrolithiasis without hydronephrosis, celiac axis lymphadenopathy, questionable necrotic lymph node Patient is stating that since her discharge from the hospital she did not experience any episode of emesis, she was experiencing dry heaves and retching with nausea she avoided to increase her liquid diet to prevent emesis. She is endorsing dehydration. No diarrhea. No recent use of antibiotics. She does not smoke or drink alcohol. Review of Systems Const: Denies: fever(s) Eyes: Denies: change in vision ENMT: Denies: throat pain Card: Denies: chest pain Resp: Denies: dyspnea GI: Reports: abdominal pain : Denies: flank pain Musc: Denies: neck pain Skin/Breast: Denies: rash Neuro: Denies: headache(s) Psych: Denies: anxiety Endo: Denies: polyuria Lawson/Lymph: Denies: easy bruising All/Imm: Denies: urticaria Medications/Allergies Home Medications Medication Instructions Recorded Confirmed Last Taken Type hydrocodone 5 mg-acetaminophen 325 1 tab PO Q6H PRN #28 tab 02/02/22 02/21/22 Unknown Rx mg tablet pantoprazole 40 mg tablet,delayed 40 mg PO DAILY 30 Days #30 tab 02/03/22 02/21/22 02/21/22 Rx release (Protonix) ondansetron HCl 4 mg tablet 4 mg PO Q6H PRN #30 tab 02/16/22 02/21/22 Unknown Rx oxycodone 5 mg tablet 5 mg PO Q6H PRN #20 tab 02/16/22 02/21/22 Unknown Rx sucralfate 1 gram tablet (Carafate) 1 g PO BID 84 Days #168 tab 02/16/22 02/21/22 02/21/22 Rx apixaban 5 mg tablet (Eliquis) See Rx Instructions .ROUTE .COMPLEX 02/21/22 02/21/22 02/21/22 History 10 MG AM DOSE czgnjtzi-[id number] 45 mg-folic 1 cap PO DAILY 02/21/22 02/21/22 02/21/22 History acid 800 mcg-vit K 120 mcg capsule (Bariatric Multivitamins) Allergies Allergy/AdvReac Type Severity Reaction Status Date / Time morphine Allergy ADR-Vomitin Verified 02/21/22 17:10 g PFSH Acute PFSH: Medical History Anxiety Chronic migraine Contraception management Avoid fro 18-24 months s/p Bariatric surgery, seek effective me thod. Encounter for surveillance of nuvaring Hypercoagulable state Hematology consultation. Obesity (BMI 30-39.9) Portal vein thrombosis Portal vein thrombosis Superior mesenteric vein thrombosis Surgical History History of tonsillectomy and adenoidectomy age 5 Status post laparoscopic sleeve gastrectomy Family History Other Cancer Diabetes Heart disease Hypertension Social History Smoking and tobacco status: never smoked Second hand smoke exposure: No Smoking risk assessment/counseling performed?: No Alcohol intake: current Alcohol intake frequency: holidays/special occasions only Desire information about alcohol rehabilitation?: No Counseling given: No Desire information about substance/drug rehabilitation?: No Counseling given: No Adopted: No Caregiver/support person: No Lives independently: Yes Household members: significant other Housing: House Marital status: Single Number of children: 0 service: No Current occupational status: employed Current occupation: [employer] History of recent travel: No Sexually active: Yes Current gender identity: Female Vitals/I&O/Wt Last Vital Signs Temp 98.5 F 02/21/22 13:17 Pulse 79 02/21/22 16:00 Resp 20 H 02/21/22 13:17 BP 122/76 02/21/22 16:00 Pulse Ox 98 02/21/22 16:00 Weight last 48 hrs Weight 84.822 kg Physical Exam Narrative: Young female Currently not in any active chest pain or abdominal pain Abdomen is soft No signs of peritonitis Surgical wound is healing Mild tenderness in midepigastric region Patient does look slightly dehydrated Pale complexion No active chest pain Surgeon well on room air Nonfocal neuro exam EOMI, PERRLA Data : 02/21/22 14:45 02/21/22 14:45 A&P Assessment and plan (1) Pancreatitis: Status: Acute Qualifiers: Acute pancreatitis complication: no infection or necrosis Chronicity: acute Pancreatitis type: unspecified pancreatitis type Qualified Code(s): K85.90 - Acute pancreatitis without necrosis or infection, unspecified (2) Menorrhagia: Status: Acute (3) Polycystic ovaries: Status: Acute (4) Metabolic acidosis: Status: Acute Plan Pancreatitis Check triglyceride level A1c level Gastric bypass postop complications? She does not drink alcohol, non-smoker No recent use of antibiotics Conservative management N.p.o. Dilaudid for analgesia Does not respond to morphine Check lipase level in the morning Monitor for any signs of necrotic pancreas Necrotic lymph not concerned on CT abdomen pelvis She is afebrile Check ketones and lactic acid, no leukocytosis, Menorrhagia, could be related to polycystic ovaries and use of Eliquis Transvaginal ultrasound is unremarkable Would recommend outpatient ASSISTANT COMMUNITY MANAGER consult She is on liquid diet at home since gastric bypass At Dilaudid Full code N.p.o. Father is at the bedside Attestations Medical Necessity Statement*: [facility] to cross more than 2 midnights Time Spent in Patient Care: 35 Coding Level of Care Code Acute Doctor Chiropractic for [facility] Fw Diagnoses Pancreatitis K85.90 Acute pancreatitis complication: no infection or necrosis Chronicity: acute Pancreatitis type: unspecified pancreatitis type Menorrhagia N92.0 Polycystic ovaries E28.2 Metabolic acidosis E87.2
[2022-02-21 19:31] LABS: Ketone (Acetest) Serum Positive (Negative)
[2022-02-21 19:32] LABS: Triglycerides 101 mg/dL (0-150)
[2022-02-21 19:33] LABS: Lactate (Lactic Acid level) 0.9 mmol/L (0.5-2.2)
[2022-02-21 20:14] LABS: Estmated Average Glucose 91; Hemoglobin A1C 4.8 % (4.0-6.0)
[2022-02-21] MEDS: HYDROmorphone 1 mg/mL INJ 1 mL 0.2 MG IVP (23:21)
[2022-02-21] MEDS: lactated ringers 1,000 ML 150 ML IV (23:21)
[2022-02-21] MEDS: pantoprazole 40 mg SDV IVP (23:21)
[2022-02-21] MEDS: apixaban 5 mg Tablet 10 MG PO (23:22)
[2022-02-22] VITALS (9 sets, daily range): BP systolic 100–126; BP diastolic 64–82; PULSE 74–91; RESP 14–17; TEMP 36.6–37.2; O2SAT 96–100
[2022-02-22] MEDS: ondansetron 2 mg/ML SDV 2 mL 4 MG IVP ×2 (05:14→11:49)
[2022-02-22] MEDS: HYDROmorphone 1 mg/mL INJ 1 mL 0.2 MG IVP ×3 (05:14→21:54)
[2022-02-22 05:25] LABS: Basophils % 0.9 %; Eosinophils # 0.1 10^3/uL (0.0-0.8); Eosinophils % 2.3 %; Hemoglobin 8.8 g/dL (11.5-15.3); Lymphocytes # 1.8 10^3/uL (0.8-4.8); Lymphocytes % 42.6 %; Mean Corpuscular HGB Conc 31.4 g/dL (30.0-36.0); Mean Corpuscular Hemoglobin 25.9 pg (28.0-34.0); Mean Corpuscular Volume 82.4 fl (81-99); Monocytes # 0.6 10^3/uL (0.2-0.9); Monocytes % 14.4 %; Neutrophils % 39.6 %; Nucleated Red Blood Cells % 0 %; Platelet Count 242 10^3/cmm (130-400); Red Cell Distribution Width 13.5 % (12.1-15.1); White Blood Count 4.3 10^3/uL (4.0-10.0)
[2022-02-22 05:47] LABS: Alanine Aminotransferase 16 U/L (0-33); Albumin Level 3.4 g/dL (3.5-5.2); Alkaline Phosphatase 56 IU/L (35-105); Anion Gap 20.1 (5-19); Aspartate Amino Transferase 18 U/L (0-32); Blood Urea Nitrogen 5 mg/dL (6-20); Carbon Dioxide 19 mmol/L (22-29); Chloride 104 mmol/L (98-107); Globulin 2.8 g/dL (1.3-4.6); Glomerular Filtration Rate 151.6 mL/min (90-130); Glucose 68 mg/dL (65-115); Lipase 244 U/L (13-60); Magnesium 1.9 mg/dL (1.7-2.3); Osmolality Calculated 284 mOsm/kg (285-295); Potassium 4.1 mmol/L (3.5-5.1); Sodium 139 mmol/L (136-145); Total Bilirubin 0.3 mg/dL (0.15-1.2); Total Protein 6.2 g/dL (6.6-8.7)
[2022-02-22 05:59] LABS: Slide Review Slide Review Perform
--- NOTE | 2022-02-22 07:39 | US_ITS ---
WS: [id number] RIGHT UPPER QUADRANT ULTRASOUND HISTORY: evaluate hepatobiliary area COMPARISON: 02/13/2022 Liver: 12.2 cm in length. Normal size liver. No bile duct dilatation or mass. Portal Vein: Portal vein is not well identified. Very limited flow suspicious for portal vein thrombo sis as previously indicated. Gallbladder: Normally distended gallbladder with a large amount of sludge. No stones are identified. CBD: 0.4 cm Pancreas: Poorly visualized but does appear edematous and enlarged. Right kidney: 9.8 cm in length. Normal size and echogenicity. No hydronephrosis or mass. Aorta and IVC: IVC is limited visualization. Normal aorta. No ascites. US/US abdomen limited [id number] IMPRESSION: 1. No distended gallbladder with a large amount of sludge. No bile duct dilata tion. 2. Poor visualization of flow in the portal vein suspicious for portal vein th rombosis as previously described. Portal vein thrombosis was identified on 02/12 CT. Continued portal vein thrombosis. The overall extent cannot be determ ined by ultrasound.
[2022-02-22] MEDS: iron polysaccharide complex 150 mg Capsule PO (09:18)
[2022-02-22] MEDS: sucralfate 1 gm Tablet PO ×2 (09:18→20:50)
[2022-02-22] MEDS: apixaban 5 mg Tablet 10 MG PO (09:31)
--- NOTE | 2022-02-22 10:39 | PC.CHAP ---
Pastoral Care Encounter/Spiritual Assessment Type of Contact [] Declined computational biologist visit [] Patient/Family/Request visit [] Outpatient visit [] Follow-up visit [] Physician referral [] Code/Alert [x] Routine visit [] Staff referral [] Actively dying [] Patient sleeping [] Family support [] [] Out of room [] Palliative care [] [x] Receiving care in room [] Pre-surgical visit [] Trauma [] Long length of stay [] ICU visit [] Other: Relational/Emotional Strength [] Patient feels connected with others/family/visitors/staff [] Distress [] Loneliness/isolation [] Abandonment Spirituality of Patient [] Person of Radha [] Attends Holiness of their Radha [] Believes in Prayer [] Reads Bible or Yarsanism materials [] There are Spiritual issues to be addressed Photographic Artist Interventions [] Prayer [] Active listening [] Non-anxious presence [] Spiritual/emotional support [] Crisis/trauma care [] Spiritual counseling [] Bereavement support [] Provided bereavement packet [] Provided Bible/devotional materials [] Provided toy/stuffed animal, coloring book to patient or family member [] Provided Communion [] Anointing/[place] [] Salvation [] Completed spiritual assessment [] Other: Impact on Illness or Injury [] Angry [] Fearful [] Anxious [] Often cries [] Exhaustion [] Unable to work [] Unable to attend adventism [] Unable to walk/stand [] Unable to read [] Unable to drive [] Unable to eat/drink [] Unable to sleep [] Unable to be with family [] Patient intubated [] Other: Summary Time spent with patient
[2022-02-22] MEDS: lactated ringers 1,000 ML 200 ML IV ×2 (10:50→16:24)
--- NOTE | 2022-02-22 12:23 | PM.PN ---
Subjective Subjective: Seen this morning. Patient states that she has been having nausea ever since she had the surgery. She states her main reason of coming to the hospital was having heavy periods than normal. She is soaking greater than 3 pads every night ever since the Eliquis started. However even before that she had spotting continuously since January 18. She states that her primary care doctor is Manpreet Alonzo. She states that sometimes after eating she does get pain in her epigastric area. She has been drinking a lot of soup and having protein shakes. She is on a liquid diet. At 1 point it is evident from the notes that patient did try to eat beings and she had vague diffuse abdominal pain and presented to the ER because of it. At that point she was diagnosed with a portal vein thrombosis and started on Eliquis for 7 days and then to drop to 5 twice daily. I will start her on 5 mg Eliquis twice daily today as today is day 7. Lipase 250 today. We will do ultrasound of hepatobiliary area to rule out gallbladder stones and revisualize pancreas. Vitals/I&O/Wt Last Vital Signs Temp 97.8 F 02/22/22 11:15 Pulse 74 02/22/22 11:15 Resp 16 02/22/22 11:49 BP 111/70 02/22/22 11:15 Pulse Ox 98 02/22/22 11:15 02/21/22 02/22/22 02/22/22 22:59 06:59 14:59 Intake Total 1000 / 1000 Balance 1000 / 1000 Weight last 48 hrs Weight 84.822 kg Physical Exam Narrative: General: Alert oriented x3, patient seen laying in bed in no acute distress. HEENT: Normocephalic, atraumatic, EOMI, breathing normally Cardio: Regular rate rhythm, normal S1-S2, no murmurs rubs gallops, Respiratory: Good bilateral air entry, no wheezes no rhonchi appreciated GI: Abdomen soft, generally nontender, slight tenderness around incision sites on palpation, nondistended, bowel sounds +, Ellis sign negative by palpation, no rebound tenderness Extremities: No lower extremity edema. Data : 02/22/22 05:00 02/22/22 05:00 A&P Assessment and plan (1) Metabolic acidosis: Status: Acute (2) Polycystic ovaries: Status: Acute (3) Menorrhagia: Status: Acute (4) Pancreatitis: Status: Acute Qualifiers: Acute pancreatitis complication: no infection or necrosis Chronicity: acute Pancreatitis type: unspecified pancreatitis type Qualified Code(s): K85.90 - Acute pancreatitis without necrosis or infection, unspecified (5) Contraception management: Status: Acute (6) Hypercoagulable state: Status: Acute (7) Status post laparoscopic sleeve gastrectomy: Status: Acute (8) Hirsutism: Status: Acute Plan #Mild acute pancreatitis #Portal vein thrombosis #Dehydration #Elevated Gap acidosis, possibly starvation ketosis since pt not eating very much, correcting with fluids #Menorrhagia #Status post gastric sleeve 02/01/2022 #Obesity #Polycystic ovarian syndrome ? A1c 4.8 ? Check abdominal ultrasound rule out gallstones, will look to hepatobiliary vasculature ? Keep n.p.o. ? CT abdomen pelvis initially did show a necrotic lymph node around celiac area. ER physician spoke to surgeon over the phone regarding that. It does not seem too concerning at that point. I will discuss this with radiology to see if any further imaging studies are needed. Will order further studies after discussion with radiology ? Ketones positive at admission, lactic acid negative, leukocytosis negative ? Lipase 256. 296 at admission. Fluids were ordered for 150 cc/h however 75 cc/h being administered when I went to the room this morning. I will increase her IV fluids to 200 cc/h for few hours ? Continue Eliquis 5 mg twice daily starting today. She has completed her 10 twice daily regimen. It was started on 02/15. ? Continue to monitor hemoglobin. Hemoglobin dropped from 9.6-11-8.8. ? For portal vein thrombosis patient will need hypercoagulable work-up as an outpatient with oncology hematology. Her dad has a history of DVT. There may be a genetic component. Unsure of this is a postop complication. Most likely existing underlying hypercoagulable state is favored due to family history of DVT. ? We will check venous Dopplers bilateral lower extremities ? We will consult with gynecology regarding menorrhagia ? Patient does have polycystic ovaries evidenced on pelvic ultrasound. She will need continued follow-up with gynecology at discharge as well Full code Patient updated extensively at bedside and I tried to explain everything and the easiest terms possible. Once I discussed with radiology and gynecology, I will update her parents as well. Diet: Keep n.p.o. for now ? When we do advance her diet we will advance her to post bariatric phase 1 diet. Attestations Medical Necessity Statement*: Will need to stay in the hospital for treatment of acute pancreatitis for another 24 to 48 hours. Coding Level of Care Code Acute Bed Spring Maker for Chg Fwd Diagnoses Metabolic acidosis E87.2 Polycystic ovaries E28.2 Menorrhagia N92.0 Pancreatitis K85.90 Acute pancreatitis complication: no infection or necrosis Chronicity: acute Pancreatitis type: unspecified pancreatitis type Contraception management Z30.9 Hypercoagulable state D68.59 Status post laparoscopic sleeve gastrectomy Z98.84 Hirsutism L68.0
[2022-02-22] MEDS: acetaminophen 325 mg Tablet PO (15:01)
--- NOTE | 2022-02-22 15:11 | CTR_ITS ---
PROCEDURE INFORMATION: Exam: CT Abdomen And Pelvis With Contrast Exam date and time: 02/22/2022 6:18 PM Age: 26 years old Clinical indication: Other: Vaginally bleeding; Prior surgery; Surgery date: 1-6 months; Surgery type: Gastric cleeve; Additional info: Pancreatitis, celiac questionable necrotic node TECHNIQUE: Imaging protocol: Computed tomography of the abdomen and pelvis with contrast. Radiation optimization: All CT scans at this facility use at least one of these dose optimization techniques: automated exposure control; mA and/or kV adjustment per patient size (includes targeted exams where dose is matched to clinical indication); or iterative reconstruction. Contrast material: OMNIPAQUE 300; Contrast volume: 90 ml; Contrast route: INTRAVENOUS (IV); Other contrast: Oral, omnipaque in water, 240; COMPARISON: 02/12/2022 and 02/21/2022 CT scans of the abdomen and pelvis RADIATION DOSE METRICS: Total DLP (mGy-cm): 1785.81 FINDINGS: Liver: Normal. No mass. Gallbladder and bile ducts: Normal. No calcified stones. No ductal dilation. Pancreas: Normal. No ductal dilation. Spleen: Normal. No splenomegaly. Adrenal glands: Normal. No mass. Kidneys and ureters: A tiny renal stone is again seen in the left kidney. No hydronephrosis. Stomach and bowel: Surgical changes of sleeve gastrectomy are again noted. No intestinal obstruction. Appendix: The appendix is normal. Intraperitoneal space: Trace free fluid in the pelvis is likely physiologic. Vasculature: The distal SMV and portal vein are thrombosed, similar to that present on the 02/12/2022 exam. Cavernous transformation of the portal vein is appreciated. The splenic vein is patent. The abdominal aorta appears normal. Lymph nodes: Unremarkable. No enlarged lymph nodes. Urinary bladder: Unremarkable as visualized. Reproductive: The uterus and ovaries appear normal. Bones/joints: Unremarkable. No acute fracture. Soft tissues: Small areas of mild fat stranding are again seen in the anterior abdominal wall, which are likely related to recent surgery. CT/CT abdomen pelvis w con* [id number] IMPRESSION: 1. No acute finding. SMV and portal vein thrombosis are again noted, similar to that present on the 02/12/2022 exam. 2. No lymphadenopathy. 3. Nonobstructing left kidney renal stone.
[2022-02-22] MEDS: iohexol 300 mg/mL 50 mL Btl PO (15:54)
--- NOTE | 2022-02-22 17:25 | PM.OBGYHP ---
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 Cook is a 26-year-old 0 with an LMP of 02/16/2022 who is currently admitted to the hospital with possible pancreatitis/nausea vomiting. She underwent a laparoscopic gastric sleeve placement on 02/01/2022 at [facility] [place] and stated that last week--probably around 02/14/2022 she was diagnosed with a portal vein thrombus and as a result the NuvaRing that she had in place was removed and she was started on Eliquis. Couple of days after removal of NuvaRing she started bleeding and she states that she has been bleeding since 02/16/2022. Her bleeding is heavier than what she normally experiences during her withdrawal bleeding. She states she goes through 3 or 4 pads during the day and about 2 pads at night with passing clots and she has a lot more cramping than she is used to and she was concerned about this. Present Details Date of Last Menstrual Period: 02/21/22 Calculated Date of Delivery: 11/28/22 Gestational Age Based on Last Menstrual Period: 0 Review of Systems Const: Denies: fever(s), chills, change in appetite, fatigue, malaise or change in sleep pattern Resp: Denies: dyspnea, productive cough, wheezing or chest congestion GI: Denies: abdominal pain, nausea, vomiting, heartburn, diarrhea, constipation, change in bowel habits or hematochezia : Reports: vaginal bleeding and change in menstrual flow; Denies: flank pain, dysuria, urinary frequency, urinary urgency, urinary incontinence, genital lesions, vaginal odor, vaginal discharge or dyspareunia Psych: Denies: anxiety, depression, mood swings or change in appetite Medications/Allergies Home Medications Medication Instructions Recorded Confirmed Last Taken Type hydrocodone 5 mg-acetaminophen 325 1 tab PO Q6H PRN #28 tab 02/02/22 02/21/22 Unknown Rx mg tablet pantoprazole 40 mg tablet,delayed 40 mg PO DAILY 30 Days #30 tab 02/03/22 02/21/22 02/21/22 Rx release (Protonix) ondansetron HCl 4 mg tablet 4 mg PO Q6H PRN #30 tab 02/16/22 02/21/22 Unknown Rx oxycodone 5 mg tablet 5 mg PO Q6H PRN #20 tab 02/16/22 02/21/22 Unknown Rx sucralfate 1 gram tablet (Carafate) 1 g PO BID 84 Days #168 tab 02/16/22 02/21/22 02/21/22 Rx apixaban 5 mg tablet (Eliquis) See Rx Instructions .ROUTE .COMPLEX 02/21/22 02/21/22 02/21/22 History 10 MG AM DOSE [id number] 45 mg-folic 1 cap PO DAILY 02/21/22 02/21/22 02/21/22 History acid 800 mcg-vit K 120 mcg capsule (Bariatric Multivitamins) Allergies Allergy/AdvReac Type Severity Reaction Status Date / Time morphine Allergy ADR-Vomitin Verified 02/21/22 17:10 g 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 No pertinent past medical history Denies diabetes, asthma, hypertension, seizures, DVT/PE in the past prior to portal vein thrombus in February 2022. Portal vein thrombosis 02/2022---1 week status post surgery and using NuvaRing Surgical History (Updated 02/23/22 @ 07:34 by Kathy Finnegan MD) History of tonsillectomy and adenoidectomy age 5 Status post laparoscopic sleeve gastrectomy 02/01/2022---[facility] – [place] Family History (Updated 02/23/22 @ 07:35 by Kathy Finnegan MD) Father History of DVT (deep vein thrombosis) Other Cancer Diabetes Heart disease Hypertension Social History Smoking and tobacco status: never smoked Second hand smoke exposure: No Smoking risk assessment/counseling performed?: No Alcohol intake: current Alcohol intake frequency: holidays/special occasions only Desire information about alcohol rehabilitation?: No Counseling given: No Desire information about substance/drug rehabilitation?: No Counseling given: No Adopted: No Caregiver/support person: No Lives independently: Yes Household members: significant other Housing: House Marital status: Single Number of children: 0 service: No Current occupational status: employed Current occupation: [employer] – [place], [place] History of recent travel: No Sexually active: Yes Current gender identity: Female [facility] Information: Tobacco use: Denies Alcohol use: Social alcohol use Drug use: Denies Work status: - Last well [facility] visit: Manpreet Alonzo---2020 Other Female Reproductive History: Menstrual History Comment: Menarche at age 18, regular 30-day cycles lasting for 4 to 5 days. Since using NuvaRing she has regular withdrawal bleeding every 4 to 8 weeks depending upon her usage and has 2 to 3 days cycles with light bleeding Sexual History: Sexual History Comment: Coitarche at age 19, 5 lifetime partners, has been with her current partner since 2019. STD History Comment: Denies sexually transmitted diseases. Gonorrhea and Chlamydia were negative in October 2020 Contraception: Contraception History Comment: Has used control pills, Depo-Provera, NuvaRing in the past for contraception. States that she did try using control pills but all of them made her nauseous. She then tried Depo-Provera and used it for about 6 months but did not like the weight gain and moodiness she experienced on it. Has most recently been using the NuvaRing from around the age of 24 and has overall done the best with that and used it for 2 years until her current portal vein thrombosis. -Understands that I would not recommend estrogen-containing contraception History History History 0 Term Miscarriages/Ectopic Living Children Other History: Nulligravida Vitals/I&O/Wt Last Vital Signs Temp 97.4 F L 02/23/22 04:00 Pulse 78 02/23/22 04:00 Resp 14 02/23/22 04:00 BP 106/72 02/23/22 04:00 Pulse Ox 92 02/23/22 04:00 02/22/22 02/23/22 02/23/22 22:59 06:59 14:59 Intake Total 2120 / 3120 Balance 2120 / 3120 Weight last 48 hrs Weight 187 lb Data : 02/23/22 04:17 02/23/22 04:17 Results PAYROLL COORDINATOR Labs 2) [facility]-bleeding 02/21/2022-CBC-5.5<11.8/37.8> 410 02/22/2022-CBC-4.3<8.8/28.0> 242 02/23/2022-pending 1) 10/27/2020(STI screening-[place]) -Gonorrhea and Chlamydia negative PAP Denies history of abnormal Pap smears in the past 10/27/2020----([place])-----> negative for intraepithelial lesion or malignancy PAYROLL COORDINATOR Ultrasound 1) 02/21/2022([facility] [place]) -------> the uterus measures 5.9 x 3.7 x 3.3 cm. No myometrial masses noted. The endometrium measures 1 cm. The right ovary measures 2.3 x 4.3 x 3.8 cm with multiple follicles and normal blood flow. The left ovary measures 2.3 x 4.6 x 2.8 cm with multiple follicles and normal blood flow. Minimal free fluid around the left ovary likely physiological, A&P Assessment and plan (1) Abnormal uterine bleeding (AUB): Discussed with Ms. Cook and her mother that her current heavy bleeding is likely because of removal of the NuvaRing as well as addition of Eliquis which is a blood thinner which will likely cause heavy bleeding. Looking at her lab work although she is anemic now there is some component of it being possibly postop related as her hemoglobin on 02/16/2022 was 9.6. On this admission it was 11.8 but he was also likely hemoconcentrated given patient's admission diagnosis of nausea vomiting. Would recommend follow-up CBCs to ensure hemoglobin does not drop and blood transfusion as symptomatically/clinically indicated by primary team. -I discussed with her that most likely cause of her hypercoagulable state is being postoperative however we cannot rule out a 3 possibility that it was estrogen mediated and because of this I would recommend avoiding estrogen containing contraception. Effect of estrogen on cardiovascular system and clotting profile reviewed with them. -Discussed differences between combined hormonal contraception and progesterone only contraception. This was reviewed in detail with patient -I reviewed specifically progesterone only medication like pills Depo-Provera and LARCs. Since she does not really want to get for the next 3 to 4 years I feel like a good option would be an IUD as it is unlikely to affect her systemically in terms of mood changes and weight gain like she has been with Depo-Provera in the past. This will also provide effective contraception as well as help with bleeding control while not affecting current hypercoagulable state. -I reviewed with her in detail the way the Kyleena IUD works and its effect on her menstrual cycle -light bleeding, no bleeding, random bleeding. She understands this. I reviewed in detail the method of insertion including risks of perforation of uterus, bleeding, infection and usual post procedure course .I reviewed with her displacement of IUD including displacement into the abdomen and requiring laparoscopic removal, loss of strings or strings getting pulled into the uterus requiring hysteroscopic removal of IUD, cervical displacement of IUD required its removal and alternate contraception. I reviewed the failure rate of Kyleena IUD-less than 1%. Discussed the risk of ectopic with Mirena as well.. I discussed that the Kyleena was effective for 5 years and at the end of this time she can have it removed and choose a different form of contraception or have another IUD placed. discussed that she can have the IUD removed at any time if she desires to get again. Discussed that usually she can get immediately but it could sometimes take up to 6 months for a . She understands all of this and all her questions were answered. -That some questions about PCOS and this was clarified with her and I discussed that we are unable to make a diagnosis of PCOS just based on appearance of ovaries which could just be the quiescent nature of the ovary under hormonal suppression. Discussed criterion with PCOS is diagnosed. Reviewed that this diagnosis needs to be made when she is off of hormones and so cannot be confirmed at this time. -I will drop off information about progesterone only medication, PCOS, LARCs tomorrow so patient can review this -Follow-up as an outpatient--recommend 1 to 2 weeks after her hematology appointment so we have the recommendations and they have time to do evaluation prior to start of any external hormones -Would definitely recommend abstinence until effective contraception is in place as I would not recommend for the next 1 to 2 years after surgery -Follow-up CBC and transfusion as per clinically indicated by primary team -Recommend menstrual calendar documenting intensity and duration of bleeding. ER precautions in terms of bleeding reviewed with patient. -We will sign off for now as I do not think she needs any acute management from our service. Please do not hesitate to reconsult as needed during this hospitalization -Continue other medical problem management -All her questions were answered and she agrees with the current plan of care. I spent 45 minutes with the patient in discussion and counseling as documented above This documentation was created by [employer] assembler dc field ring software (known for inherent assembler dc field ring error). Every effort was made to assure accuracy of assembler dc field ring. Any obvious errors or omissions should be clarified with the author of the document. Status: Acute Attestations Medical Necessity Statement*: Hospitalization as per primary team Coding Level of Care Code Acute Epilepsy Physician for Angelica Colon Diagnoses Abnormal uterine bleeding (AUB) N93.9
--- NOTE | 2022-02-22 17:30 | PC.NURSE ---
I was notified by Da Woodruff RN Clinical Nurse Heat Treater Helper that patient had complaints. I presented to the room with Da Woodruff RN and patient is tearful stating that she doesn't feel as though we have done anything for her and mother is present and visibly upset, stating I want my daughter transferred to [place]. She's going to get septic and . Da Woodruff and I reviewed the patient's scans and results as well as plan of care, which would be the same if patient was transferred to [place]. Her mother verbalizes understanding and states she just has questions she would like answered. During our conversation, patient admitted to eating a quesidilla during her pre-op liquid diet and also broke her post-op diet multiple times with refried beans. Dr. Somers and Dr. Reis were made aware. Dr. Meier and Dr. Somers both rounded on patient and answered all questions. Mother and patient were satisfied with this and verbalized no further issues.
[2022-02-22] MEDS: iohexol 300 mg/mL 100 mL Btl IV (18:26)
--- NOTE | 2022-02-22 18:53 | PC.NURSE ---
PATIENT CARE NURSE BILLIE APPROACHED ME AND STATED PATIENT AND MOTHER WANTED TO SPEAK TO NURSE PROCESS CHEESE COOKER. SANTI NURSE PROCESS CHEESE COOKER AND MYSELF TALKED WITH PATIENT AND MOTHER. PATIENT BECAME TEARFUL AND SAID THAT SHE DIDN'T FEEL LIKE WE WERE DOING ANYTHING FOR HER AND MOTHER STATED SHE WANTED HER TRANSFERRED, SHE DIDN'T WANT HER TO BE SEPTIC . DR. CORONA NOTIFIED OF THIS. WHILE IN THE ROOM PATIENT ADMITTED TO THIS NURSE AND SANTI THAT SHE BROKE HER PRE-OP DIET BY EATING A QUESADILLA 2 DAYS PRIOR TO SURGERY AND BROKE HER POST-OP DIET BY EATING REFRIED BEANS MORE THAN ONCE . DR. CORONA AND DR. GUILLAUME NOTIFIED. PLAN OF CARE DISCUSSED WITH PATIENT AND MOTHER AND ALL QUESTIONS ANSWERED. PATIENT AND MOTHER CALM AT THIS TIME AND THANKED SANTI AND MYSELF FOR ANSWERING THEIR QUESTIONS.
[2022-02-22] MEDS: metoclopramide 5 mg/mL SDV 2 mL IVP (19:54)
[2022-02-22 20:11] LABS: Alanine Aminotransferase 17 U/L (0-33); Albumin Level 3.5 g/dL (3.5-5.2); Alkaline Phosphatase 56 IU/L (35-105); Anion Gap 19.8 (5-19); Aspartate Amino Transferase 19 U/L (0-32); Blood Urea Nitrogen 3 mg/dL (6-20); Calcium 8.9 mg/dL (8.5-10.5); Carbon Dioxide 19 mmol/L (22-29); Chloride 100 mmol/L (98-107); Globulin 2.9 g/dL (1.3-4.6); Glomerular Filtration Rate 151.6 mL/min (90-130); Glucose 64 mg/dL (65-115); Lipase 269 U/L (13-60); Osmolality Calculated 275 mOsm/kg (285-295); Potassium 3.8 mmol/L (3.5-5.1); Sodium 135 mmol/L (136-145); Total Bilirubin 0.3 mg/dL (0.15-1.2); Total Protein 6.4 g/dL (6.6-8.7)
[2022-02-22] MEDS: polyethylene glycol 3350 Pkt 17 gm PO (20:50)
[2022-02-22] MEDS: apixaban 5 mg Tablet PO (20:53)
[2022-02-22] MEDS: pantoprazole 40 mg SDV IVP (20:53)
--- NOTE | 2022-02-22 20:58 | PC.NURSE ---
Patient unable to take carafate without gagging and attempting to vomit. Medication was split in half for easier swallowing. Nurse offered to crush and put in applesauce. Patient refused.
[2022-02-23] VITALS (7 sets, daily range): BP systolic 98–128; BP diastolic 28–82; PULSE 64–95; RESP 14–20; TEMP 36.3–36.9; O2SAT 92–98
[2022-02-23] MEDS: lactated ringers 1,000 ML 200 ML IV (00:08)
[2022-02-23 05:11] LABS: Basophils % 1.3 %; Eosinophils # 0.1 10^3/uL (0.0-0.8); Eosinophils % 2.7 %; Hematocrit 25.5 % (37.0-47.0); Hemoglobin 8.4 g/dL (11.5-15.3); Lymphocytes # 1.2 10^3/uL (0.8-4.8); Lymphocytes % 39.7 %; Mean Corpuscular HGB Conc 32.9 g/dL (30.0-36.0); Mean Corpuscular Hemoglobin 25.9 pg (28.0-34.0); Mean Corpuscular Volume 78.7 fl (81-99); Mean Platelet Volume 10.5 fL (7.4-10.4); Monocytes # 0.4 10^3/uL (0.2-0.9); Monocytes % 13.3 %; Neutrophils # 1.28 10^3/uL (1.8-7.7); Neutrophils % 42.7 %; Nucleated Red Blood Cells % 0 %; Platelet Count 187 10^3/cmm (130-400); Red Blood Count 3.24 10^6/uL (4.1-5.3); Red Cell Distribution Width 13.2 % (12.1-15.1)
[2022-02-23 05:44] LABS: Alanine Aminotransferase 14 U/L (0-33); Albumin Level 3.2 g/dL (3.5-5.2); Alkaline Phosphatase 54 IU/L (35-105); Anion Gap 18.8 (5-19); Aspartate Amino Transferase 17 U/L (0-32); Blood Urea Nitrogen 2 mg/dL (6-20); Calcium 8.7 mg/dL (8.5-10.5); Carbon Dioxide 21 mmol/L (22-29); Chloride 102 mmol/L (98-107); Globulin 2.7 g/dL (1.3-4.6); Glomerular Filtration Rate 122.8 mL/min (90-130); Glucose 71 mg/dL (65-115); Magnesium 1.6 mg/dL (1.7-2.3); Osmolality Calculated 281 mOsm/kg (285-295); Potassium 3.8 mmol/L (3.5-5.1); Sodium 138 mmol/L (136-145); Total Bilirubin 0.3 mg/dL (0.15-1.2); Total Protein 5.9 g/dL (6.6-8.7)
[2022-02-23] MEDS: magnesium sulfate premix 4 GM/100 ML PREMIX IV (08:27)
[2022-02-23] MEDS: pantoprazole 40 mg SDV IVP ×2 (08:31→17:35)
[2022-02-23] MEDS: apixaban 5 mg Tablet PO ×2 (08:32→20:58)
[2022-02-23] MEDS: iron polysaccharide complex 150 mg Capsule PO (08:33)
[2022-02-23] MEDS: polyethylene glycol 3350 Pkt 17 gm PO (08:33)
--- NOTE | 2022-02-23 13:45 | P.PN_ITS ---
Subjective Subjective: Seen this morning. She states he feels a lot better compared to admission. Nausea has improved but still present. Went over results with her over CAT scan. No evidence of pancreatitis. It has most likely resolved at this point. Patient states her bleeding is a lot better as well. ? IV fluids have been stopped. Diet has been advanced. Vitals/I&O/Wt Last Vital Signs Temp 98.4 F 02/23/22 12:00 Pulse 88 02/23/22 12:00 Resp 16 02/23/22 12:00 BP 118/28 02/23/22 12:00 Pulse Ox 98 02/23/22 12:00 02/22/22 02/23/22 02/23/22 22:59 06:59 14:59 Intake Total 2120 / 3120 1100 / 1100 Balance 2119 / 3120 1100 / 1100 Physical Exam Narrative: General: Alert oriented x3, patient seen laying in bed in no acute distress. HEENT: Normocephalic, atraumatic, EOMI, breathing normally Cardio: Regular rate rhythm, normal S1-S2, no murmurs rubs gallops, Respiratory: Good bilateral air entry, no wheezes no rhonchi appreciated GI: Abdomen soft, generally nontender, slight tenderness around incision sites on palpation, nondistended, bowel sounds + Extremities: No lower extremity edema. Data : 02/23/22 04:17 02/23/22 04:17 A&P Assessment and plan (1) Abnormal uterine bleeding (AUB): Status: Acute (2) Pancreatitis: Status: Acute Qualifiers: Acute pancreatitis complication: no infection or necrosis Chronicity: acute Pancreatitis type: unspecified pancreatitis type Qualified Code(s): K85.90 - Acute pancreatitis without necrosis or infection, unspecified (3) Metabolic acidosis: Status: Acute (4) Hypercoagulable state: Status: Acute (5) Status post laparoscopic sleeve gastrectomy: Status: Acute (6) Prediabetes: Status: Chronic (7) Pancreatitis: Status: Acute Plan #Mild acute pancreatitis?resolved #Portal vein thrombosis #Dehydration?resolved #Elevated Gap acidosis, possibly starvation ketosis since pt not eating very much, resolved #Menorrhagia #Status post gastric sleeve 02/01/2022 #Obesity #Possible PCOS. Will need to follow-up with gynecology outpatient. ? A1c 4.8 ? Ultrasound abdomen shows sludge in gallbladder, no stones. ? CT abdomen pelvis with contrast does not show pancreatitis. Portal vein thrombosis seen similar to previous study 02/12. Copy given to patient. ? Advance diet today to bariatric postop phase 1 diet. ? Will need to follow-up with hematology at discharge for hypercoagulable work- up. ? Continue Eliquis 5 twice daily for now and at discharge. Hematology to decide on further dosage and duration of therapy ? Seen by gynecology yesterday. Plan is to have patient see hematology first and then follow-up with E[employer] EMPLOY[employer] OPPORTUNITY OFFICER outpatient. There were different options offered to her for control. I will defer this to gynecology and the patient to sylvester cody what she would like to do. Her menorrhagia was also addressed by the physician seen. ? Continue to monitor in the hospital. As long as patient is able to tolerate diet plan is to discharge her in the morning. ? Patient updated in detail today. Full code Attestations Medical Necessity Statement*: Monitor in the hospital today. Advance diet today. If able to tolerate diet may discharge home in the morning. Coding Level of Care Code Acute [employer] for [employer] F[employer] Diagnoses Abnormal uterine bleeding (AUB) N93.9 Pancreatitis K85.90 Acute pancreatitis complication: no infection or necrosis Chronicity: acute Pancreatitis type: unspecified pancreatitis type Metabolic acidosis E87.2 Hypercoagulable state D68.59 Status post laparoscopic sleeve gastrectomy Z98.84 Prediabetes R73.03 Pancreatitis K85.90
--- NOTE | 2022-02-23 15:57 | PC.NURSE ---
THIS NURSE ROUNDED ON PATIENT. PATIENT STATED SHE FEELS BETTER TODAY AND HAS TOLERATED HER DIET WITHOUT ANY NAUSEA OR VOMITING.
[2022-02-23] MEDS: HYDROmorphone 1 mg/mL INJ 1 mL 0.2 MG IVP (23:23)
[2022-02-24] VITALS: BP 109/72; PULSE 87; RESP 16; TEMP 36.9; O2SAT 97
[2022-02-24 04:00] VITALS: BP 106/71; PULSE 79; RESP 16; TEMP 36.8; O2SAT 97
[2022-02-24 05:37] LABS: Basophils % 0.9 %; Eosinophils # 0.1 10^3/uL (0.0-0.8); Eosinophils % 2.3 %; Hematocrit 26.6 % (37.0-47.0); Hemoglobin 8.6 g/dL (11.5-15.3); Lymphocytes # 1.4 10^3/uL (0.8-4.8); Lymphocytes % 41.4 %; Mean Corpuscular HGB Conc 32.3 g/dL (30.0-36.0); Mean Corpuscular Hemoglobin 25.7 pg (28.0-34.0); Mean Corpuscular Volume 79.4 fl (81-99); Mean Platelet Volume 10.4 fL (7.4-10.4); Monocytes # 0.5 10^3/uL (0.2-0.9); Monocytes % 13.2 %; Neutrophils # 1.46 10^3/uL (1.8-7.7); Neutrophils % 41.9 %; Nucleated Red Blood Cells % 0 %; Platelet Count 208 10^3/cmm (130-400); Red Blood Count 3.35 10^6/uL (4.1-5.3); Red Cell Distribution Width 13.5 % (12.1-15.1); White Blood Count 3.5 10^3/uL (4.0-10.0)
[2022-02-24 06:11] LABS: Alanine Aminotransferase 16 U/L (0-33); Albumin Level 3.4 g/dL (3.5-5.2); Alkaline Phosphatase 57 IU/L (35-105); Anion Gap 19.6 (5-19); Aspartate Amino Transferase 22 U/L (0-32); Blood Urea Nitrogen 2 mg/dL (6-20); Calcium 8.7 mg/dL (8.5-10.5); Carbon Dioxide 21 mmol/L (22-29); Chloride 102 mmol/L (98-107); Globulin 2.7 g/dL (1.3-4.6); Glomerular Filtration Rate 122.8 mL/min (90-130); Glucose 72 mg/dL (65-115); Osmolality Calculated 283 mOsm/kg (285-295); Potassium 3.6 mmol/L (3.5-5.1); Sodium 139 mmol/L (136-145); Total Bilirubin 0.4 mg/dL (0.15-1.2); Total Protein 6.1 g/dL (6.6-8.7)
[2022-02-24 07:43] VITALS: BP 110/72; PULSE 83; RESP 12; TEMP 36.6; O2SAT 97
[2022-02-24] MEDS: iron polysaccharide complex 150 mg Capsule PO (09:41)
[2022-02-24] MEDS: pantoprazole 40 mg SDV IVP (09:41)
[2022-02-24] MEDS: apixaban 5 mg Tablet PO (09:45)
[2022-02-24] MEDS: sodium chloride 0.9% 1,000 ML 999 ML IV (10:48)
[2022-02-24 12:00] VITALS: BP 118/72; PULSE 94; RESP 13; TEMP 36.6; O2SAT 98
--- NOTE | 2022-02-24 12:43 | PM.DCS ---
Discharge Providers Date of Admission: 02/21/22 18:06 Date of Discharge: February 24, 2022 Attending Provider at Admission: Erma Somers MD Attending Provider at Discharge: Erma Somers MD Primary Care Provider: DALIA Virk Diagnoses at Discharge Discharge Diagnosis (1) Abnormal uterine bleeding (AUB): Status: Acute (2) Pancreatitis: Status: Acute Qualifiers: Acute pancreatitis complication: no infection or necrosis Chronicity: acute Pancreatitis type: unspecified pancreatitis type Qualified Code(s): K85.90 - Acute pancreatitis without necrosis or infection, unspecified (3) Metabolic acidosis: Status: Acute (4) Hypercoagulable state: Status: Acute Permanent problem details: Hematology consultation. (5) Status post laparoscopic sleeve gastrectomy: Status: Acute [place]ermanent [place] [place] Prediabetes: Status: Chronic (7) Pancreatitis: Status: Acute Reason for Visit Reason for Visit: vaginal bleeding/passing clots/weakness/nausea Brief History: as per dr. yesenia Butler Bess Cook is a 26 year old female with history of portal vein thrombosis, hypercoagulable work-up has been initiated by coat maker, she has history of gastric bypass, celiac axis lymphadenopathy, presented with chief complaint of worsening vaginal bleeding. Patient is stating that since her gastric bypass she has been experiencing multiple complications such as protuberant thrombosis, recurrent emesis, she is on liquid diet.? She was discharged on 02/16 after cyclical vomiting management. Patient primary concern is vaginal bleeding.? Since initiation of Eliquis she is noticing heavy periods.? She was concerned and wanted to get it checked.? In the ER she was diagnosed with pancreatitis, transvaginal ultrasound did show regular menstrual flow, endometrial thickening, polycystic ovaries.? Abdominal CT scan revealed pancreatitis portal vein thrombosis nephrolithiasis without hydronephrosis, celiac axis lymphadenopathy, questionable necrotic lymph node Patient is stating that since her discharge from the hospital she did not experience any episode of emesis, she was experiencing dry heaves and retching with nausea she avoided to increase her liquid diet to prevent emesis.? She is endorsing dehydration.? No diarrhea.? No recent use of antibiotics.? She does not smoke or drink alcohol. Hospital Course Hospital Course Patient was admitted for nausea and elevated gap acidosis possibly secondary to starvation ketosis as patient has not been eating very much. Lipase is also elevated admission and there was mild pancreatitis evidenced on CT scan abdomen done in the ER. Patient's main complaint for admission was menorrhagia and feeling weak. She stated the heavy periods of been going on since she started the Eliquis. this got her control and therefore came to the hospital. She has also been persistently nauseous ever since her surgery and that was another reason why she came in. Patient was treated with IV fluids and CT abdomen pelvis was completed with IV and oral contrast. Pancreatitis resolved. Portal vein thrombosis SMA vein thrombosis again present on CAT scan similar to prior study from 02/12. Patient has completed 7 days of Eliquis of 10 twice daily and therefore was transitioned to 5 twice daily. Ultrasound right upper quadrant was also done which showed sludge in gallbladder but no stones. She was started on ursodiol at discharge. Patient was also seen by gynecology this admission in regards to her menorrhagia. Different options were discussed with her by the physician progesterone only pill versus IUD. She was advised however to pursue these options after she has seen hematology oncology for work-up for her possible hypercoagulable state due to recent portal vein thrombosis after surgery. Patient hemoglobin was monitored in the hospital and it did drop to 8.4 but stayed stable and at discharge it was 8.6. She did not require blood transfusion during this hospital stay. After Eliquis was switched to 5 twice daily patient stated that the bleeding had improved. She was started on post bariatric phase 1 diet and asked to take frequent smaller meals throughout the day. Patient stated that her nausea was significantly better and resolved at time of discharge. She stated the Reglan helped her more than the Zofran. Therefore she was given a prescription for Reglan at discharge. I also offered her to see the dietitian again at discharge to discuss diet and go over what she should be eating and how often. Patient declined to see the dietitian at this time and said that she was aware of what she needed to do. Throughout patient's hospitalization I was in touch with her bariatric surgeon Dr. Reis and gave him updates daily. He was out of town at [place] and therefore could not physically see the patient but was aware of all the studies I had done and the management in the hospital here. He also spoke to the patient on the phone to check up on her daily throughout her hospital stay. Of note patient did admit to the nurses that she broke her diet by eating refried beans more than once after her surgery and she is well aware that she should not have done that. I did reiterate with the patient to be compliant to her diet and eat smaller frequent throughout the day as her stomach is much smaller compared to before and maintain adequate Oral hydration. Patient was discharged home in stable condition. At this admission she was also given a copy of her CAT scan report that was done with oral and IV contrast. She will follow-up with Dr. Reis as an outpatient, Dr. Caraballo hematology oncology and her primary care doctor. After she has seen Dr. Caraballo she will follow-up with [facility] and see Dr. Meier for management of her menorrhagia. Physical Exam Narrative: General: Alert oriented x3, patient seen laying in bed in no acute distress. HEENT: Normocephalic, atraumatic, EOMI, breathing normally Cardio: Regular rate rhythm, normal S1-S2, no murmurs rubs gallops, Respiratory: Good bilateral air entry, no wheezes no rhonchi appreciated GI: Abdomen soft, generally nontender, slight tenderness around incision sites on palpation, nondistended, bowel sounds + Extremities: No lower extremity edema. Discharge Data Studies Completed and Pending Completed Studies During Hospitalization Category Date Time Status CT abdomen pelvis w con* [id number] Routine Cat Scan 02/22/22 15:[address] abdomen pelvis wo con [id number] Urgent Cat Scan 02/21/22 15:41 Completed US abdomen limited [id number] Stat Ultrasound 02/22/22 07:39 Completed US pelvic with transvaginal Urgent Ultrasound 02/21/22 14:55 Completed Radiology Impressions Pelvic/Transvag US 02/21/22 14:55 IMPRESSION: 1. No acute findings. 2. Enlarged ovaries with multiple ovarian follicles. Correlate clinically for signs of polycystic ovarian syndrome. Abdomen Ultrasound 02/22/22 07:39 IMPRESSION: 1. No distended gallbladder with a large amount of sludge. No bile duct dilatation. 2. Poor visualization of flow in the portal vein suspicious for portal vein thrombosis as previously described. Portal vein thrombosis was identified on 02/12/2022 CT. Continued portal vein thrombosis. The overall extent cannot be determined by ultrasound. Abdomen/Pelvis CT 02/22/22 15:11 IMPRESSION: 1. No acute finding. SMV and portal vein thrombosis are again noted, similar to that present on the 02/12/2022 exam. 2. No lymphadenopathy. 3. Nonobstructing left kidney renal stone. Laboratory Results WBC 3.5 10^3/uL (4.0-10.0) L 02/24/22 05:09 RBC 3.35 10^6/uL (4.1-5.3) L 02/24/22 05:09 Hgb 8.6 g/dL (11.5-15.3) L 02/24/22 05:09 Hct 26.6 % (37.0-47.0) L 02/24/22 05:09 MCV 79.4 fl (81-99) L 02/24/22 05:09 MCH 25.7 pg (28.0-34.0) L 02/24/22 05:09 MCHC 32.3 g/dL (30.0-36.0) 02/24/22 05:09 RDW 13.5 % (12.1-15.1) 02/24/22 05:09 Plt Count 208 10^3/cmm (130-400) 02/24/22 05:09 MPV 10.4 fL (7.4-10.4) 02/24/22 05:09 Neut % (Auto) 41.9 % 02/24/22 05:09 Lymph % (Auto) 41.4 % 02/24/22 05:09 [place] % (Auto) 13.2 % 02/24/22 05:09 Eos % (Auto) 2.3 % 02/24/22 05:09 Baso % (Auto) 0.9 % 02/24/22 05:09 Neut # (Auto) 1.46 10^3/uL (1.8-7.7) L 02/24/22 05:09 Lymph # (Auto) 1.4 10^3/uL (0.8-4.8) 02/24/22 05:09 [place] # (Auto) 0.5 10^3/uL (0.2-0.9) 02/24/22 05:09 Eos # (Auto) 0.1 10^3/uL (0.0-0.8) 02/24/22 05:09 Baso # (Auto) 0.0 10^3/uL (0.0-0.1) 02/24/22 05:09 Nucleated RBC % (auto) 0 % 02/24/22 05:09 Nucleated RBCs # 0.0 /100WBC 02/24/22 05:09 PT 25.80 SECONDS (12.1-14.9) H 02/21/22 14:45 INR 2.32 (0.8-1.2) H 02/21/22 14:45 APTT 47.9 SECONDS (23.9-36.7) H 02/21/22 14:45 Sodium 139 mmol/L (136-145) 02/24/22 05:09 Potassium 3.6 mmol/L (3.5-5.1) 02/24/22 05:09 Chloride 102 mmol/L (98-107) 02/24/22 05:09 Carbon Dioxide 21 mmol/L (22-29) L 02/24/22 05:09 Anion Gap 19.6 (5-19) H 02/24/22 05:09 BUN 2 mg/dL (6-20) L 02/24/22 05:09 Creatinine 0.6 mg/dL (0.5-0.9) 02/24/22 05:09 GFR Calculation 122.8 mL/min (90-130) 02/24/22 05:09 Glucose 72 mg/dL (65-115) 02/24/22 05:09 Estimat Average Glucose 91 02/21/22 19:03 Hemoglobin A1c 4.8 % (4.0-6.0) 02/21/22 19:03 Calculated Osmolality 283 mOsm/kg (285-295) L 02/24/22 05:09 Lactate 0.9 mmol/L (0.5-2.2) 02/21/22 19:03 Calcium 8.7 mg/dL (8.5-10.5) 02/24/22 05:09 Magnesium 1.6 mg/dL (1.7-2.3) L 02/23/22 04:17 Total Bilirubin 0.4 mg/dL (0.15-1.2) 02/24/22 05:09 AST 22 U/L (0-32) 02/24/22 05:09 ALT 16 U/L (0-33) 02/24/22 05:09 Alkaline Phosphatase 57 IU/L (35-105) 02/24/22 05:09 Total Protein 6.1 g/dL (6.6-8.7) L 02/24/22 05:09 Albumin 3.4 g/dL (3.5-5.2) L 02/24/22 05:09 Globulin 2.7 g/dL (1.3-4.6) 02/24/22 05:09 Triglycerides 101 mg/dL (0-150) 02/21/22 19:03 Lipase 269 U/L (13-60) H 02/22/22 19:41 HCG, Qual Negative (Negative) 02/21/22 14:45 Serum Ketones Positive (Negative) H 02/21/22 19:03 Vitals Last Vital Signs Temp 97.9 F 02/24/22 12:00 Pulse 94 02/24/22 12:00 Resp 13 02/24/22 12:00 BP 118/72 02/24/22 12:00 Pulse Ox 98 02/24/22 12:00 Discharge Plan Discharge Patient Disposition: Home Condition: Stable Prescriptions: New Eliquis 5 mg Tablet 5 mg PO BID@0900,2100 30 Days Qty: 60 0RF Reglan 5 mg tablet 5 mg PO Q6H PRN (Reason: nausea and vomiting) 5 Days Qty: 14 0RF ursodiol 300 mg capsule 300 mg PO BID 14 Days Qty: 28 0RF Continued hydrocodone-acetaminophen 5-325 mg tablet 1 tab PO Q6H PRN (Reason: pain) Qty: 28 0RF pantoprazole [Protonix] 40 mg tablet,delayed release (DR/EC) 40 mg PO DAILY 30 Days Qty: 30 3RF ondansetron HCl 4 mg tablet 4 mg PO Q6H PRN (Reason: nausea and vomiting) Qty: 30 2RF sucralfate [Carafate] 1 gram tablet 1 g PO BID 84 Days Qty: 168 0RF Bariatric Multivitamins 45 mg iron- 800 mcg-120 mcg Capsule 1 cap PO DAILY 0RF Discontinued oxycodone 5 mg tablet 5 mg PO Q6H PRN (Reason: pain) Qty: 20 0RF Eliquis 5 mg tablet See Rx Instructions .ROUTE .COMPLEX 0RF Rx Instructions: 10 mg twice a day for 5 more days, then 5 mg twice daily Discharge Orders: Discharge Order (Routine); Ordered 02/24/22 Ordered By: Erma Lizbet Referrals: Scooter Reis MD [Physician] - 03/02/22 11:30 am Manpreet Alonzo, SHOT PEEN OPERATOR-C [Primary Care Provider] - 03/03/22 11:20 am Kartik Tidwell MD [Hospitalist] - 03/07/22 10:00 am Discharge Activity: Resume usual activity Patient Instructions: Metoclopramide (By mouth), Ursodiol (By mouth), Apixaban (By mouth), Opioid Safety Activity Restrictions/Additional Instructions: Bariatric phase 1 diet as directed. Please return to ER if you develop worsening nausea and vomiting, abdominal pain, blood in stool/urine, chest pain, shortness of breath. Discharge Attestations Time Spent in Discharge Care*: greater than 30 min Status at Discharge: Cognitive status at discharge: cognitively intact, Behavioral status at discharge: cooperative, Quality Metrics Clinical Quality Measures [ No reported AMI, CVA or VTE this stay] Coding Level of Care Code Acute Chg FW DC note Diagnoses Abnormal uterine bleeding (AUB) N93.9 Pancreatitis K85.90 Acute pancreatitis complication: no infection or necrosis Chronicity: acute Pancreatitis type: unspecified pancreatitis type Metabolic acidosis E87.2 Hypercoagulable state D68.59 Status post laparoscopic sleeve gastrectomy Z98.84 Prediabetes R73.03 Pancreatitis K85.90
--- NOTE | 2022-02-24 12:49 | PC.NURSE ---
PATIENT DECLINED TO SPEAK WITH THE RETAIL TIRE SALES MANAGER CONCERNING HER POST BARIATRIC DIET.
== END 2022-02-24 15:30 | disposition home or self-care (01) | DRG 438 ==
LOC: ER 20:24 → MEDSURG 20:58
PROVIDERS: Internal Medicine; Physician Assistant; Admitting Provider Internal Medicine; Emergency Provider Family Medicine; PCP Nurse Practitioner; Visit Provider Internal Medicine
DX: K85.90 Acute pancreatitis without necrosis or infection, unspecified (principal); I81 Portal vein thrombosis; E87.2 Acidosis; D68.59 Other primary thrombophilia; N93.9 Abnormal uterine and vaginal bleeding, unspecified; Z98.84 Bariatric surgery status; N20.0 Calculus of kidney; F41.9 Anxiety disorder, unspecified; E66.9 Obesity, unspecified; Z68.31 Body mass index [BMI] 31.0-31.9, adult; E28.2 Polycystic ovarian syndrome; L68.0 Hirsutism; E86.0 Dehydration; R73.03 Prediabetes; R59.0 Localized enlarged lymph nodes; Z79.891 Long term (current) use of opiate analgesic
CPT/HCPCS: 36415; 74176; 74177; 76705; 76830; 76856; 80053; 82009; 83036; 83605; 83690; 83735; 84478; 84703; 85025; 85610; 85730; 96374; 99285; C9113; J1170; J2405; J2765; J3475; J7030; Q9967

== ENCOUNTER 2022-03-07 09:56 | Oncology outpatient (recurring) (ONCR) | payer OTHER, SELFPAY ==
[2022-03-07 12:31] LABS: Basophils % 0.6 %; Eosinophils # 0.1 10^3/uL (0.0-0.8); Eosinophils % 2.2 %; Hematocrit 30.2 % (37.0-47.0); Hemoglobin 9.5 g/dL (11.5-15.3); Mean Corpuscular HGB Conc 31.5 g/dL (30.0-36.0); Mean Corpuscular Hemoglobin 25.3 pg (28.0-34.0); Mean Corpuscular Volume 80.3 fl (81-99); Monocytes # 0.5 10^3/uL (0.2-0.9); Monocytes % 14.2 %; Neutrophils # 1.67 10^3/uL (1.8-7.7); Neutrophils % 52.7 %; Nucleated Red Blood Cells % 0 %; Platelet Count 204 10^3/cmm (130-400); Red Blood Count 3.76 10^6/uL (4.1-5.3); White Blood Count 3.2 10^3/uL (4.0-10.0)
[2022-03-07 12:48] LABS: Alanine Aminotransferase 36 U/L (0-33); Albumin Level 4.4 g/dL (3.5-5.2); Alkaline Phosphatase 60 IU/L (35-105); Anion Gap 17.3 (5-19); Aspartate Amino Transferase 38 U/L (0-32); Blood Urea Nitrogen 11 mg/dL (6-20); Calcium 9.5 mg/dL (8.5-10.5); Carbon Dioxide 26 mmol/L (22-29); Chloride 100 mmol/L (98-107); Ferritin 20 ng/mL (15-150); Globulin 2.5 g/dL (1.3-4.6); Glomerular Filtration Rate 122.8 mL/min (90-130); Glucose 90 mg/dL (65-115); Iron 17 ug/dL (37-145); Osmolality Calculated 289 mOsm/kg (285-295); Percent Saturation 6.6 % (20-50); Potassium 3.3 mmol/L (3.5-5.1); Sodium 140 mmol/L (136-145); Total Bilirubin 0.5 mg/dL (0.15-1.2); Total Iron Binding Capacity 256 mcg/dl; Total Protein 6.9 g/dL (6.6-8.7); Unsaturated Iron Binding 239 ug/dL (112-347)
[2022-03-10 01:42] LABS: CARDIOLIPIN AB (IGA) <2.0 APL-U/mL; CARDIOLIPIN AB (IGG) <2.0 GPL-U/mL; CARDIOLIPIN AB (IGM) <2.0 MPL-U/mL
[2022-03-10 04:07] LABS: Beta 2 Glycoprotein IGA 3.5 U/mL (<20.0); Beta 2 Glycoprotein IGG <2.0 U/mL (<20.0); Beta 2 Glycoprotein IGM <2.0 U/mL (<20.0)
[2022-03-12 23:39] LABS: Factor 5 Leiden Mutation NEGATIVE
== END 2022-03-17 23:59 | disposition home or self-care (01) ==
PROVIDERS: PCP Nurse Practitioner; Visit Provider Internal Medicine Medical Oncology
DX: I81 Portal vein thrombosis (principal); D50.0 Iron deficiency anemia secondary to blood loss (chronic); Z83.2 Family history of diseases of the blood and blood-forming organs and certain disorders involving the immune mechanism; N93.9 Abnormal uterine and vaginal bleeding, unspecified
CPT/HCPCS: 80053; 81241; 82728; 83540; 83550; 85025; 85210; 86146; 86147; 99204

== ENCOUNTER 2022-03-13 04:34 | Emergency (ER) | payer OTHER, SELFPAY ==
[2022-03-13 05:55] VITALS: BP 119/94; PULSE 93; RESP 18; TEMP 36.6; O2SAT 100; BMI 31.2
[2022-03-13 06:07] LABS: Basophils % 0.5 %; Eosinophils % 0.2 %; Hematocrit 29.3 % (37.0-47.0); Hemoglobin 9.1 g/dL (11.5-15.3); Lymphocytes # 0.7 10^3/uL (0.8-4.8); Lymphocytes % 17.1 %; Mean Corpuscular HGB Conc 31.1 g/dL (30.0-36.0); Mean Corpuscular Volume 80.5 fl (81-99); Mean Platelet Volume 10.9 fL (7.4-10.4); Monocytes # 0.3 10^3/uL (0.2-0.9); Monocytes % 6.5 %; Neutrophils # 3.14 10^3/uL (1.8-7.7); Neutrophils % 75.5 %; Nucleated Red Blood Cells % 0 %; Platelet Count 160 10^3/cmm (130-400); Red Blood Count 3.64 10^6/uL (4.1-5.3); Red Cell Distribution Width 15.3 % (12.1-15.1); White Blood Count 4.2 10^3/uL (4.0-10.0)
[2022-03-13] MEDS: ondansetron 2 mg/ML SDV 2 mL 4 MG IVP (06:12)
[2022-03-13] MEDS: sodium chloride 0.9% 1,000 ML 999 ML IV (06:13)
--- NOTE | 2022-03-13 06:20 | W.ED.ABDPA2 ---
HPI - Abdominal Pain General: Chief Complaint: Abdominal Pain Stated Complaint: abdominal pain/vomiting/vaginal pain Time Seen by Provider: 03/13/22 06:20 History of Present Illness: Ms. Cook is a 26-year-old lady with complex past medical history including gastric sleeve surgery complicated by portal vein thrombosis who presents to the emergency department due to abdominal pain. Onset of symptoms was yesterday evening at rest. She denies specific known provoking factors or illness preceding. She describes sudden onset pain in the left abdomen and left flank. She was seen at [facility] and diagnosed with colitis and urinary tract infection. She reports symptoms were improved at that time however approximately 2 hours later severe pain resumed. Overall course of symptoms has been worsening. Intensity is moderate to severe. No other specific changes in health, exacerbating, or alleviating factors identified. Onset (ago): hour(s) Pain Consistency: constant Location: RLQ, LLQ, L flank and Pelvis Severity: severe Quality: cramping, stabbing and aching Associated Symptoms: Reports nausea and vomiting Related Data: Date of Last Menstrual Period: 02/21/22 Review of Systems General: Reports: 10 or more systems reviewed and unremarkable except in HPI and below GI: Reports: nausea and vomiting PFSH ED PFSH: Medical History Abnormal uterine bleeding (AUB) Chronic migraine Hypercoagulable state Hematology consultation. No pertinent past medical history Denies diabetes, asthma, hypertension, seizures, DVT/PE in the past prior to portal vein thrombus in February 2022. Pancreatitis Portal vein thrombosis 02/2022---1 week status post surgery and using NuvaRing Surgical History History of tonsillectomy and adenoidectomy age 5 Status post laparoscopic sleeve gastrectomy 02/01/2022---[facility] [place] Family History Father History of DVT (deep vein thrombosis) Cancer skin Diabetes Clotting disorder Chronic kidney disease (CKD) Dementia Mother Cancer cervical Grandfather CAD (coronary artery disease) Grandmother Age related osteoporosis Other Heart disease Hyperlipidemia Hypertension Lung disease Stroke Denies family history of Psychiatric illness Suicide Anesthesia complication Bleeding disorder Social History Smoking and tobacco status: never smoked Second hand smoke exposure: No Smoking risk assessment/counseling performed?: No Alcohol intake: former Desire information about alcohol rehabilitation?: No Counseling given: No Desire information about substance/drug rehabilitation?: No Counseling given: No Adopted: No Caregiver/support person: No Lives independently: Yes Household members: significant other Housing: House Marital status: Single Number of children: 0 service: No Current occupational status: employed Current occupation: [employer] [place] History of recent travel: No Sexually active: Yes Current gender identity: Female Female Reproductive History: Date of last menstrual period: 02/21/22 Physical Exam Const: COMMON NORMALS: alert GENERAL APPEARANCE: cooperative and well developed HENMT: COMMON NORMALS: normocephalic and atraumatic HEAD & SCALP: normocephalic and atraumatic Eye: COMMON NORMALS: conjunctivae normal CONJUNCTIVA: Yes conjunctivae normal SCLERA: sclerae normal Neck/C-Spine: COMMON NORMALS: supple GENERAL: Yes trachea midline Resp: COMMON NORMALS: normal respiratory effort and clear to auscultation bilaterally EFFORT & INSPECTION: Yes able to speak in complete sentences AUSCULTATION: clear to auscultation bilaterally Cardio: COMMON NORMALS: regular rate and regular rhythm RATE: regular rate RHYTHM: regular rhythm GI: COMMON NORMALS: Soft to palpation PALPATION: Yes Soft to palpation, Yes Tenderness to palpation present (GI), No Guarding due to palpation present (GI) and No Rigid due to palpation PERCUSSION: normal to percussion Extremity: GENERAL: Yes normal exam except as noted and No edema Neuro: COMMON NORMALS: moves all extremities SENSORIUM/ORIENTATION: Yes alert and No Orientation impaired Psych: COMMON NORMALS: mental status grossly normal and Normal thought process present THOUGHT PROCESS: Normal thought process present Course ED course: - Patient was seen and evaluated by me at bedside - Patient placed on cardiac monitors, IV access obtained - Initial evaluation notable for exam as above - Labs and xrays personally interpreted by me - Fluids, analgesia, and antiemetic given - Labs notable for no leukocytosis, microcytic anemia. Metabolic panel with mild evidence of dehydration. Minimal AST elevation similar to prior. Urinalysis with ketones and blood as well as mild squamous epithelial contamination. Yeast noted however given recent antibiotic use true interpretation of urinalysis is challenging. Patient denies rash/symptoms of yeast infection. Yeast in urine is usually not pathologic, will defer to repeat/give time for symptom improvement antibiotics. - Imaging notable for unremarkable pelvic organs and renal/bladder ultrasound. - Outside records reviewed as noted below. I do not feel that repeat CT scan is clinical warranted. - Upon serial reexamination after treatment the patient was improved with repeat doses of symptom treatment. Patient able to tolerate p.o. intake. - Based on patient history, evaluation, and testing as interpreted the most likely cause of the patient's condition is abdominal pain related to previously diagnosed mild colitis and UTI for which the patient is receiving treatment. I will add prescriptions for nausea and pain. - The results of ED evaluation were discussed with the patient including prescriptions and/or symptomatic cares (if applicable) including appropriate and responsible use, followup plan, and return precautions. The patient verbalized understanding and felt safe for discharge. - Patient discharged in satisfactory condition. Note: Click bubbles or prepopulated [place] in note writing are used for assistance with data collection and billing and are inherently more limited than narrative and other text portions of this note. Please use narrative for additional clinical history and defer to narrative/free test for any case of contradictory information. If information appears in only free text or click bubble it should be considered present or absent as reported. Please contact note law writer for clarifications of clinical information or contradictory information. MDM is a brief summary, contradictory or erroneous seeming information should be clarified and full note should be reviewed. Vital Signs: Vital signs: Vital Signs Temperature 97.8 F 03/13/22 05:55 Pulse Rate 98 03/13/22 10:52 Respiratory Rate 18 03/13/22 10:52 Blood Pressure 155/108 03/13/22 10:52 Pulse Oximetry 96 03/13/22 10:52 MDM - Abdominal Pain Medical Decision Making 26-year-old lady with complex past medical history presenting due to continued abdominal symptoms. She was previously diagnosed with colitis and urinary tract infection. ED evaluation without new significant findings. Symptoms improved with treatment and patient tolerated p.o. intake. Satisfactory for outpatient management. Medical Records I reviewed the patient's medical records. Review of [facility] records: Initial reported heart rate mildly elevated at 03/12/20222103 heart rate 102. Otherwise appears to be normal with normal blood pressure. CBC from 03/12 2110 WBC 4.5, hemoglobin 9.9, hematocrit 32.0 platelets 216. CMP from same time revealing sodium 141, potassium 3.4, chloride 102, bicarb 25, BUN 7, creatinine 1.7, AST 41, ALT 37. Urinalysis appears bloody and turbid with specific gravity greater than 1.03. Leuk esterase negative nitrate positive for 3+ protein negative glucose 1+ ketones. Micro revealing 6-10 whites, greater than 100 reds and 1+ bacteria with 0-[address] performed 03/12 2228 impression reads 1. No hydronephrosis or calculi. There is a tiny calcification within the left posterior hemipelvis adjacent to the distal left ureter consistent with phlebolith.. 2. Findings suspicious for acute pancreatitis. Please correlate with amylase and lipase. 3. There is suggestion of mild perirectal fat stranding. Question mild fat stranding adjacent to the ascending colon. Consider mild acute colitis. Lipase revealed to be 99. Previous note consistent with current exam that there is no specific tenderness in the epigastric region. Given dose of Cipro and Flagyl as well as symptom control. Discharged with Cipro and Flagyl Rx. Lab Data I reviewed the patient's lab results. : 03/13/22 06:00 03/13/22 06:00 Labs/Radiology: Radiology Impressions Pelvis Ultrasound 03/13/22 07:38 IMPRESSION: 1. Anteflexed uterus unremarkable myometrium. 2. Endometrial tissues are not visualized. 3. Normal bilateral ovaries. 4. Normal urinary bladder Renal Ultrasound 03/13/22 07:45 IMPRESSION: Unremarkable kidneys and bladder. Laboratory Results WBC 4.2 10^3/uL (4.0-10.0) 03/13/22 06:00 RBC 3.64 10^6/uL (4.1-5.3) L 03/13/22 06:00 Hgb 9.1 g/dL (11.5-15.3) L 03/13/22 06:00 Hct 29.3 % (37.0-47.0) L 03/13/22 06:00 MCV 80.5 fl (81-99) L 03/13/22 06:00 MCH 25.0 pg (28.0-34.0) L 03/13/22 06:00 MCHC 31.1 g/dL (30.0-36.0) 03/13/22 06:00 RDW 15.3 % (12.1-15.1) H 03/13/22 06:00 Plt Count 160 10^3/cmm (130-400) 03/13/22 06:00 MPV 10.9 fL (7.4-10.4) H 03/13/22 06:00 Neut % (Auto) 75.5 % 03/13/22 06:00 Lymph % (Auto) 17.1 % 03/13/22 06:00 [place] % (Auto) 6.5 % 03/13/22 06:00 Eos % (Auto) 0.2 % 03/13/22 06:00 Baso % (Auto) 0.5 % 03/13/22 06:00 Neut # (Auto) 3.14 10^3/uL (1.8-7.7) 03/13/22 06:00 Lymph # (Auto) 0.7 10^3/uL (0.8-4.8) L 03/13/22 06:00 [place] # (Auto) 0.3 10^3/uL (0.2-0.9) 03/13/22 06:00 Eos # (Auto) 0.0 10^3/uL (0.0-0.8) 03/13/22 06:00 Baso # (Auto) 0.0 10^3/uL (0.0-0.1) 03/13/22 06:00 Nucleated RBC % (auto) 0 % 03/13/22 06:00 Nucleated RBCs # 0.0 /100WBC 03/13/22 06:00 PT 18.10 SECONDS (12.1-14.9) H 03/13/22 07:47 INR 1.46 (0.8-1.2) H 03/13/22 07:47 APTT 36.4 SECONDS (23.9-36.7) 03/13/22 07:47 Sodium 142 mmol/L (136-145) 03/13/22 06:00 Potassium 4.2 mmol/L (3.5-5.1) 03/13/22 06:00 Chloride 104 mmol/L (98-107) 03/13/22 06:00 Carbon Dioxide 22 mmol/L (22-29) 03/13/22 06:00 Anion Gap 20.2 (5-19) H 03/13/22 06:00 BUN 8 mg/dL (6-20) 03/13/22 06:00 Creatinine 0.7 mg/dL (0.5-0.9) 03/13/22 06:00 GFR Calculation 102.8 mL/min (90-130) 03/13/22 06:00 Glucose 121 mg/dL (65-115) H 03/13/22 06:00 Calculated Osmolality 294 mOsm/kg (285-295) 03/13/22 06:00 Calcium 9.0 mg/dL (8.5-10.5) 03/13/22 06:00 Total Bilirubin 0.4 mg/dL (0.15-1.2) 03/13/22 06:00 AST 37 U/L (0-32) H 03/13/22 06:00 ALT 32 U/L (0-33) 03/13/22 06:00 Alkaline Phosphatase 54 IU/L (35-105) 03/13/22 06:00 Total Protein 6.9 g/dL (6.6-8.7) 03/13/22 06:00 Albumin 4.3 g/dL (3.5-5.2) 03/13/22 06:00 Globulin 2.6 g/dL (1.3-4.6) 03/13/22 06:00 Lipase 52 U/L (13-60) 03/13/22 06:00 HCG, Qual Negative (Negative) 03/13/22 06:55 Urine Color Yellow (Yellow) 03/13/22 06:55 Urine Appearance Cloudy (CLEAR) 03/13/22 06:55 Urine pH 5 (5-7) 03/13/22 06:55 Ur Specific [place] 1.030 (1.005-1.030) 03/13/22 06:55 Urine Protein Neg (Negative) 03/13/22 06:55 Urine Glucose (UA) Norm (Normal) 03/13/22 06:55 Urine Ketones 3+ (Negative) H 03/13/22 06:55 Urine Blood 3+ (Negative) H 03/13/22 06:55 Urine Nitrate Negative (Negative) 03/13/22 06:55 Urine Bilirubin Neg (Negative) 03/13/22 06:55 Urine Urobilinogen Norm mg/dL (Negative) 03/13/22 06:55 Ur Leukocyte Esterase Negative (Negative) 03/13/22 06:55 Urine RBC 50-80 /hpf (0-2) H 03/13/22 06:55 Urine WBC 10-15 /hpf (0-5) H 03/13/22 06:55 Ur Squamous Epith Cells 5-10 /hpf (0-5) H 03/13/22 06:55 Amorphous Sediment Not Reportable 03/13/22 06:55 Urine Bacteria 1+ /hpf (NONE) H 03/13/22 06:55 Urine Yeast 2+ /hpf H 03/13/22 06:55 Discharge Plan Discharge Patient Disposition: Home Clinical Impression: Abdominal pain, Nausea and vomiting, Anemia, Hematuria Condition: Stable Prescriptions: New metoclopramide HCl 5 mg tablet,disintegrating 5 mg PO TID Qty: 10 0RF No Action sucralfate 100 mg/mL suspension 10 ml PO BID Qty: 600 2RF scopolamine base 1 mg over 3 days patch 3 day 1 patch transdermal Q3D PRN (Reason: nausea and vomiting) 12 Days Qty: 4 0RF pantoprazole [Protonix] 40 mg tablet,delayed release (DR/EC) 40 mg PO DAILY 30 Days Qty: 30 3RF ondansetron HCl 4 mg tablet 4 mg PO Q6H PRN (Reason: nausea and vomiting) Qty: 30 2RF Women's Multivitamin 18 mg iron-400 mcg-500 mg Tablet 1 tab PO DAILY 0RF promethazine 25 mg tablet 25 mg PO Q6H PRN (Reason: nausea and vomiting) Qty: 20 0RF Bariatric Multivitamins 45 mg iron- 800 mcg-120 mcg Capsule 1 cap PO DAILY 0RF Eliquis 5 mg Tablet 5 mg PO BID@0900,2100 30 Days Qty: 60 0RF Discharge Orders: Discharge ED (Routine); Ordered 03/13/22 Ordered By: Eben Mock Referrals: Manpreet Alonzo, [facility] [employer] [Primary Care Provider] - Discharge Diet: Clear Liquid Discharge Activity: Increase activity as tolerated Activity Restrictions/Additional Instructions: Thank you for visiting the emergency department. You were seen and evaluated for nausea, vomiting, and abdominal pain. The most likely cause is related to your previously diagnosed urinary tract infection and colitis. Please continue to take your prescribed antibiotics. I will prescribe pain medications, these are opioids and can cause addiction. Additionally do not combine with other sedating substances or medications. Do not operate machinery or vehicles. Do not otherwise perform tasks that could be dangerous with slowed responses or decreased level of consciousness. You may also use [id number] medications for symptoms however please do not exceed the daily recommended dosage and please keep in mind that many namebrand medications contain the same active ingredients. Please be cautious regarding use of antinausea medications, please do not take both metoclopramide and Zofran at the same time. There is a risk of QT prolongation as discussed. Please return to end emergency department for uncontrolled symptoms, fevers, significant worsening, or anything else that you are concerned about a feel needs emergency department evaluation. Please follow-up with your primary care provider. Coding Level of Care Code ED Mechanic Insulator for Angelica Colon Exam Comprehensive
[2022-03-13 06:24] LABS: HCG, Serum Qual Negative (Negative)
[2022-03-13 06:26] LABS: Alanine Aminotransferase 32 U/L (0-33); Albumin Level 4.3 g/dL (3.5-5.2); Alkaline Phosphatase 54 IU/L (35-105); Anion Gap 20.2 (5-19); Aspartate Amino Transferase 37 U/L (0-32); Blood Urea Nitrogen 8 mg/dL (6-20); Carbon Dioxide 22 mmol/L (22-29); Chloride 104 mmol/L (98-107); Globulin 2.6 g/dL (1.3-4.6); Glomerular Filtration Rate 102.8 mL/min (90-130); Glucose 121 mg/dL (65-115); Lipase 52 U/L (13-60); Osmolality Calculated 294 mOsm/kg (285-295); Potassium 4.2 mmol/L (3.5-5.1); Sodium 142 mmol/L (136-145); Total Bilirubin 0.4 mg/dL (0.15-1.2); Total Protein 6.9 g/dL (6.6-8.7)
[2022-03-13] MEDS: ketorolac 30 mg/mL INJ 15 MG IVP (07:07)
[2022-03-13] MEDS: haloperidol inj 5 mg/mL INJ 1 mL 2 MG IVP (07:08)
[2022-03-13] MEDS: dicyclomine 10 mg Capsule PO (07:08)
--- NOTE | 2022-03-13 07:38 | USR_ITS ---
PROCEDURE INFORMATION: Exam: US Nonobstetric Pelvis; Complete Exam date and time: 03/13/2022 8:08 AM Age: 26 years old Clinical indication: Pelvic pain; Additional info: Llq pain, eval torsion TECHNIQUE: Imaging protocol: Transabdominal pelvic nonobstetric ultrasound. Complete exam. Real time ultrasound with image documentation. COMPARISON: US pelvic complete* [id number] 02/21/2022 3:58 PM FINDINGS: Uterus: Uterus is anteflexed Endometrial stripe is not visible. Uterus measures 6.5 cm x 2.5 cm x 2.6 cm Right ovary/adnexa: Right ovary measures 3.4 cm x 2.6 cm x 2.5 cm Left ovary/adnexa: The left ovary measures 3.8 cm x 2.3 cm x 2.4 cm Intraperitoneal space: No intraperitoneal fluid. Urinary bladder: Normal. US/US pelvic complete* [id number] IMPRESSION: 1. Anteflexed uterus unremarkable myometrium. 2. Endometrial tissues are not visualized. 3. Normal bilateral ovaries. 4. Normal urinary bladder
[2022-03-13 07:39] LABS: Add Urine Microscopic? YES; Bilirubin Urine Neg (Negative); Blood Urine 3+ (Negative); Glucose Urine UA Norm (Normal); Ketones Urine 3+ (Negative); Leukocyte Esterase Urine Negative (Negative); Nitrate Urine Negative (Negative); Protein Urine Neg (Negative); Urine Appearance Cloudy (CLEAR); Urine Color Yellow (Yellow); Urobilinogen Urine Norm (Negative); pH Urine 5 (5-7)
--- NOTE | 2022-03-13 07:45 | USR_ITS ---
PROCEDURE INFORMATION: Exam: US Retroperitoneal; Complete; Kidneys and Bladder Exam date and time: 03/13/2022 8:00 AM Age: 26 years old Clinical indication: Abdominal pain; Flank; Right lower quadrant (rlq); Additional info: Hematuria TECHNIQUE: Imaging protocol: Real-time ultrasound of the retroperitoneum with image documentation. Complete exam focused on the kidneys and bladder. COMPARISON: US abdomen limited [id number] 02/22/2022 8:51 AM FINDINGS: Right kidney: Normal. No stones. No hydronephrosis. 10.7 cm x 4.5 cm x 5.5 cm Left kidney: Normal. No stones. No hydronephrosis. 10.4 cm x 5 cm x 6 cm Urinary bladder: Unremarkable. US/US renal BI* [id number] IMPRESSION: Unremarkable kidneys and bladder.
[2022-03-13 07:49] LABS: RBC Urine 50-80 /hpf (0-2)
[2022-03-13 07:50] LABS: Add Urine Culture? Yes; Bacteria Urine 1+ /hpf
[2022-03-13 08:06] LABS: HCG Qualitative Urine. Negative (Negative)
[2022-03-13] MEDS: HYDROmorphone 1 mg/mL INJ 1 mL 0.5 MG IVP (08:08)
[2022-03-13 08:19] LABS: INR 1.46 (0.8-1.2)
[2022-03-13 08:20] LABS: Partial Thromboplastin Time 36.4 SECONDS (23.9-36.7)
[2022-03-13 09:01] VITALS: BP 146/94; PULSE 98; RESP 16; O2SAT 96
[2022-03-13] MEDS: oxyCODONE 5 mg IR Tab/Cap PO ×2 (09:03→10:43)
[2022-03-13 10:43] VITALS: RESP 18; O2SAT 99
[2022-03-13 10:52] VITALS: BP 155/108; PULSE 98; RESP 18; O2SAT 96
== END 2022-03-13 10:53 | disposition home or self-care (01) ==
PROVIDERS: Emergency Medicine; Emergency Provider Emergency Medicine; PCP Nurse Practitioner
DX: N39.0 Urinary tract infection, site not specified (principal); K52.9 Noninfective gastroenteritis and colitis, unspecified; R11.2 Nausea with vomiting, unspecified; R31.9 Hematuria, unspecified; R10.2 Pelvic and perineal pain; E86.0 Dehydration; Z79.01 Long term (current) use of anticoagulants
CPT/HCPCS: 76770; 76830; 76856; 76857; 80053; 81001; 81025; 83690; 84703; 85025; 85610; 85730; 87086; 96374; 96375; 96376; 99284; J1170; J1630; J1885; J2405; J7030

== ENCOUNTER 2022-03-15 13:22 | Emergency (ER) | payer OTHER, SELFPAY ==
[2022-03-15 13:26] VITALS: BP 128/88; PULSE 95; RESP 15; TEMP 37.1; O2SAT 97; BMI 31.2
[2022-03-15] MEDS: ondansetron 2 mg/ML SDV 2 mL 4 MG IVP (14:23)
--- NOTE | 2022-03-15 14:25 | W.ED.ABDPA2 ---
HPI - Abdominal Pain General: Chief Complaint: Abdominal Pain Stated Complaint: n/v Time Seen by Provider: 03/15/22 14:04 Source: patient Mode of arrival: ambulatory History of Present Illness: 26-year-old female presents emergency room with nausea and vomiting. She was started on oral antibiotics for a bladder infection she states she has had difficulty keeping them down is persistent nausea and vomiting. No hematochezia melena hematemesis cough cramps no fever sweats chills. Mild diffuse abdominal cramping. MD elicited complaint: abdominal pain Onset (ago): day(s) Pain Consistency: intermittent Location: Epigastric Severity: moderate Quality: cramping Radiation: bilateral flank Exacerbating factors: nothing Relieving factors: nothing Associated Symptoms: Reports bloating, change in stool character, GI cramping, diarrhea, hematochezia, nausea, poor appetite and vomiting; Denies anorexia, belching, change in bowel habits, chills, coffee ground emesis, constipation, dyspepsia, dysuria, excessive flatus, fever(s), heartburn, hematuria, hematemesis, fecal incontinence, loose stools, melena and syncope Related Data: Date of Last Menstrual Period: 02/21/22 Review of Systems Const: Reports: fatigue and malaise; Denies: fever(s) or chills ENMT: Denies: throat pain, ear or mastoid pain, nasal discharge or nasal congestion Card: Denies: chest pain, palpitations, irregular heart rhythm or syncope Resp: Denies: dyspnea, productive cough or non-productive cough GI: Reports: abdominal pain, nausea, vomiting, diarrhea, bloating, GI cramping, change in stool character and hematochezia; Denies: hematemesis, coffee ground emesis, heartburn, constipation, belching, excessive flatus, fecal incontinence, change in bowel habits or melena : Denies: flank pain, difficulty voiding, dysuria, urinary frequency, urinary urgency or hematuria Skin/Breast: Denies: rash or pruritus [facility] ED PFSH: Medical History Abnormal uterine bleeding (AUB) Chronic migraine Hypercoagulable state Hematology consultation. No pertinent past medical history Denies diabetes, asthma, hypertension, seizures, DVT/PE in the past prior to portal vein thrombus in February 2022. Pancreatitis Portal vein thrombosis 02/2022---1 week status post surgery and using NuvaRing Surgical History History of tonsillectomy and adenoidectomy age 5 Status post laparoscopic sleeve gastrectomy 02/01/2022---[facility] [place] Family History Father History of DVT (deep vein thrombosis) Cancer skin Diabetes Clotting disorder Chronic kidney disease (CKD) Dementia Mother Cancer cervical Grandfather CAD (coronary artery disease) Grandmother Age related osteoporosis Other Heart disease Hyperlipidemia Hypertension Lung disease Stroke Denies family history of Psychiatric illness Suicide Anesthesia complication Bleeding disorder Social History Smoking and tobacco status: never smoked Second hand smoke exposure: No Smoking risk assessment/counseling performed?: No Alcohol intake: former Desire information about alcohol rehabilitation?: No Counseling given: No Desire information about substance/drug rehabilitation?: No Counseling given: No Adopted: No Caregiver/support person: No Lives independently: Yes Household members: significant other Housing: House Marital status: Single Number of children: 0 service: No Current occupational status: employed Current occupation: [employer] [facility] [employer] [facility] [place] History of recent travel: No Sexually active: Yes Current gender identity: Female Female Reproductive History: Date of last menstrual period: 02/21/22 Physical Exam Const: COMMON NORMALS: no acute distress GENERAL APPEARANCE: cooperative and comfortable ORIENTATION/CONSCIOUSNESS: Yes awake, Yes oriented to person, Yes oriented to place and Yes oriented to time HENMT: COMMON NORMALS: normocephalic, atraumatic and hearing grossly normal bilaterally HEAD & SCALP: normocephalic and atraumatic Neck/C-Spine: COMMON NORMALS: no JVD Resp: COMMON NORMALS: normal respiratory effort, No retractions, No use of accessory muscles and clear to auscultation bilaterally AUSCULTATION: clear to auscultation bilaterally Cardio: COMMON NORMALS: no JVD, regular rate, regular rhythm and No murmurs present (Cardio) RATE: regular rate RHYTHM: regular rhythm GI: COMMON NORMALS: Soft to palpation and No hepatosplenomegaly present AUSCULTATION: Yes normoactive bowel sounds PALPATION: Yes Soft to palpation, No Tenderness to palpation present (GI), No Guarding due to palpation present (GI) and Yes No hepatosplenomegaly present : COMMON NORMALS: Yes no CVA tenderness BLADDER/KIDNEY EXAM: Yes no CVA tenderness Back/Pelvis: COMMON NORMALS: no CVA tenderness Extremity: COMMON NORMALS: normal to inspection, capillary refill normal, no clubbing, cyanosis or edema, no calf tenderness and no pedal edema Neuro: SENSORIUM/ORIENTATION: Yes oriented to person, Yes oriented to place and Yes oriented to time Skin: COMMON NORMALS: no rashes or lesions noted GENERAL SKIN EXAM: no rashes or lesions noted Course Vital Signs: Vital signs: Vital Signs Temperature 98.0 F 03/15/22 16:44 Pulse Rate 83 03/15/22 16:44 Respiratory Rate 14 03/15/22 16:44 Blood Pressure 131/82 03/15/22 16:44 Pulse Oximetry 98 03/15/22 16:44 MDM - Abdominal Pain Medical Decision Making CT lab and imaging reviewed. Patient has some mild anemia but her urine is actually clear. Suggest this point she stopped the oral antibiotics clinical diet for 2 days and then advance as tolerated. Use antiemetics. Her anemia is chronic and longstanding and she is recently seen Dr. Tidwell for this. If she has worsening or change symptoms return. Medical Records I reviewed the patient's medical records. Lab Data I reviewed the patient's lab results. : 03/15/22 14:10 03/15/22 14:10 Labs/Radiology: Laboratory Results WBC 6.8 10^3/uL (4.0-10.0) 03/15/22 14:10 RBC 3.86 10^6/uL (4.1-5.3) L 03/15/22 14:10 Hgb 9.6 g/dL (11.5-15.3) L 03/15/22 14:10 Hct 30.4 % (37.0-47.0) L 03/15/22 14:10 MCV 78.8 fl (81-99) L 03/15/22 14:10 MCH 24.9 pg (28.0-34.0) L 03/15/22 14:10 MCHC 31.6 g/dL (30.0-36.0) 03/15/22 14:10 RDW 15.5 % (12.1-15.1) H 03/15/22 14:10 Plt Count 167 10^3/cmm (130-400) 03/15/22 14:10 MPV 10.7 fL (7.4-10.4) H 03/15/22 14:10 Neut % (Auto) 78.3 % 03/15/22 14:10 Lymph % (Auto) 9.6 % 03/15/22 14:10 [place] % (Auto) 11.3 % 03/15/22 14:10 Eos % (Auto) 0.1 % 03/15/22 14:10 Baso % (Auto) 0.3 % 03/15/22 14:10 Neut # (Auto) 5.28 10^3/uL (1.8-7.7) 03/15/22 14:10 Lymph # (Auto) 0.7 10^3/uL (0.8-4.8) L 03/15/22 14:10 [place] # (Auto) 0.8 10^3/uL (0.2-0.9) 03/15/22 14:10 Eos # (Auto) 0.0 10^3/uL (0.0-0.8) 03/15/22 14:10 Baso # (Auto) 0.0 10^3/uL (0.0-0.1) 03/15/22 14:10 Nucleated RBC % (auto) 0 % 03/15/22 14:10 Nucleated RBCs # 0.0 /100WBC 03/15/22 14:10 Sodium 137 mmol/L (136-145) 03/15/22 14:10 Potassium 3.8 mmol/L (3.5-5.1) 03/15/22 14:10 Chloride 100 mmol/L (98-107) 03/15/22 14:10 Carbon Dioxide 20 mmol/L (22-29) L 03/15/22 14:10 Anion Gap 20.8 (5-19) H 03/15/22 14:10 BUN 7 mg/dL (6-20) 03/15/22 14:10 Creatinine 0.9 mg/dL (0.5-0.9) 03/15/22 14:10 GFR Calculation 76.9 mL/min (90-130) L 03/15/22 14:10 Glucose 96 mg/dL (65-115) 03/15/22 14:10 Calculated Osmolality 282 mOsm/kg (285-295) L 03/15/22 14:10 Lactic Acid 0.9 mmol/L (0.5-2.2) 03/15/22 14:17 Calcium 9.1 mg/dL (8.5-10.5) 03/15/22 14:10 Total Bilirubin 0.6 mg/dL (0.15-1.2) 03/15/22 14:10 AST 20 U/L (0-32) 03/15/22 14:10 ALT 23 U/L (0-33) 03/15/22 14:10 Alkaline Phosphatase 63 IU/L (35-105) 03/15/22 14:10 Total Protein 7.3 g/dL (6.6-8.7) 03/15/22 14:10 Albumin 4.2 g/dL (3.5-5.2) 03/15/22 14:10 Globulin 3.1 g/dL (1.3-4.6) 03/15/22 14:10 Lipase 30 U/L (13-60) 03/15/22 14:10 Urine Color Yellow (Yellow) 03/15/22 14:10 Urine Appearance Hazy (CLEAR) A 03/15/22 14:10 Urine pH 5 (5-7) 03/15/22 14:10 Ur Specific [place] 1.030 (1.005-1.030) 03/15/22 14:10 Urine Protein Neg (Negative) 03/15/22 14:10 Urine Glucose (UA) Norm (Normal) 03/15/22 14:10 Urine Ketones 3+ (Negative) H 03/15/22 14:10 Urine Blood 2+ (Negative) H 03/15/22 14:10 Urine Nitrate Negative (Negative) 03/15/22 14:10 Urine Bilirubin Neg (Negative) 03/15/22 14:10 Urine Urobilinogen Norm mg/dL (Negative) 03/15/22 14:10 Ur Leukocyte Esterase Negative (Negative) 03/15/22 14:10 Urine RBC 0-4 /hpf (0-2) H 03/15/22 14:10 Urine WBC 5-10 /hpf (0-5) H 03/15/22 14:10 Ur Squamous Epith Cells 25-40 /hpf (0-5) H 03/15/22 14:10 Amorphous Sediment Not Reportable 03/15/22 14:10 Urine Bacteria Trace /hpf (NONE) 03/15/22 14:10 Discharge Plan Discharge Patient Disposition: Home Clinical Impression: Nausea and vomiting Condition: Stable Prescriptions: New promethazine 25 mg tablet 25 mg PO Q6H PRN (Reason: nausea and vomiting) Qty: 20 0RF No Action sucralfate 100 mg/mL suspension 10 ml PO BID Qty: 600 2RF pantoprazole [Protonix] 40 mg tablet,delayed release (DR/EC) 40 mg PO DAILY 30 Days Qty: 30 3RF ondansetron HCl 4 mg tablet 4 mg PO Q6H PRN (Reason: nausea and vomiting) Qty: 30 2RF oxycodone 5 mg tablet 5 mg PO Q4H PRN (Reason: pain) Qty: 6 0RF metoclopramide HCl 5 mg tablet,disintegrating 5 mg PO TID Qty: 10 0RF Women's Multivitamin 18 mg iron-400 mcg-500 mg Tablet 1 tab PO DAILY 0RF Bariatric Multivitamins 45 mg iron- 800 mcg-120 mcg Capsule 1 cap PO DAILY 0RF Eliquis 5 mg Tablet 5 mg PO BID@0900,2100 30 Days Qty: 60 0RF Discharge Orders: Discharge ED (Routine); Ordered 03/15/22 Ordered By: Hema Phillips Referrals: Manpreet Alonzo, [employer] [Primary Care Provider] - Discharge Diet: Clear Liquid Discharge Activity: Increase activity as tolerated Patient Instructions: Opioid Safety Activity Restrictions/Additional Instructions: Labs done today showed no significant abnormality. Recommend stopping the oral antibiotic use promethazine instead of ondansetron and follow-up with primary care doctor if not improving in the next week. Coding Level of Care Code ED Machine Heddle Cleaner for Angelica Colon
[2022-03-15 14:26] LABS: Add Urine Microscopic? YES; Bilirubin Urine Neg (Negative); Blood Urine 2+ (Negative); Glucose Urine UA Norm (Normal); Ketones Urine 3+ (Negative); Leukocyte Esterase Urine Negative (Negative); Nitrate Urine Negative (Negative); Protein Urine Neg (Negative); Urine Appearance Hazy (CLEAR); Urine Color Yellow (Yellow); Urobilinogen Urine Norm (Negative); pH Urine 5 (5-7)
[2022-03-15] MEDS: sodium chloride 0.9% 1,000 ML 999 ML IV ×2 (14:27→15:42)
[2022-03-15 14:31] LABS: Add Urine Culture? No; Bacteria Urine TRACE /hpf; RBC Urine 0-4 /hpf (0-2); Squamous Epithelial Cell Urine 25-40 /hpf (0-5)
[2022-03-15 14:34] LABS: Basophils % 0.3 %; Eosinophils % 0.1 %; Hematocrit 30.4 % (37.0-47.0); Hemoglobin 9.6 g/dL (11.5-15.3); Lymphocytes # 0.7 10^3/uL (0.8-4.8); Lymphocytes % 9.6 %; Mean Corpuscular HGB Conc 31.6 g/dL (30.0-36.0); Mean Corpuscular Hemoglobin 24.9 pg (28.0-34.0); Mean Corpuscular Volume 78.8 fl (81-99); Mean Platelet Volume 10.7 fL (7.4-10.4); Monocytes # 0.8 10^3/uL (0.2-0.9); Monocytes % 11.3 %; Neutrophils # 5.28 10^3/uL (1.8-7.7); Neutrophils % 78.3 %; Nucleated Red Blood Cells % 0 %; Platelet Count 167 10^3/cmm (130-400); Red Blood Count 3.86 10^6/uL (4.1-5.3); Red Cell Distribution Width 15.5 % (12.1-15.1); White Blood Count 6.8 10^3/uL (4.0-10.0)
[2022-03-15] MEDS: ketorolac 30 mg/mL INJ IVP (14:38)
[2022-03-15 14:41] LABS: Lactic Sepsis W/Reflex 0.9 mmol/L (0.5-2.2)
[2022-03-15 14:42] LABS: Alanine Aminotransferase 23 U/L (0-33); Albumin Level 4.2 g/dL (3.5-5.2); Alkaline Phosphatase 63 IU/L (35-105); Anion Gap 20.8 (5-19); Aspartate Amino Transferase 20 U/L (0-32); Blood Urea Nitrogen 7 mg/dL (6-20); Calcium 9.1 mg/dL (8.5-10.5); Carbon Dioxide 20 mmol/L (22-29); Chloride 100 mmol/L (98-107); Globulin 3.1 g/dL (1.3-4.6); Glomerular Filtration Rate 76.9 mL/min (90-130); Glucose 96 mg/dL (65-115); Lipase 30 U/L (13-60); Osmolality Calculated 282 mOsm/kg (285-295); Potassium 3.8 mmol/L (3.5-5.1); Sodium 137 mmol/L (136-145); Total Bilirubin 0.6 mg/dL (0.15-1.2); Total Protein 7.3 g/dL (6.6-8.7)
[2022-03-15] MEDS: promethazine 25 mg/mL SDV 1 mL IM (15:42)
--- NOTE | 2022-03-15 16:20 | PC.NURSE ---
Pt requested some water to sip on before going home, stating she wants to make sure she can keep it down before she leaves. Small glass of water provided.
[2022-03-15 16:44] VITALS: BP 131/82; PULSE 83; RESP 14; TEMP 36.7; O2SAT 98
== END 2022-03-15 16:45 | disposition home or self-care (01) ==
PROVIDERS: Emergency Provider Family Medicine; PCP Nurse Practitioner
DX: R11.2 Nausea with vomiting, unspecified (principal); Z79.01 Long term (current) use of anticoagulants
CPT/HCPCS: 80053; 81001; 83605; 83690; 85025; 96361; 96372; 96374; 96375; 99284; J1885; J2405; J2550; J7030

== ENCOUNTER 2022-03-31 16:45 | Outpatient (CLI) | payer OTHER, SELFPAY ==
--- NOTE | 2022-03-31 16:52 | XR_ITS ---
WS: [id number] Lumbar spine, 3 views, 03/31/2022 Clinical Data: R20.2 - Paresthesia of skin Comparison: Lumbar spine, 10/01/2019 Findings: No compression fractures or subluxation is seen. No disc space narrowing is seen. The transverse proc esses and SI joints are normal. XR/XR lumbar spine 2-3V* [id number] Impression: Negative lumbar spine.
== END 2022-03-31 16:46 | disposition home or self-care (01) ==
LOC: RAD 16:48
PROVIDERS: PCP Nurse Practitioner; Visit Provider Nurse Practitioner
DX: R20.2 Paresthesia of skin (principal)
CPT/HCPCS: 72100

== ENCOUNTER 2022-05-04 12:08 | Outpatient (CLI) | payer OTHER, SELFPAY ==
[2022-05-04 13:03] LABS: Basophils % 0.3 %; Eosinophils % 1.4 %; Hematocrit 31.8 % (37.0-47.0); Hemoglobin 9.5 g/dL (11.5-15.3); Lymphocytes # 1.1 10^3/uL (0.8-4.8); Lymphocytes % 36.3 %; Mean Corpuscular HGB Conc 29.9 g/dL (30.0-36.0); Mean Corpuscular Hemoglobin 23.7 pg (28.0-34.0); Mean Corpuscular Volume 79.3 fl (81-99); Mean Platelet Volume 10.7 fL (7.4-10.4); Monocytes # 0.3 10^3/uL (0.2-0.9); Monocytes % 9.8 %; Neutrophils # 1.54 10^3/uL (1.8-7.7); Neutrophils % 52.2 %; Nucleated Red Blood Cells % 0 %; Platelet Count 159 10^3/cmm (130-400); Red Blood Count 4.01 10^6/uL (4.1-5.3); Red Cell Distribution Width 18.7 % (12.1-15.1)
[2022-05-04 13:36] LABS: Alanine Aminotransferase 30 U/L (0-33); Albumin Level 4.5 g/dL (3.5-5.2); Alkaline Phosphatase 61 U/L (35-105); Anion Gap 16.1 (5-19); Aspartate Amino Transferase 29 U/L (0-32); Blood Urea Nitrogen 12 mg/dL (6-20); Calcium 9.7 mg/dL (8.5-10.5); Carbon Dioxide 23 mmol/L (22-29); Chloride 106 mmol/L (98-107); Ferritin 9 ng/mL (15-150); Glomerular Filtration Rate 151.6 mL/min (90-130); Glucose 75 mg/dL (65-115); Iron 32 ug/dL (37-145); Osmolality Calculated 290 mOsm/kg (285-295); Percent Saturation 8.6 % (20-50); Potassium 4.1 mmol/L (3.5-5.1); Sodium 141 mmol/L (136-145); Total Bilirubin 0.5 mg/dL (0.15-1.2); Total Iron Binding Capacity 372 mcg/dl; Total Protein 6.5 g/dL (6.6-8.7); Unsaturated Iron Binding 340 ug/dL (112-347)
[2022-05-04 13:47] LABS: Calcium 9.7 mg/dL (8.5-10.5); Parathyroid Hormone 18.6 pg/mL (15-65)
[2022-05-04 13:57] LABS: 25 Hydroxy Vitamin D 41 ng/mL (30-100); Chol HDL Ratio 4.05 mg/dL (0.0-4.40); Cholesterol 178 mg/dL (0-200); HDL Cholesterol 44 mg/dL (60-100); LDL Cholesterol Calculated 119 mg/dL (50-129); Magnesium 2.2 mg/dL (1.7-2.3); Thyroid Stimulating Hormone 0.84 uIU/mL (0.27-4.20); Triglycerides 73 mg/dL (0-150); Vitamin B12 391 pg/mL (232-1245)
[2022-05-08 14:28] LABS: Zinc Level, Serum or Plasma 55 mcg/dL (60-130)
[2022-05-08 20:58] LABS: Vitamin B1(Thiamin) Plas/Ser <7 nmol/L (8-30)
[2022-05-14 00:27] LABS: PROTHROMBIN (FACTOR II) 20210G NEGATIVE
== END 2022-05-04 12:09 | disposition home or self-care (01) ==
PROVIDERS: Absent Provider Surgery; PCP Nurse Practitioner; Visit Provider Internal Medicine Medical Oncology
DX: D50.0 Iron deficiency anemia secondary to blood loss (chronic) (principal); D68.59 Other primary thrombophilia; I81 Portal vein thrombosis
CPT/HCPCS: 80053; 80061; 82306; 82310; 82607; 82728; 83540; 83550; 83735; 83970; 84425; 84443; 84630; 85025; 85210

== ENCOUNTER → 2022-05-12 09:38 | Outpatient (BNVA) | payer OTHER, SELFPAY | PROVIDERS: PCP Nurse Practitioner; Visit Provider Nurse Practitioner Women's Health | DX: N91.5 Oligomenorrhea, unspecified (principal) | CPT/HCPCS: 84702 ==

== ENCOUNTER → 2022-06-03 11:34 | Outpatient (BNVA) | payer OTHER, SELFPAY | PROVIDERS: PCP Nurse Practitioner; Visit Provider Nurse Practitioner Women's Health | DX: Z30.9 Encounter for contraceptive management, unspecified (principal) | CPT/HCPCS: 81025 ==

== ENCOUNTER 2022-06-14 14:48 | Oncology outpatient (recurring) (ONCR) | payer OTHER, SELFPAY ==
[2022-06-14 15:36] LABS: Basophils % 0.6 %; Eosinophils % 0.8 %; Hematocrit 30.2 % (37.0-47.0); Hemoglobin 8.7 g/dL (11.5-15.3); Lymphocytes # 1.1 10^3/uL (0.8-4.8); Lymphocytes % 30.6 %; Mean Corpuscular HGB Conc 28.8 g/dL (30.0-36.0); Mean Corpuscular Hemoglobin 23.3 pg (28.0-34.0); Mean Corpuscular Volume 80.7 fl (81-99); Mean Platelet Volume 10.2 fL (7.4-10.4); Monocytes # 0.3 10^3/uL (0.2-0.9); Monocytes % 8.9 %; Neutrophils # 2.11 10^3/uL (1.8-7.7); Neutrophils % 58.8 %; Nucleated Red Blood Cells % 0 %; Platelet Count 188 10^3/cmm (130-400); Red Blood Count 3.74 10^6/uL (4.1-5.3); Red Cell Distribution Width 17.8 % (12.1-15.1); White Blood Count 3.6 10^3/uL (4.0-10.0)
[2022-06-14 16:05] LABS: Alanine Aminotransferase 24 U/L (0-33); Albumin Level 4.2 g/dL (3.5-5.2); Alkaline Phosphatase 70 U/L (35-105); Aspartate Amino Transferase 26 U/L (0-32); Blood Urea Nitrogen 9 mg/dL (6-20); Calcium 9.6 mg/dL (8.5-10.5); Carbon Dioxide 25 mmol/L (22-29); Chloride 108 mmol/L (98-107); Ferritin 7 ng/mL (15-150); Globulin 2.7 g/dL (1.3-4.6); Glomerular Filtration Rate 102.8 mL/min (90-130); Glucose 84 mg/dL (65-115); Iron 36 ug/dL (37-145); Osmolality Calculated 294 mOsm/kg (285-295); Sodium 143 mmol/L (136-145); Total Bilirubin 0.3 mg/dL (0.15-1.2); Total Iron Binding Capacity 399 mcg/dl; Total Protein 6.9 g/dL (6.6-8.7); Unsaturated Iron Binding 363 ug/dL (112-347)
== END 2022-06-17 23:59 | disposition home or self-care (01) ==
PROVIDERS: PCP Nurse Practitioner; Visit Provider Internal Medicine Medical Oncology
DX: D50.0 Iron deficiency anemia secondary to blood loss (chronic) (principal)
CPT/HCPCS: 80053; 82728; 83540; 83550; 85025

== ENCOUNTER 2022-07-15 12:05 | Oncology outpatient (recurring) (ONCR) | payer OTHER, SELFPAY ==
[2022-07-15 12:29] LABS: Basophils % 0.6 %; Eosinophils # 0.1 10^3/uL (0.0-0.8); Eosinophils % 1.4 %; Hematocrit 35.1 % (37.0-47.0); Hemoglobin 10.7 g/dL (11.5-15.3); Lymphocytes # 1.5 10^3/uL (0.8-4.8); Lymphocytes % 28.8 %; Mean Corpuscular HGB Conc 30.5 g/dL (30.0-36.0); Mean Corpuscular Hemoglobin 24.9 pg (28.0-34.0); Mean Corpuscular Volume 81.6 fl (81-99); Mean Platelet Volume 10.4 fL (7.4-10.4); Monocytes # 0.5 10^3/uL (0.2-0.9); Monocytes % 9.7 %; Neutrophils # 3.07 10^3/uL (1.8-7.7); Neutrophils % 59.3 %; Nucleated Red Blood Cells % 0 %; Platelet Count 213 10^3/cmm (130-400); White Blood Count 5.2 10^3/uL (4.0-10.0)
[2022-07-15 12:52] LABS: Ferritin 5 ng/mL (15-150); Iron 23 ug/dL (37-145); Percent Saturation 5.9 % (20-50); Total Iron Binding Capacity 387 mcg/dl; Unsaturated Iron Binding 364 ug/dL (112-347)
== END 2022-07-18 23:59 | disposition home or self-care (01) ==
LOC: ONCMED 12:11
PROVIDERS: PCP Nurse Practitioner; Visit Provider Internal Medicine Medical Oncology
DX: D50.0 Iron deficiency anemia secondary to blood loss (chronic) (principal)
CPT/HCPCS: 36415; 82728; 83540; 83550; 85025

== ENCOUNTER 2022-09-06 08:33 | Outpatient (CLI) | payer OTHER, SELFPAY ==
--- NOTE | 2022-09-06 10:00 | CT_ITS ---
WS: [id number] CT ABDOMEN AND PELVIS WITH CONTRAST HISTORY: Follow-up study, portal vein thrombosis after surgery. TECHNIQUE: Imaging performed of the abdomen and pelvis with IV contrast. Single phase imaging of the abdomen. Coronal and sagittal reformats are submitted. All CT scans at [facility] use at [facility] one of these dose optimization techniques: automated exposure control; mA and/or kV adjustment per patient size (includes targeted exams where dose is matched to clinical indication); or iterative re construction. IV CONTRAST: Omnipaque 350; 95 mL IV. Oral contrast: Yes. DLP: 991.01 mGy.cm COMPARISON: 02/12/2022, 03/19/2022 Lower thorax: Lung bases are clear. Heart is normal size. No hiatal hernia. Liver/biliary system: Liver. Cavernous vein transformation. Previously described thrombosis of the po rtal vein is not evident. Now cavernous transformation. No thrombus in the SMV. Splenic vein is kindra l. Gallbladder: Normal. No gallstones or wall thickening. No pericholecystic fluid. Pancreas: Normal size pancreas and pancreatic duct. No adjacent inflammation. Spleen: Variable enhancement within the spleen. No discrete mass. The spleen has slightly increased i n size since the prior study now measuring 14.7 cm in length as compared to 12.9 cm. Adrenal glands: Normal. Right kidney: Normal. Left kidney: No hydronephrosis. Distal LEFT ureteral calcification is no longer present. Aorta: Normal. Lymphadenopathy: None. Free fluid: Physiologic fluid in the pelvis. GI tract: Prior gastric sleeve. No small bowel obstruction. Diffuse fecal retention and constipation. Normal appendix. Abdominal wall: Unremarkable abdominal wall. No hernia. Pelvis: Anteverted uterus. IUD is present. Small amount of free fluid in the cul-de-sac. Normal size ovaries. Bones: Unremarkable. CT/CT abdomen pelvis w con* [id number] IMPRESSION: 1. No acute portal vein thrombosis remaining. There is now cavernous transform ation of the portal vein which can be seen post portal vein thrombosis. 2. Superior mesenteric vein is normal. 3. There is mild enlargement of the spleen with variable enhancement. No throm bus in the splenic vein identified. 4. Prior gastric sleeve. 5. Diffuse constipation.
[2022-09-06] MEDS: iohexol 350 mg/mL 500 mL Btl (per mL) PO (10:42)
[2022-09-06] MEDS: iohexol 350 mg/mL 500 mL Btl (per mL) IV (10:43)
== END 2022-09-06 08:34 | disposition home or self-care (01) ==
PROVIDERS: PCP Nurse Practitioner; Visit Provider Internal Medicine Medical Oncology
DX: I81 Portal vein thrombosis (principal); N20.0 Calculus of kidney; K59.00 Constipation, unspecified; Z98.84 Bariatric surgery status
CPT/HCPCS: 74177; Q9967

== ENCOUNTER 2022-12-01 16:28 | Oncology outpatient (recurring) (ONCR) | payer OTHER, SELFPAY ==
[2022-12-01 16:45] LABS: Basophils % 0.8 %; Eosinophils % 0.8 %; Hematocrit 32.9 % (37.0-47.0); Lymphocytes # 1.4 10^3/uL (0.8-4.8); Lymphocytes % 37.9 %; Mean Corpuscular HGB Conc 30.4 g/dL (30.0-36.0); Mean Corpuscular Hemoglobin 24.4 pg (28.0-34.0); Mean Corpuscular Volume 80.4 fl (81-99); Mean Platelet Volume 10.5 fL (7.4-10.4); Monocytes # 0.3 10^3/uL (0.2-0.9); Monocytes % 7.6 %; Neutrophils % 52.6 %; Nucleated Red Blood Cells % 0 %; Platelet Count 166 10^3/cmm (130-400); Red Blood Count 4.09 10^6/uL (4.1-5.3); Red Cell Distribution Width 18.3 % (12.1-15.1); White Blood Count 3.8 10^3/uL (4.0-10.0)
[2022-12-01 17:15] LABS: D Dimer 0.28 ug/mIFEU (0-0.59)
[2022-12-01 17:18] LABS: Iron 352 ug/dL (37-145)
[2022-12-01 17:30] LABS: Percent Saturation 96.7 % (20-50); Total Iron Binding Capacity 364 mcg/dl; Unsaturated Iron Binding 12 ug/dL (112-347)
== END 2022-12-16 23:59 | disposition home or self-care (01) ==
PROVIDERS: PCP Nurse Practitioner; Visit Provider Internal Medicine Medical Oncology
DX: D50.0 Iron deficiency anemia secondary to blood loss (chronic); I81 Portal vein thrombosis
CPT/HCPCS: 36415; 83540; 83550; 85025; 85378

== ENCOUNTER → 2023-09-12 12:00 | Outpatient (BNVA) | payer OTHER, SELFPAY | PROVIDERS: PCP Nurse Practitioner; Visit Provider Obstetrics & Gynecology | DX: N92.6 Irregular menstruation, unspecified (principal) | CPT/HCPCS: 84702 ==

== ENCOUNTER → 2024-04-17 09:00 | Outpatient (BNVA) | payer OTHER, SELFPAY | PROVIDERS: PCP Nurse Practitioner; Visit Provider Nurse Practitioner Women's Health | DX: N91.5 Oligomenorrhea, unspecified (principal); D50.8 Other iron deficiency anemias; D50.0 Iron deficiency anemia secondary to blood loss (chronic) | CPT/HCPCS: 83036; 83525; 84146; 84403; 84439; 84443; 84481; 84702; 85025 ==

== ENCOUNTER → 2024-05-27 15:44 | Outpatient (BNVA) | payer OTHER, SELFPAY | PROVIDERS: PCP Nurse Practitioner; Visit Provider Nurse Practitioner Women's Health | DX: N91.3 Primary oligomenorrhea (principal) | CPT/HCPCS: 84144 ==

== ENCOUNTER → 2024-06-07 15:42 | Outpatient (BNVA) | payer OTHER, SELFPAY | PROVIDERS: PCP Nurse Practitioner; Visit Provider Nurse Practitioner Women's Health | DX: N92.6 Irregular menstruation, unspecified (principal) | CPT/HCPCS: 84702 ==

== ENCOUNTER → 2024-07-22 15:37 | Outpatient (BNVA) | payer OTHER, SELFPAY | PROVIDERS: PCP Nurse Practitioner; Visit Provider Nurse Practitioner Women's Health | DX: N83.01 Follicular cyst of right ovary (principal); N91.5 Oligomenorrhea, unspecified; N83.02 Follicular cyst of left ovary | CPT/HCPCS: 76830 ==

== ENCOUNTER → 2024-09-24 15:49 | Outpatient (BNVA) | payer OTHER, SELFPAY | PROVIDERS: PCP Nurse Practitioner; Visit Provider Nurse Practitioner Women's Health | DX: N92.6 Irregular menstruation, unspecified (principal); N91.2 Amenorrhea, unspecified | CPT/HCPCS: 84702 ==

== ENCOUNTER → 2025-08-18 11:25 | Outpatient (BNVA) | payer OTHER, SELFPAY | PROVIDERS: PCP Nurse Practitioner; Visit Provider Nurse Practitioner Women's Health | DX: Z34.90 Encounter for supervision of normal pregnancy, unspecified, unspecified trimester (principal); N91.2 Amenorrhea, unspecified | CPT/HCPCS: 84702 ==

== ENCOUNTER 2025-08-20 12:32 | Emergency (ER) | payer OTHER, SELFPAY ==
[2025-08-20] VITALS (23 sets, daily range): BP systolic 103–113; BP diastolic 59–69; PULSE 99; TEMP 36.5; O2SAT 94–100; BMI 23.1
--- NOTE | 2025-08-20 12:54 | CT_ITS ---
WS: [id number] CT ABDOMEN PELVIS TECHNIQUE: Contrast-enhanced CT of the abdomen and pelvis with coronal and sagittal reformatted images. CLINICAL INFORMATION: abd pain COMPARISON: None. DLP: 525.[address] scans at [facility] use at least one of these dose optimization techniques: automated exposure control; mA and/or kV adjustment per patient size (includes targeted exams where dose is matched to clinical indication); or iterative reconstruction. FINDINGS: Peripherally enhancing cystic lesion in the LEFT pelvis measuring 2.8 x 2.7 cm with surrounding enhancement suspicious for ruptured hemorrhagic cyst. Moderate amount of fluid and blood products in the pelvis and cul-de-sac. Normal sigmoid colon. Appendix is within normal limits. No evidence of acute appendicitis. Lung bases are well aerated. Prior postoperative changes gastric sleeve. Cavernous transformation of the gordy vein compatible with history of portal vein thrombosis. Adrenal glands are normal. Normal caliber abdominal aorta. Tiny fat-containing umbilical hernia.] Mild splenomegaly. CT/CT abdomen pelvis w con* [id number] IMPRESSION: 1. Suspected ruptured hemorrhagic cyst in the LEFT pelvis with fluid and blood products in the cul-de-sac. Moderate amount of fluid and blood products. Hemor rhagic cyst measures 2.8 x 2.8 cm. This could be followed up in 1-2 menstrual c ycles with ultrasound. 2. Appendix is within normal limits. 3. 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 4. Gastric sleeve procedure. 5. No other acute findings Notified Hema Phillips DO at 08/20/2025 2:45 PM.
[2025-08-20 13:15] LABS: Hematocrit 37.5 % (36-47); Hemoglobin 12.70 g/dL (11.27-16.99); Mean Corpuscular HGB Conc 33.9 g/dL (30-55); Mean Corpuscular Hemoglobin 29.4 pg (27-33); Mean Corpuscular Volume 86.8 fl (85-98); Nucleated Red Blood Cells % 0 %; Platelet Count 146 10^3/cmm (157-399); Red Blood Count 4.32 10^6/uL (3.85-5.65); White Blood Count 5.05 10^3/uL (3.29-11.43)
--- NOTE | 2025-08-20 13:18 | W.ED.ABDPA2 ---
HPI - Abdominal Pain General: Chief Complaint: Abdominal Pain Stated Complaint: abd pain / NV Time Seen by Provider: 08/20/25 12:49 History of Present Illness: 29-year-old female presents to the emergency room complaining of severe abdominal pain with nausea and vomiting she has had it for the proximately 24 hours it is better if she holds very still. When you came to the room she is curled up in a ball. She denies any dysuria urgency or frequency her last menstrual period is over a month ago. She previously has had a gastric sleeve. No fever sweats or chills. No hematuria. She has has not had any diarrhea. Associated Symptoms: Reports nausea and vomiting; Denies chills, coffee ground emesis, diarrhea, dysuria, fever(s) and hematemesis Related Data Home Medications ?Medication ?Instructions ?Recorded ?Confirmed buspirone 5 mg tablet 5 mg PO ONCE PRN Anxiety 04/17/24 08/20/25 escitalopram oxalate 10 mg tablet 10 mg PO DAILY 08/08/24 08/20/25 semaglutide (weight loss) 0.25 0.25 mg SUBCUT Q7D 08/20/25 08/20/25 mg/0.5 mL subcutaneous pen injector Previous Rx's ?Medication ?Instructions ?Recorded diclofenac sodium 75 mg 75 mg PO Q12H PRN pain #20 tabs 08/20/25 tablet,delayed release hydrocodone 5 mg-acetaminophen 325 1 tab PO Q6H PRN pain #10 tabs 08/20/25 mg tablet promethazine 25 mg tablet 25 mg PO Q6H PRN nausea and 08/20/25 vomiting #15 tabs Allergies Allergy/AdvReac Type Severity Reaction Status Date / Time morphine Allergy ADR-Vomitin Verified 08/20/25 12:43 g Review of Systems Const: Denies: fever(s) or chills Card: Denies: chest pain Resp: Denies: dyspnea GI: Reports: abdominal pain, nausea and vomiting; Denies: hematemesis, coffee ground emesis or diarrhea : Denies: dysuria, urinary frequency or urinary urgency Musc: Denies: neck pain or back pain Skin/Breast: Denies: rash PFSH ED PFSH: Medical History Situational anxiety Iron deficiency anemia Nephrolithiasis Pancreatitis Portal vein thrombosis 02/2022---1 week status post surgery and using NuvaRing Chronic migraine Surgical History [place] teeth extracted 12/31/2021 [place] [place] of tonsillectomy and adenoidectomy age 5 Family History Father Diabetes Hyperlipidemia Hypertension Stroke Clotting disorder report blood clots in his arm/leg; he now has dementia. Mother Breast cancer dx age unknown Ovarian cancer dx age unknown Grandfather Heart disease Paternal Grandmother No problems noted. Denies family history of Colon cancer Uterine cancer Social History Smoking and tobacco/nicotine status: never used tobacco/nicotine Alcohol intake: unknown Substance/Drug Use: unknown Adopted: No Caregiver/support person: No Lives independently: Yes Household members: spouse Housing: House Marital status: Single Number of children: 0 service: No Current occupational status: employed Do you think of yourself as: Straight/Heterosexual Current gender identity: Female Physical Exam Const: COMMON NORMALS: no acute distress GENERAL APPEARANCE: cooperative and comfortable ORIENTATION/CONSCIOUSNESS: Yes awake, Yes oriented to person, Yes oriented to place and Yes oriented to time HENMT: COMMON NORMALS: normocephalic, atraumatic and hearing grossly normal bilaterally HEAD & SCALP: normocephalic and atraumatic Resp: COMMON NORMALS: normal respiratory effort, No retractions, No use of accessory muscles and clear to auscultation bilaterally AUSCULTATION: clear to auscultation bilaterally Cardio: COMMON NORMALS: regular rate, regular rhythm and No murmurs present (Cardio) RATE: regular rate RHYTHM: regular rhythm GI: COMMON NORMALS: No hepatosplenomegaly present AUSCULTATION: Yes normoactive bowel sounds PALPATION: Yes Tenderness to palpation present (GI), No Guarding due to palpation present (GI) and Yes No hepatosplenomegaly present : COMMON NORMALS: Yes no CVA tenderness BLADDER/KIDNEY EXAM: Yes no CVA tenderness Back/Pelvis: COMMON NORMALS: no CVA tenderness Extremity: COMMON NORMALS: normal to inspection, capillary refill normal, no clubbing, cyanosis or edema, no calf tenderness and no pedal edema Neuro: SENSORIUM/ORIENTATION: Yes oriented to person, Yes oriented to place and Yes oriented to time Skin: COMMON NORMALS: no rashes or lesions noted GENERAL SKIN EXAM: no rashes or lesions noted Course Vital Signs: Vital signs: Vital Signs Temperature 97.7 F 08/20/25 12:37 Pulse Rate 99 08/20/25 12:37 Blood Pressure 103/69 08/20/25 15:35 Pulse Oximetry 98 08/20/25 15:35 Oxygen Delivery Me thod Room Air 08/20/25 12:37 MDM - Abdominal Pain Medical Decision Making Medical decision making Social determinants: None I reviewed the patient's medical record. I reviewed the patient's current home meds> Alternate historians: None Differential diagnosis: Appendicitis ovarian cyst bowel obstruction ectopic Lab Review: Labs reviewed no leukocytosis hemoglobin stable platelets slightly low at 146 serum beta-hCG is negative. Chemistries show slight decrease in carbon dioxide but otherwise no significant abnormality. Imaging: CT shows fluid in the cul-de-sac consistent with ruptured ovarian cyst Assessment of risk Level of risk: Low Hospitalization considerations: Pending findings of CT may need hospitalization or surgical consult Reexamination: Patient much improved from initial presentation with pain medications Assessment and plan: Discharge patient home. Beta-hCG was negative she is feeling much better will discharge home with pain medications follow-up with gynecology return if is further problems. Should follow-up with her primary care doctor or junior data analyst within the next few weeks. Lab Data 08/20/25 13:06 08/20/25 13:06 Labs/Radiology: Radiology Impressions Abdomen/Pelvis CT 08/20/25 12:54 IMPRESSION: 1. Suspected ruptured hemorrhagic cyst in the LEFT pelvis with fluid and blood products in the cul-de-sac. Moderate amount of fluid and blood products. Hemorrhagic cyst measures 2.8 x 2.8 cm. This could be followed up in 1-2 menstrual cycles with ultrasound. 2. Appendix is within normal limits. 3. 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 4. Gastric sleeve procedure. 5. No other acute findings Notified Hema Phillips DO at 08/20/2025 2:45 PM. Laboratory Results WBC 5.05 10^3/uL (3.29-11.43) 08/20/25 13:06 RBC 4.32 10^6/uL (3.85-5.65) 08/20/25 13:06 Hgb 12.70 g/dL (11.27-16.99) 08/20/25 13:06 Hct 37.5 % (36-47) 08/20/25 13:06 MCV 86.8 fl (85-98) 08/20/25 13:06 MCH 29.4 pg (27-33) 08/20/25 13:06 MCHC 33.9 g/dL (30-55) 08/20/25 13:06 RDW 14.1 % (12.1-15.1) 08/20/25 13:06 Plt Count 146 10^3/cmm (157-399) L 08/20/25 13:06 MPV 10.2 fL (7.4-10.4) 08/20/25 13:06 Neut % (Auto) 69.3 % 08/20/25 13:06 Lymph % (Auto) 22.2 % 08/20/25 13:06 Bacon % (Auto) 6.9 % 08/20/25 13:06 Eos % (Auto) 0.6 % 08/20/25 13:06 Baso % (Auto) 0.8 % 08/20/25 13:06 Neut # (Auto) 3.50 10^3/uL (1.8-7.7) 08/20/25 13:06 Lymph # (Auto) 1.1 10^3/uL (0.8-4.8) 08/20/25 13:06 Bacon # (Auto) 0.4 10^3/uL (0.2-0.9) 08/20/25 13:06 Eos # (Auto) 0.0 10^3/uL (0.0-0.8) 08/20/25 13:06 Baso # (Auto) 0.0 10^3/uL (0.0-0.1) 08/20/25 13:06 Nucleated RBC % (auto) 0 % 08/20/25 13:06 Nucleated RBCs # 0.0 /100WBC 08/20/25 13:06 Sodium 139 mmol/L (136-145) 08/20/25 13:06 Potassium 3.8 mmol/L (3.5-5.1) 08/20/25 13:06 Chloride 106 mmol/L (98-107) 08/20/25 13:06 Carbon Dioxide 20 mmol/L (22-29) L 08/20/25 13:06 Anion Gap 16.8 (5-19) 08/20/25 13:06 BUN 11 mg/dL (6-20) 08/20/25 13:06 Creatinine 0.8 mg/dL (0.5-0.9) 08/20/25 13:06 GFR Calculation 86.0 mL/min (90-130) L 08/20/25 13:06 Glucose 87 mg/dL (65-115) 08/20/25 13:06 Calculated Osmolality 287 mOsm/kg (285-295) 08/20/25 13:06 Calcium 9.6 mg/dL (8.5-10.5) 08/20/25 13:06 Total Bilirubin 0.7 mg/dL (0.15-1.2) 08/20/25 13:06 AST 16 U/L (0-32) 08/20/25 13:06 ALT 11 U/L (0-33) 08/20/25 13:06 Alkaline Phosphatase 49 U/L (35-105) 08/20/25 13:06 Total Protein 7.5 g/dL (6.6-8.7) 08/20/25 13:06 Albumin 4.8 g/dL (3.5-5.2) 08/20/25 13:06 Globulin 2.7 g/dL (1.3-4.6) 08/20/25 13:06 Lipase 55 U/L (13-60) 08/20/25 13:06 HCG, Qual Negative (Negative) 08/20/25 13:06 All radiology interpretation(s) finalized by discharge Discharge Plan Discharge Patient Disposition: Home Clinical Impression: Ovarian cyst Condition: Stable Prescriptions: New hydrocodone-acetaminophen 5-325 mg tablet 1 tab PO Q6H PRN (Reason: pain) Qty: 10 0RF diclofenac sodium 75 mg tablet,delayed release (DR/EC) 75 mg PO Q12H PRN (Reason: pain) Qty: 20 0RF promethazine 25 mg tablet 25 mg PO Q6H PRN (Reason: nausea and vomiting) Qty: 15 0RF No Action buspirone 5 mg tablet 5 mg PO ONCE PRN (Reason: Anxiety) escitalopram oxalate 10 mg tablet 10 mg PO DAILY semaglutide (weight loss) 0.25 mg/0.5 mL Pen Injector 0.25 mg SUBCUT Q7D Discharge Orders: Discharge ED (Routine); Ordered 08/20/25 Ordered By: Hema Phillips Referrals: Manpreet Alonzo, BROKERAGE COORDINATOR-C [Primary Care Provider, Family Practice] Discharge Diet: Usual diet Discharge Activity: Increase activity as tolerated Patient Instructions: Abdominal Pain (ED), Opioid Safety, Pain Management, Patient Portal & Jocelyne Instructions Activity Restrictions/Additional Instructions: [facility]. It is very important that you follow up as instructed or that you return to the Emergency Department should you have concerns or if your condition changes or worsens in any way. Emergency department visits are focused on emergent conditions, in some cases you may require further evaluation on an outpatient basis. You were seen in the emergency room with complaints of abdominal pain your white count was normal CT shows hemorrhagic ovarian cyst which is likely the cause of your pain. Will discharge you home with diclofenac to take regularly for the next week and hydrocodone to use for breakthrough pain. You are also given promethazine if you have any nausea or vomiting. Follow-up with your primary care doctor. (Please note that included in your discharge packet is information concerning opioid safety and pain management. This information is given to all patients were discharged from the ER regardless of their discharge diagnosis or the medicines they usually take or are prescribed.) Print Language: Turkish Coding Level of Care Code ED Fishing Tool Operator for Angelica Colon
--- NOTE | 2025-08-20 13:29 | PC.PHAR ---
Patient states she takes GLP-1 , that she gets from online. Patient does not know strength , name , or dosage.
[2025-08-20 13:30] LABS: HCG, Serum Qual Negative (Negative)
[2025-08-20] MEDS: ondansetron 2 mg/ML SDV 2 mL 4 MG IVP (13:30)
[2025-08-20] MEDS: morphine 4 mg/mL SDV 1 mL 2 MG IVP (13:36)
[2025-08-20 13:38] LABS: Alanine Aminotransferase 11 U/L (0-33); Albumin Level 4.8 g/dL (3.5-5.2); Alkaline Phosphatase 49 U/L (35-105); Anion Gap 16.8 (5-19); Aspartate Amino Transferase 16 U/L (0-32); Blood Urea Nitrogen 11 mg/dL (6-20); Calcium 9.6 mg/dL (8.5-10.5); Carbon Dioxide 20 mmol/L (22-29); Chloride 106 mmol/L (98-107); Globulin 2.7 g/dL (1.3-4.6); Glucose 87 mg/dL (65-115); Lipase 55 U/L (13-60); Osmolality Calculated 287 mOsm/kg (285-295); Potassium 3.8 mmol/L (3.5-5.1); Sodium 139 mmol/L (136-145); Total Protein 7.5 g/dL (6.6-8.7)
[2025-08-20] MEDS: iohexol 350 mg/mL 500 mL Btl (per mL) IV (13:46)
== END 2025-08-20 16:04 | disposition home or self-care (01) ==
PROVIDERS: Emergency Provider Family Medicine; PCP Nurse Practitioner
DX: N83.202 Unspecified ovarian cyst, left side (principal)
CPT/HCPCS: 36415; 74177; 80053; 83690; 84703; 85025; 96374; 96375; 99285; J1885; J2270; J2405